=== PATIENT | female | born 1960 | race Caucasian/White ===

== ENCOUNTER 2019-10-29 12:15 | Inpatient (IN) | payer OTHER, SELFPAY ==
[2019-10-29] VITALS (11 sets, daily range): BP systolic 112–160; BP diastolic 62–98; PULSE 84–113; RESP 15–20; TEMP 36.6–36.9; O2SAT 94–98; BMI 30.4
--- NOTE | 2019-10-29 12:37 | ED.DCSUM_ITS ---
- ER Visit Summary Date of Service: 10/29/19 Chief Complaint: Elevated blood sugar History of Present Illness: The patient is a 59 F presenting with elevated blood sugar. Patient states this has been ongoing for several weeks. She states that she was unable to afford her diabetes medication, Janumet. She states she was out of the medication for approximately 1 month. She was able to get this filled 2 days ago and is now taking it again. She states her blood sugar this morning was 590. She has had mild abdominal cramping and nausea. She has had urinary frequency and increased thirst. She complains of blurry vision. She states she has had blurry vision in the past when her blood sugars have been running high. She has had a mild nonproductive cough. She denies shortness of breath. She denies fever or other complaints. Physical Examination: Vitals are stable. Heart rate 113. Patient is afebrile. Alert no acute distress. HEENT exam is unremarkable. Neck is supple. Lungs are clear and equal bilaterally. Heart is regular and tachycardic Abdomen is soft mild diffuse tenderness with no rebound or guarding Extremities are unremarkable. Skin is warm and dry. No focal neurologic deficit. Remainder of exam is unremarkable. Emergency Department Course and Treatment: Patient was given IV fluids. With ambulation her pulse ox remains 98% on room air. Chest x-ray shows no acute process. CBC shows white count 14. Chemistries show sodium 127, glucose 713, BUN 28, creatinine 1.4. Patient started on an insulin drip. Discussed with hospitalist for admission. Disposition: Admission Impression: Hyperglycemia, HHS This note was generated with [employer] dictation software. It may contain incorrect words, spelling, and punctuation that were not noted in review of the chart prior to signing ED Disposition - Plan for ED Patient: Referrals: NOT,DEFINED [NON-STAFF] -
[2019-10-29] MEDS: 0.9% Normal Saline 1,000 ML 1000 ML IV (13:18)
--- NOTE | 2019-10-29 13:20 | RAD_ITS ---
STUDY: X-RAY CHEST REASON FOR EXAM: Female, 59 years old. HYPERGLYCEMIA TECHNIQUE: Single AP portable view of the chest. COMPARISON: None. FINDINGS: The lungs are clear and expanded. There is no demonstrated pleural abnormality. Normal size heart. Normal mediastinum and hank. Normal visualized pulmonary arteries. Normal visualized aortic arch and descending thoracic aorta. There are degenerative changes of the visualized thoracic spine. Normal visualized ribs, clavicles, and shoulders. There is no demonstrated abnormality of the visualized soft tissue structures of the upper abdomen. RAD/Chest 1 View (Portable) IMPRESSION: Normal x-ray examination of the chest. Electronically Signed: Kwesi Garcia, at 13:31 EDT , Service support ,
[2019-10-29 13:29] LABS: Mucous, Urine 0 SEEN /hpf (<or=2+); Red Blood Cells-Urine 0 SEEN /hpf (0-5); Squamous Epithelial Cells - UA 0 SEEN /hpf (5-10)
[2019-10-29 13:40] LABS: Absolute Lymphocyte Count 3.27 X10^3/uL (0.83-4.51); Absolute Neutrophil Count 9.5 X10^3/uL (2.0-7.7); Basophil# 0.16 X10^3/uL; Basophil% 1.1 % (0-1); Eosinophil# 0.17 X10^3/uL; Eosinophils% 1.2 % (0-5); Hematocrit 42.6 % (37-47); Hemoglobin 14.5 g/dL (12.0-15.0); Lymphocyte # 3.27 X10^3/ul (4.0); Lymphocyte % 23.4 % (19-41); Mean Corpuscular Hgb 29.7 pg (27.0-32.0); Mean Corpuscular Volume 87.3 fL (81-99); Mean Platelet Vol. 11.6 fl (6.2-12.0); Monocyte# 0.82 X10^3/uL; Monocyte% 5.9 % (0-10); NRBC Flagged by Analyzer 0 % (0-5); Neutrophil # 9.51 X10^3/uL (2.7-7.7); Platelet Count 266 K/mm3 (150-450); RBC Distribution Width CV 12.7 % (11.6-14.6); RBC Distribution Width SD 40.2 fl (35.1-43.9); Red Blood Count 4.88 M/mm3 (4.2-5.4)
[2019-10-29 13:50] LABS: Anion Gap 10 (5-15); BUN 28 mg/dL (7-18); Calcium,Total 9.6 mg/dL (8.5-10.1); Chloride 93 mmol/L (98-107); EST Glomerular Filtration Rate 41 mL/min (>60); Est Glom Filt Rate - Afr Amer 50 mL/min (>60); Estimated Creatinine Clearance 43.65 ml/min; Glucose 713 mg/dL (74-106); Potassium 4.7 mmol/L (3.5-5.1); Sodium Level 127 mmol/L (136-145)
--- NOTE | 2019-10-29 14:20 | NURSING ---
ICU [facility] HHS
[2019-10-29 14:22] LABS: Color, Urine Yellow (Yellow); Glucose, Dipstick 1000 mg/dl (Normal); Ketone-Dipstick Negative (Negative); Leukocyte Esterase-Dipstick 100 /ul (Negative); Nitrite-Dipstick Positive (Negative); Occult Blood-Urine 10 /ul (Negative); Protein-Dipstick Negative (Negative); Urine Bilirubin Dipstick Negative (Negative); Urine Clarity Clear (Clear); Urine Urobilinogen Normal (Normal)
[2019-10-29 14:28] LABS: Bacteria 2+ /hpf (None Seen); White Blood Cells 0-5 SEEN /hpf (0-5)
--- NOTE | 2019-10-29 14:42 | HP.PCM_ITS ---
Problem List (1) Hyponatremia Status: Acute (2) Acute kidney injury Status: Acute (3) Hyperglycemia Status: Deleted (4) Peripheral neuropathy Status: Chronic (5) Type II diabetes mellitus Status: Chronic (6) Depression Status: Chronic (7) Fibromyalgia Status: Chronic History of Present Illness Date of Admission: 10/29/19 Chief Complaint: Thirst, blurry vision. The patient is a 59 year old F with past medical history as mentioned above presented to the emergency room because of thirst, body aches and blurry vision. According to the patient, her symptoms started around 2 weeks ago with thirst, has been feeling very dry, associated with generalized body aches and pains and over the last few days, she started having blurry vision. She described this vision change as not clear vision, blurry, intermittent, associated with headache and without aggravating or relieving factors. She mentioned that she ran out of her Janumet around 1 month ago because it was very expensive. She has been trying to get her prescriptions but because she moved from [place] to [place], she has no PCP at this time. Finally, she was able to get her prescriptions yesterday and she started taking Janumet yesterday. She knew that her blood sugar is elevated because of this blurry vision. In the past, she was in metformin which gave her chronic diarrhea and was discontinued and started on Janumet. She mentioned that her blood sugar usually under control but not during the last month. She denied any cough or sputum production. Denied fever chills. She did complain of dysuria. She mentioned that she had UTI around 2 weeks ago for which she was given antibiotics when she went to urgent care. In the emergency department, patient was afebrile, slightly tachycardic, blood pressure was slight elevated, pulse ox was normal on room air. Routine blood work was remarkable for leukocytosis, sodium of 127, BUN of 28, creatinine of 1.4, blood glucose of 713 mg/dL. Serum bicarb and anion gap was normal. There was no evidence of DKA. Acetone level was negative. Urinalysis revealed clear urine, positive for nitrite, there was 100 leukocyte esterase, 0-5 WBCs and 2+ bacteria. Chest x-ray showed no acute findings. She is being admitted for hyperglycemic hyperosmolar state, uncontrolled type 2 diabetes mellitus, acute kidney injury, hyponatremia and probable acute cystitis. Past Medical History Past Medical History (Chronic Problems): Chronic Problems (This Medical Record has been edited. Action required.) Restless leg syndrome (Chronic) Peripheral neuropathy (Chronic) Type II diabetes mellitus (Chronic) Depression (Chronic) Fibromyalgia (Chronic) Allergies No Known Allergies Allergy (Verified 10/29/19 12:17) Home Medications: Ambulatory Orders Medication Instructions Recorded Acetaminophen/Diphenhydramine 1 tab PO QHS 10/29/19 [Tylenol Pm Ex-Strength Caplet] Duloxetine HCl 60 mg PO BID 10/29/19 Gabapentin 600 mg PO TID 10/29/19 Ropinirole HCl [Requip] 0.5 mg PO QHS 10/29/19 Tizanidine HCl [Zanaflex] 4 mg PO TID 10/29/19 Surgical History: appendectomy, cholecystectomy Psychiatric History: Depression 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 Denies: Chills, Fever Eyes: Reports: Blurred vision. Denies: Double vision, Drainage, Redness HEENT: Denies: Difficulty Hearing, Ear Pain, Eye Pain, Nasal Congestion, Sore Throat Cardiovascular: Denies: Chest Pain, Claudication, Edema, Light Headedness, Palpitations, Paroxysmal Noc. Dyspnea, Syncope Respiratory: Reports: Cough. Denies: Pleuritic Pain, Shortness of Breath, Shortness of breath at rest, Sputum production, Wheezing Gastrointestinal: Reports: Abdominal Pain, Nausea. Denies: Constipation, Diarrhea, Vomiting Genitourinary: Reports: Dysuria, Frequency. Denies: Hematuria Musculoskeletal: Reports: Leg Pain. Denies: Arm Pain, Back Pain, Foot Pain Skin: Denies: Dryness, Rash Neurological: Reports: Blurred vision, Headaches. Denies: Balance problems, Double vision, Change in Speech, Slurred speech, Confusion, Incoordination, Numbness, Tingling Psychiatric: Reports: Depression. Denies: Anxiety Endocrine: Reports: Polydipsia, Polyuria. Denies: Change in Body Habitus VTE Information - Inpt Only VTE Present on Admission: No VTE Mechan Device Prophylaxis: None VTE Pharm Prophylaxis ordered?: Yes Patient Problems: Active and Suspected Problems (This Medical Record has been edited. Action required.) hyperglycemic hyperosmolar state (Acute) Hyponatremia (Acute) Acute kidney injury (Acute) - Physical Exam Vitals/I&O's: Vital Signs Temp Pulse Resp BP Pulse Ox 98 F 111 H 16 160/81 H 98 10/29/19 12:15 10/29/19 12:29 10/29/19 12:29 10/29/19 12:29 10/29/19 12:29 Oxygen Delivery Method Room Air Weight: 200 lb Body Mass Index (BMI) 30.4 General: Alert, Oriented x3, Cooperative, No apparent distress HEENT: Atraumatic, PERRLA, EOMI, Normocephalic Oral: No Gingival or Mucosal Lesions/ Ulcerations, Dry Mucosa Neck: Supple, No JVD, Negative Carotid Bruits, Trachea Midline, Thyroid Normal Size and Texture Lungs: Clear to auscultation, No rhonchi, No wheeze, No rales, Diminished Cardiovascular: Regular rate, Regular Rhythm, Normal S1, Normal S2, PMI Normal, Tachycardic Abdomen: Bowel Sounds Present, Soft, Non Tender, Non-Distended, No Hepato- splenomegaly Extremities: No clubbing, No cyanosis, No edema Skin: No rashes, No breakdown Lymphatic: No Cervical, Supraclavicular, or Inguinal Adenopathy Neurological: Cranial nerves II-XII grossly intact, Motor Exam 5/5 strength throughout Psych/Mental Status: Normal Affect, Appropriate, Alert and oriented to time, place, person, mood and affect Laboratory Results 10/29/19 13:10: Urine Color Yellow, Urine Clarity Clear, Urine pH 6.0, Ur Specific [place] 1.030, Urine Protein Negative, Urine Glucose (UA) 1000 H, Urine Ketones Negative, Urine Occult Blood 10 H, Urine Nitrite Positive H, Urine Karthik irubin Negative, Urine Urobilinogen Normal, Ur Leukocyte Esterase 100 H, Urine RBC 0 SEEN, Urine WBC 0-5 SEEN, Ur Squamous Epith Cells 0 SEEN, Urine Bacteria 2+, Urine Mucus 0 SEEN 10/29/19 13:19: WBC 14.0 H, RBC 4.88, Hgb 14.5, Hct 42.6, MCV 87.3, MCH 29.7, MCHC 34.0, RDW Std Deviation 40.2, RDW Coeff of Max 12.7, Plt Count 266, MPV 11.6, Immature Gran % (Auto) 0.400, Neut % (Auto) 68.0, Lymph % (Auto) 23.4, [place] % (Auto) 5.9, Eos % (Auto) 1.2, Baso % (Auto) 1.1 H, Absolute Neuts (auto) 9.5 H, Absolute Lymphs (auto) 3.27, Nucleated RBC % 0 10/29/19 13:19: Sodium 127 L, Potassium 4.7, Chloride 93 L, Carbon Dioxide 24.0, Anion Gap 10, BUN 28 H, Creatinine 1.40 H, Estim Creat Clear Calc 43.65, Est GFR (MDRD) Af Amer 50 L, Est GFR (MDRD) Non-Af 41 L, BUN/Creatinine Ratio 20.0, Glucose 713 H*, Calcium 9.6 10/29/19 13:19: Acetone Level NEGATIVE Clinical Impression(s) from Imaging Studies Chest X-Ray 10/29/19 13:20 IMPRESSION: Normal x-ray examination of the chest. Electronically Signed: Kwesi Garcia, at 13:31 EDT , Service support , Current Medications Dextrose (D50w Syringe) 0 gm IV X1 PRN; Protocol PRN Reason: Hypoglycemia Protocol Sodium Chloride () 1,000 mls @ 999 mls/hr IV .Q1H1M ONE Stop: 10/29/19 14:52 Insulin Human Lispro 100 unit/ (Sodium Chloride) 100 mls @ 9.072 mls/hr IV .Q11H2M MARGARET; Protocol Assessment/Plan All Active Problems (This Medical Record has been edited. Action required.) hyperglycemic hyperosmolar state (Acute) Hyponatremia (Acute) Acute kidney injury (Acute) This is a 59 years old female patient presented to the emergency room because of thirst, blurry vision, headache, frequency and dysuria and she was found to have highly elevated blood sugar without evidence of DKA consistent with hyperglycemic hyperosmolar state, also found to have acute kidney injury, hyponatremia and probable acute cystitis. #1 hyperglycemic hyperosmolar state: Blood glucose is 713 mg/dl, serum bicarb is 24 and anion gap is 10, acetone is negative. No evidence of DKA. This is due to noncompliance, patient has not been taking her medication for last month because Janumet is been expensive to help. Plan: Admit to PCU stepdown, keep on n.p.o., start IV insulin drip protocol, Accu-Cheks every 2 hours, BMP every 4 hours, IV fluids, IV antiemetics, Tylenol PRN, check hemoglobin A1c, LFT, repeat CBC and BMP tomorrow morning. Patient mentioned that she had significant chronic diarrhea with metformin and that is why she has been on Janumet. Once stable, patient can be started on glimepiride or glipizide and I informed patient that if her hemoglobin A1c is above 9%, she will need to be on insulin. #2 acute kidney injury/hyponatremia: Attributed to dehydration and hypergl ycemia. Patient denies history of kidney problems, baseline kidney functions are normal but it is probably acute. Admission creatinine is 1.4 0. Plan: IV fluids, input output chart, repeat BMP tomorrow morning. #3 probable acute cystitis: With recent history of acute cystitis 2 weeks ago, completed 3 days of antibiotics. She is still symptomatic, urinalysis reviewed, does have leukocytosis but could be reactive. Plan: Urine culture, start IV Rocephin. #4 type 2 diabetes mellitus: Check hemoglobin A1c, IV insulin drip as above, Accu-Cheks. Patient will need to be started on triple antidiabetic medication such as glimepiride or glipizide. She may need to be on insulin if hemoglobin A1c is highly elevated. #5 peripheral neuropathy/fibromyalgia: Continue gabapentin and Zanaflex. #6 depression: Continue Cymbalta. #7 restless leg syndrome: Continue Requip. #8 DVT prophylaxis: Subcu heparin. This note was generated with [employer] dictation software. It may contain incorrect words, spelling, and punctuation that were not noted in checking the note before signing. Inpatient E&M: 28832 Init Hosp L3
[2019-10-29] MEDS: 0.9% Normal Saline 1,000 ML 999 ML IV (15:07)
--- NOTE | 2019-10-29 15:31 | NURSING ---
1523 insulin drip verifed by yuni new as ordered. iv restarted to rt wrist per pt request for pain at site lt ac.
[2019-10-29 16:10] LABS: Bedside Glucose 416 mg/dL (70-110)
[2019-10-29 16:33] LABS: Hemoglobin A1c 9.9 % (4.2-6.3)
[2019-10-29 16:39] LABS: AST(SGOT) 16 U/L (15-37); Alanine Aminotransfer ALT/SGPT 27 U/L (13-56); Albumin, Serum 3.3 g/dL (3.2-5.0); Alkaline Phosphatase 130 U/L (45-117); Anion Gap 6 (5-15); BUN 25 mg/dL (7-18); BUN/Creat Ratio 21.7 RATIO (10-20); Bilirubin, Direct 0.08 mg/dL (0.00-0.30); Calcium,Total 8.7 mg/dL (8.5-10.1); Chloride 109 mmol/L (98-107); Creatinine, Serum 1.15 mg/dL (0.55-1.02); EST Glomerular Filtration Rate 51 mL/min (>60); Est Glom Filt Rate - Afr Amer 62 mL/min (>60); Estimated Creatinine Clearance 53.13 ml/min; Globulin 3.7 g/dL (2.2-4.2); Glucose 384 mg/dL (74-106); Potassium 3.9 mmol/L (3.5-5.1); Sodium Level 136 mmol/L (136-145)
[2019-10-29] MEDS: 0.9% Normal Saline 1,000 ML 125 ML IV (17:04)
[2019-10-29] MEDS: Ceftriaxone 1 GM/50 ML BAG IV (17:04)
[2019-10-29] MEDS: 0.9% Saline Lock 10 ML Syringe IV ×3 (17:06→21:23)
[2019-10-29 17:15] LABS: Bedside Glucose 284 mg/dL (70-110)
[2019-10-29 17:56] LABS: Bedside Glucose 268 mg/dL (70-110)
[2019-10-29 19:01] LABS: Bedside Glucose 210 mg/dL (70-110)
[2019-10-29 19:21] LABS: Bedside Glucose > 500 mg/dL (70-110)
[2019-10-29 20:40] LABS: Anion Gap 6 (5-15); BUN 21 mg/dL (7-18); BUN/Creat Ratio 26.7 RATIO (10-20); Calcium,Total 8.7 mg/dL (8.5-10.1); Chloride 107 mmol/L (98-107); Creatinine, Serum 0.79 mg/dL (0.55-1.02); EST Glomerular Filtration Rate 80 mL/min (>60); Est Glom Filt Rate - Afr Amer 96 mL/min (>60); Estimated Creatinine Clearance 77.35 ml/min; Glucose 260 mg/dL (74-106); Potassium 3.9 mmol/L (3.5-5.1); Sodium Level 136 mmol/L (136-145)
[2019-10-29] MEDS: Insulin Lispro 100 UNIT/ML INSULN.PEN SC (21:13)
[2019-10-29] MEDS: Heparin Injection (Vial) 5,000 UNIT/ML VIAL 5000 UNIT SC (21:14)
[2019-10-29] MEDS: Gabapentin 600 MG Tablet PO (21:15)
[2019-10-29] MEDS: tiZANidine HCl 2 MG Tablet 4 MG PO (21:15)
[2019-10-29] MEDS: DULoxetine Hcl 60 MG Capsule PO (21:16)
[2019-10-29] MEDS: Pramipexole Di-HCl 0.25 MG Tablet PO (21:16)
[2019-10-29] MEDS: Zolpidem Tartrate 5 MG Tablet PO (21:25)
[2019-10-29 22:20] LABS: Bedside Glucose 290 mg/dL (70-110)
[2019-10-30] VITALS (7 sets, daily range): BP systolic 156–161; BP diastolic 77–84; PULSE 86–95; RESP 12–18; TEMP 36.6–36.7; O2SAT 92–100
[2019-10-30 00:17] LABS: Anion Gap 5 (5-15); BUN 21 mg/dL (7-18); Calcium,Total 8.8 mg/dL (8.5-10.1); Chloride 108 mmol/L (98-107); Creatinine, Serum 0.81 mg/dL (0.55-1.02); EST Glomerular Filtration Rate 77 mL/min (>60); Est Glom Filt Rate - Afr Amer 94 mL/min (>60); Estimated Creatinine Clearance 75.44 ml/min; Glucose 321 mg/dL (74-106); Potassium 4.1 mmol/L (3.5-5.1); Sodium Level 136 mmol/L (136-145)
[2019-10-30] MEDS: Insulin Lispro 100 UNIT/ML INSULN.PEN SC ×4 (01:57→12:17)
[2019-10-30] MEDS: 0.9% Normal Saline 1,000 ML 100 ML IV (01:58)
[2019-10-30 02:06] LABS: Bedside Glucose 341 mg/dL (70-110)
[2019-10-30] MEDS: tiZANidine HCl 2 MG Tablet 4 MG PO (05:44)
[2019-10-30] MEDS: Gabapentin 600 MG Tablet PO (05:44)
[2019-10-30 06:26] LABS: Absolute Lymphocyte Count 4.11 X10^3/uL (0.83-4.51); Absolute Neutrophil Count 5.5 X10^3/uL (2.0-7.7); Basophil# 0.11 X10^3/uL; Eosinophil# 0.31 X10^3/uL; Eosinophils% 2.9 % (0-5); Hematocrit 37.4 % (37-47); Hemoglobin 12.7 g/dL (12.0-15.0); Lymphocyte # 4.11 X10^3/ul (4.0); Lymphocyte % 37.9 % (19-41); Mean Corpuscular Hgb 29.5 pg (27.0-32.0); Mean Platelet Vol. 11.6 fl (6.2-12.0); Monocyte# 0.74 X10^3/uL; Monocyte% 6.8 % (0-10); NRBC Flagged by Analyzer 0 % (0-5); Neutrophil # 5.53 X10^3/uL (2.7-7.7); Platelet Count 236 K/mm3 (150-450); RBC Distribution Width CV 12.8 % (11.6-14.6); RBC Distribution Width SD 40.5 fl (35.1-43.9); White Blood Count 10.8 K/mm3 (4.4-11.0)
--- NOTE | 2019-10-30 06:42 | NURSING ---
Nausea with small emesis this am.
[2019-10-30 06:45] LABS: Bedside Glucose 311 mg/dL (70-110)
[2019-10-30 06:47] LABS: Anion Gap 6 (5-15); BUN 18 mg/dL (7-18); BUN/Creat Ratio 25.3 RATIO (10-20); Calcium,Total 8.8 mg/dL (8.5-10.1); Chloride 108 mmol/L (98-107); Creatinine, Serum 0.71 mg/dL (0.55-1.02); EST Glomerular Filtration Rate 89 mL/min (>60); Est Glom Filt Rate - Afr Amer 108 mL/min (>60); Estimated Creatinine Clearance 86.06 ml/min; Glucose 312 mg/dL (74-106); Potassium 4.2 mmol/L (3.5-5.1); Sodium Level 135 mmol/L (136-145)
[2019-10-30] MEDS: glipiZIDE 5 MG Tablet PO (06:50)
[2019-10-30] MEDS: Pantoprazole Sodium 40 MG Tablet PO (10:28)
[2019-10-30] MEDS: DULoxetine Hcl 60 MG Capsule PO (10:31)
[2019-10-30 10:46] LABS: Bedside Glucose 252 mg/dL (70-110)
--- NOTE | 2019-10-30 11:00 | CASEMGMT ---
Addendum entered by Dorinda Barton 10/30/19 14:17: Meds sent to [facility] pharmacy for discharge and per Jul in the pharmacy, pt's total for meds is $395.51 at this time. Per Jul, $388 of that are the insulins(2 quikpens). The reason pt came in was because she did not want to/was able to pay that much out of pocket for her insulin meds. Peterson ESTRADA aware and pt provided new script for insulin vial/syringes/needles that she can obtain for $24.88 for the vial at [facility]. Pt and Taniya RN updated on all at this time, voice understanding. SStaten GERMAN CM Original Note: RN CM assessment: Face to Face with patient for initial transition planning/care coordination assessment. RN KULDEEP introduced self and role at [facility], pt voices understanding and consents to assessment at this time. Pt is sitting up in bed in no distress at this time. Pt is A/Ox4 at this time and answers all questions appropriately at this time. Care providers, pharmacy, and demographics verified at this time. Presentation: Pt with blood sugar of 590 this am, blurred vision-recent move from [facility], no PCP and unable to afford her DM meds. Admitting dx: Hyperglycemia, Uncontrolled DM PCP: No local PCP, but states is waiting on a call back from [facility] for physician/appt set up. Specialists: Pt states no current specialists, but pt provided info for local harpsichord maker, Dr. Donaldo Burroughs, for possible future consult. Preferred Pharmacy: [facility] Insurance: [employer]-pt states just got started on 's insurance. Prescription Benefit: C[employer] Living Will/HPOA: Pt states does not have LW/HPOA but would like AD info at this time. Pt provided with AD info at this time. LNOK: Gurdeep Manjeet, Living Arrangements: Pt states lives with in mobile home with 2 steps and states no concerns at home at this time. Pt states is independent with ADL's. Transportation: Pt states d/t recent vision changes, her or sisters do most of the driving and pt states no transportation concerns at this time. DME/HHC: Pt states no current DME or need for any at this time. Pt states no hx of HHC or SNF in the past. Pt states no concerns with going home at time of discharge. 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 Pt states smokes about a pack/day of cigarettes and does not drink ETOH. Pt states no further concerns/needs at this time. CM to follow for any further discharge planning/needs. Advised pt to ask for CM if any further questions/concerns/needs arise, voices understanding. Pt Goal: Home Plan: Home Ileana PORTER CM
--- NOTE | 2019-10-30 11:27 | PCM.DC ---
- Discharge Diagnoses Current Active Problems: Current Active and Chronic Problems (This Medical Record has been edited. Action required.) hyperglycemic hyperosmolar state (Acute) Restless leg syndrome (Chronic) Hyponatremia (Acute) Acute kidney injury (Acute) Peripheral neuropathy (Chronic) Type II diabetes mellitus (Chronic) Depression (Chronic) Fibromyalgia (Chronic) You will use the following diet at home:: Calorie/Carbohydrate Controlled (specify 1200, 1400, etc) - 1800 usman / day Your food should be the consistency of: Regular Your liquids should be the consistency of: Regular/Thin Discharge Activity: Return to Normal Activity Additional Instructions: Please check your blood sugar upon waking before eating. Check your blood sugar before each meal as well. Record the results of each time you check your blood sugar along with what time of the day it was. Present these findings to your PCP at follow-up. You will need a BMP lab test within a week, ask your new PCP to order this for you. Allergies/Adverse Reactions: Allergies No Known Allergies Allergy (Verified 10/29/19 12:17) Medications to take at Discharge Acetaminophen/Diphenhydramine [Tylenol Pm Ex-Strength Caplet] 1 tab PO QHS 10/29/19 Gabapentin 600 mg PO TID 10/29/19 Tizanidine HCl [Zanaflex] 4 mg PO TID 10/29/19 Duloxetine HCl 60 mg PO BID #60 10/30/19 Insulin Glargine [Lantus SoloStar Pen] 20 units SUBCUT DAILY #1 pen 10/30/19 Insulin Lispro [Humalog KwikPen] 5 unit SUBCUT TIDAC #1 insuln.pen 10/30/19 Ropinirole HCl [Requip] 0.5 mg PO QHS #30 tab 10/30/19 glipiZIDE [Glucotrol] 5 mg PO BIDAC #60 tab 10/30/19 The following prescriptions were given: Duloxetine HCl 60 mg PO BID #60 glipiZIDE [Glucotrol] 5 mg PO BIDAC #60 tab Transmission Status: Pending to [facility] Insulin Lispro [Humalog KwikPen] 5 unit SUBCUT TIDAC #1 insuln.pen Transmission Status: Pending to [facility] Insulin Glargine [Lantus SoloStar Pen] 20 units SUBCUT DAILY #1 pen Transmission Status: Pending to [facility] Ropinirole HCl [Requip] 0.5 mg PO QHS #30 tab Transmission Status: Pending to [facility] Orders to be completed after discharge: Glucometer Location: None Selected Primary Care Physician: NOT,DEFINED [NON-STAFF] - Please follow up with your Primary Care Physician in: 1 week Test Results: Test results from this visit will be discussed in further detail at your follow-up appointment, if applicable. Please Follow Up With: Donaldo Burroughs MD - Endocrinology When: 1-2 weeks Proposed Discharge Date: 10/30/19
--- NOTE | 2019-10-30 13:23 | DS.PCM_ITS ---
<Foster Sullivan - Last Filed: 10/30/19 13:23> Discharge Date and Diagnosis Date of Admission: 10/29/19 Date of Discharge: 10/30/19 - Primary Discharge Diagnosis Active and Suspected Problems (This Medical Record has been edited. Action required.) #1. hyperglycemic hyperosmolar state (Acute) 2/2 DMt2 with medication noncompliance. Hyponatremia (Acute) 2/2 pseudohyponatremia 2/2 above Acute kidney injury 2/2 #1 (Acute) resolved UTI ruled out Depression Fibromyalgia Peripheral neuropathy Obesity - Secondary Discharge Diagnosis Chronic Problems (This Medical Record has been edited. Action required.) Restless leg syndrome (Chronic) Peripheral neuropathy (Chronic) Type II diabetes mellitus (Chronic) Depression (Chronic) Fibromyalgia (Chronic) Hospital Course and Treatment Imaging Results: RAD/Chest 1 View (Portable) IMPRESSION: Normal x-ray examination of the chest. Operations: None Procedures: None Summary of Care Provided: Hospital Course: The patient is a 59 year old F with pmhx notable for Dmt2, who presented to the ER with increased thirst, blurry vision, and body aches. She was found to have severely elevated glucose >700. The patient had just moved here from [place], did not have any of her janumet, and was unable to afford a refill, and had no PCP. She felt increased thirst at home so she tried to quench her thirst with a large quantity of non diet Mountain Dew and Milk. She had no improvement in her symptoms. Acetone was negative and gap was normal. She was admitted and placed on an insulin drip. The following day her symptoms had improved, she tolerated a diet, and she desired to be discharged home. A1C was 9.9. We transitioned her to glipizide with lantus and novolog however she was unable to afford lantus and novolog. Insulin was changed to Novolin N 8 units BID. She was educated concerning a diabetic friendly diet. I also gave her an Rx for a glucometer and accessories, and for syringes/needles. She was discharged home in stable condition. She requested a refill of her home meds until she gets a PCP - I gave her 1 month of her non controlled meds. She will need a BMP this week, follow up with a PCP this week, and I referred her to endocrinology [facility] 2 weeks, Dr. Burroughs. This patient was seen by Foster Sullivan PA-C under the supervision of Dr. Bocanegra. [] - Physical Exam Vitals/I&O's: Vital Signs Temp Pulse Resp BP Pulse Ox 97.9 F 95 18 157/80 H 100 10/30/19 13:21 10/30/19 13:21 10/30/19 13:21 10/30/19 13:21 10/30/19 13:21 Oxygen Delivery Method Room Air Weight: 197 lb 15.602 oz Body Mass Index (BMI) 30.4 Finger Stick Blood Glucose 268 Intake and Output for Last 24 Hours 10/28/19 10/29/19 10/30/19 23:59 23:59 23:59 Intake Total 2778.89 / 2778.89 2118.33 / 2118.33 Output Total 800 / 800 Balance 2778.89 / 2778.89 1318.33 / 1318.33 General: Alert, Oriented x3, Cooperative HEENT: Atraumatic, PERRLA, EOMI, Normocephalic Neck: Supple, No JVD, Negative Carotid Bruits Lungs: Clear to auscultation, Normal air movement Cardiovascular: Regular rate, No murmurs Abdomen: Bowel Sounds Present, Soft, Non Tender, Obese Extremities: No edema, Capillary Refill Less than 3 Seconds Skin: No rashes, No breakdown Musculoskeletal: No Tenderness to Palpation of Joints or Extremities Neurological: Cranial nerves II-XII grossly intact Psych/Mental Status: Normal Affect, Appropriate, Alert and oriented to time, place, person, mood and affect Microbiology Past 72 Hours 10/29/19 13:10 Urine, Clean Catch Urine Culture - Preliminary Gram negative keira Laboratory Results 10/29/19 13:10: Urine Color Yellow, Urine Clarity Clear, Urine pH 6.0, Ur Specific [place] 1.030, Urine Protein Negative, Urine Glucose (UA) 1000 H, Urine Ketones Negative, Urine Occult Blood 10 H, Urine Nitrite Positive H, Urine Bilirubin Negative, Urine Urobilinogen Normal, Ur Leukocyte Esterase 100 H, Urine RBC 0 SEEN, Urine WBC 0-5 SEEN, Ur Squamous Epith Cells 0 SEEN, Urine Bacteria 2+, Urine Mucus 0 SEEN 10/29/19 13:19: WBC 14.0 H, RBC 4.88, Hgb 14.5, Hct 42.6, MCV 87.3, MCH 29.7, MCHC 34.0, RDW Std Deviation 40.2, RDW Coeff of Max 12.7, Plt Count 266, MPV 11.6, Immature Gran % (Auto) 0.400, Neut % (Auto) 68.0, Lymph % (Auto) 23.4, [place] % (Auto) 5.9, Eos % (Auto) 1.2, Baso % (Auto) 1.1 H, Absolute Neuts (auto) 9.5 H, Absolute Lymphs (auto) 3.27, Nucleated RBC % 0 10/29/19 13:19: Sodium 127 L, Potassium 4.7, Chloride 93 L, Carbon Dioxide 24.0, Anion Gap 10, BUN 28 H, Creatinine 1.40 H, Estim Creat Clear Calc 43.65, Est GFR (MDRD) Af Amer 50 L, Est GFR (MDRD) Non-Af 41 L, BUN/Creatinine Ratio 20.0, Glucose 713 H*, Calcium 9.6 10/29/19 13:19: Acetone Level NEGATIVE 10/29/19 13:19: Hemoglobin A1c 9.9 H 10/29/19 14:50: POC Glucose > 500 H* 10/29/19 16:02: POC Glucose 416 H 10/29/19 16:07: Sodium 136, Potassium 3.9, Chloride 109 H, Carbon Dioxide 21.0, Anion Gap 6, BUN 25 H, Creatinine 1.15 H, Estim Creat Clear Calc 53.13, Est GFR (MDRD) Af Amer 62, Est GFR (MDRD) Non-Af 51 L, BUN/Creatinine Ratio 21.7 H, Glucose 384 H, Calcium 8.7, Total Bilirubin 0.30, Direct Bilirubin 0.08, AST 16, ALT 27, Alkaline Phosphatase 130 H, Total Protein 7.0, Albumin 3.3, Globulin 3.7 10/29/19 17:02: POC Glucose 284 H 10/29/19 17:51: POC Glucose 268 H 10/29/19 18:54: POC Glucose 210 H 10/29/19 20:08: Sodium 136, Potassium 3.9, Chloride 107, Carbon Dioxide 23.0, Anion Gap 6, BUN 21 H, Creatinine 0.79, Estim Creat Clear Calc 77.35, Est GFR (MDRD) Af Amer 96, Est GFR (MDRD) Non-Af 80, BUN/Creatinine Ratio 26.7 H, Glucose 260 H, Calcium 8.7 10/29/19 21:12: POC Glucose 290 H 10/29/19 23:51: Sodium 136, Potassium 4.1, Chloride 108 H, Carbon Dioxide 23.0, Anion Gap 5, BUN 21 H, Creatinine 0.81, Estim Creat Clear Calc 75.44, Est GFR (MDRD) Af Amer 94, Est GFR (MDRD) Non-Af 77, BUN/Creatinine Ratio 26.0 H, Glucose 321 H, Calcium 8.8 10/30/19 01:55: POC Glucose 341 H 10/30/19 05:56: WBC 10.8, RBC 4.30, Hgb 12.7, Hct 37.4, MCV 87.0, MCH 29.5, MCHC 34.0, RDW Std Deviation 40.5, RDW Coeff of Max 12.8, Plt Count 236, MPV 11.6, Immature Gran % (Auto) 0.400, Neut % (Auto) 51.0, Lymph % (Auto) 37.9, [place] % (Auto) 6.8, Eos % (Auto) 2.9, Baso % (Auto) 1.0, Absolute Neuts (auto) 5.5, Absolute Lymphs (auto) 4.11, Nucleated RBC % 0 10/30/19 05:56: Sodium 135 L, Potassium 4.2, Chloride 108 H, Carbon Dioxide 21.0, Anion Gap 6, BUN 18, Creatinine 0.71, Estim Creat Clear Calc 86.06, Est GFR (MDRD) Af Amer 108, Est GFR (MDRD) Non-Af 89, BUN/Creatinine Ratio 25.3 H, Glucose 312 H, Calcium 8.8 10/30/19 06:34: POC Glucose 311 H 10/30/19 10:16: POC Glucose 252 H Current Medications Acetaminophen (Tylenol) 650 mg PO Q6H PRN PRN PRN Reason: Pain Score 1-10/Temp > 100.7 F Dextrose (D50w Syringe) 0 gm IV X1 PRN; Protocol PRN Reason: Hypoglycemia Duloxetine HCl (Cymbalta) 60 mg PO BID MARGARET Last Admin: 10/30/19 10:31 Dose: 60 mg Documented by: Gabapentin (Neurontin) 600 mg PO TID [facility] Last Admin: 10/30/19 05:44 Dose: 600 mg Documented by: Glipizide (Glucotrol) 5 mg PO BIDAC [facility] Last Admin: 10/30/19 06:50 Dose: 5 mg Documented by: Glucagon () 1 mg IM .X1 PRN PRN Reason: Hypoglycemia Heparin Sodium (Porcine) (Heparin Na) 5,000 unit SC Q12 [facility] Last Admin: 10/30/19 10:31 Dose: Not Given Documented by: Ceftriaxone Sodium (Rocephin) 1 gm in 50 mls @ 100 mls/hr IV Q24 [facility] Last Admin: 10/30/19 10:31 Dose: Not Given Documented by: Sodium Chloride () 250 mls @ 15 mls/hr IV .[id number] PRN PRN Reason: Saline Flush Sodium Chloride () 250 mls @ 15 mls/hr IV .[id number] PRN PRN Reason: Additional IVPB Infusion Insulin Glargine (Lantus (Bkc)) 20 units SC DAILY [facility] Last Admin: 10/30/19 10:28 Dose: 20 units Documented by: Insulin Human Lispro (Humalog Kwikpen (Bkc)) 0 unit SC Q4 [facility]; Protocol Last Admin: 10/30/19 10:30 Dose: 3 unit Documented by: Insulin Human Lispro (Humalog Kwikpen (Bkc)) 5 unit SC TIDAC [facility] Last Admin: 10/30/19 12:17 Dose: 5 units Documented by: Ondansetron HCl (Zofran) 4 mg IV Q8H PRN PRN PRN Reason: NAUSEA/VOMITING Pantoprazole Sodium (Protonix) 40 mg PO DAILY [facility] Last Admin: 10/30/19 10:28 Dose: 40 mg Documented by: Pramipexole Dihydrochloride (Mirapex) 0.25 mg PO QHS [facility] Last Admin: 10/29/19 21:16 Dose: 0.25 mg Documented by: Senna/Docusate Sodium (Senokot-S, [place]-Colace) 2 tablet PO BID PRN PRN Reason: Constipation Sodium Chloride () 10 - 40 ml IV UD PRN PRN Reason: SALINE FLUSH Last Admin: 10/29/19 21:23 Dose: 10 ml Documented by: Tizanidine HCl (Zanaflex) 4 mg PO TID MARGARET Last Admin: 10/30/19 05:44 Dose: 4 mg Documented by: Zolpidem Tartrate (Ambien (Generic)) 5 mg PO QHS PRN PRN PRN Reason: INSOMNIA Last Admin: 10/29/19 21:25 Dose: 5 mg Documented by: Discharge Diet: 1800 Calorie Control Diet Discharge Activity: Return to Normal Activity Home Medications: Medications to take at Discharge Acetaminophen/Diphenhydramine [Tylenol Pm Ex-Strength Caplet] 1 tab PO QHS 10/29/19 Gabapentin 600 mg PO TID 10/29/19 Tizanidine HCl [Zanaflex] 4 mg PO TID 10/29/19 Duloxetine Hcl [Cymbalta] 60 mg PO BID #60 cap 10/30/19 Insulin NPH Human Isophane [Humulin N] 8 unit SQ BID #1 vial 10/30/19 Ropinirole HCl [Requip] 0.5 mg PO QHS #30 tab 10/30/19 Syringe with Needle, 1 ml [Syringe with Needle Disp] 1 ea MC BID #60 disp.syrin 10/30/19 glipiZIDE [Glucotrol] 5 mg PO BIDAC #60 tab 10/30/19 Following Prescrptions Were Given to Patient: Duloxetine Hcl [Cymbalta] 60 mg PO BID #60 cap Transmission Status: Received by [facility]pharmacy [id number] glipiZIDE [Glucotrol] 5 mg PO BIDAC #60 tab Transmission Status: Received by [facility] Insulin NPH Human Isophane [Humulin N] 8 unit SQ BID #1 vial Transmission Status: Received by [facility] Ropinirole HCl [Requip] 0.5 mg PO QHS #30 tab Transmission Status: Received by [facility] Syringe with Needle, 1 ml [Syringe with Needle Disp] 1 ea MC BID #60 disp.syrin Prescription Printed Other Amb Orders: Glucometer Location: None Selected Primary Care Physician: NOT,DEFINED [NON-STAFF] - Please follow up with your Primary Care Physician in: 1 week Please Follow Up With: Donaldo Burroughs MD - Endocrinology When: 1-2 weeks Disposition: Home Minutes spent on discharge:: 40 Patient Condition:: Stable Medical Necessity - Tobacco Use Smoking Status: Current every day smoker Tobacco Use: Cigarettes Meaningful Use Info Meaningful Use Diagnoses (Choose all that apply): None applicable <Rosendo Bocanegra - Last Filed: 10/30/19 14:10> Discharge Date and Diagnosis - Secondary Discharge Diagnosis Chronic Problems (This Medical Record has been edited. Action required.) Restless leg syndrome (Chronic) Peripheral neuropathy (Chronic) Type II diabetes mellitus (Chronic) Depression (Chronic) Fibromyalgia (Chronic) Hospital Course and Treatment Operations: None Procedures: None Summary of Care Provided: Patient seen and examined independently. Data reviewed. I agree with the above note by the physician seismic survey assistant. The patient is a 59 year old F presents with blurred vision, polyuria, polydipsia and myalgias. Patient was found to be hyper ischemic hyperosmolar state due to uncontrolled diabetes. Patient had been on Janumet but had stopped taking it due to cost but despite that and knowing that she is a diabetic and would not eat or drink, patient was still drinking regular sodas such as Mountain Dew and Pepsi and drinking large quantities of them. A1c was 9.9. Patient was transitioned over to insulin and I was doing well. Due to cost, the plan would be to discharge patient with NovoLog twice daily. The hope is that with patient following a more stringent diet and essentially not drinking her calories at that would help with her glycemic control and that the hope that she will be able to be transitioned off of insulin and perhaps put back on oral medications, such as metformin. [] - Physical Exam Vitals/I&O's: Vital Signs Temp Pulse Resp BP Pulse Ox 36.6 C 95 18 157/80 H 100 10/30/19 13:21 10/30/19 13:21 10/30/19 13:21 10/30/19 13:21 10/30/19 13:21 Oxygen Delivery Method Room Air Weight: 89.8 kg Body Mass Index (BMI) 30.4 Finger Stick Blood Glucose 268 Intake and Output for Last 24 Hours 10/28/19 10/29/19 10/30/19 23:59 23:59 23:59 Intake Total 2778.89 / 2778.89 2118.33 / 2118.33 Output Total 800 / 800 Balance 2778.89 / 2778.89 1318.33 / 1318.33 General: Alert, Cooperative HEENT: Atraumatic Neck: No Nodes, Trachea Midline Lungs: Clear to auscultation, Normal air movement, No rhonchi, No wheeze Cardiovascular: Regular rate, No murmurs Abdomen: Bowel Sounds Present, Soft, Non Tender, Obese Extremities: No edema, No Calf Tenderness Skin: No rashes, No breakdown Psych/Mental Status: Normal Affect, Appropriate Microbiology Past 72 Hours 10/29/19 13:10 Urine, Clean Catch Urine Culture - Preliminary Gram negative keira Laboratory Results 10/29/19 13:10: Urine Color Yellow, Urine Clarity Clear, Urine pH 6.0, Ur Sp ecific [place] 1.030, Urine Protein Negative, Urine Glucose (UA) 1000 H, Urine Ketones Negative, Urine Occult Blood 10 H, Urine Nitrite Positive H, Urine Bilirubin Negative, Urine Urobilinogen Normal, Ur Leukocyte Esterase 100 H, Urine RBC 0 SEEN, Urine WBC 0-5 SEEN, Ur Squamous Epith Cells 0 SEEN, Urine Bacteria 2+, Urine Mucus 0 SEEN 10/29/19 13:19: Acetone Level NEGATIVE 10/29/19 13:19: Hemoglobin A1c 9.9 H 10/29/19 14:50: POC Glucose > 500 H* 10/29/19 16:02: POC Glucose 416 H 10/29/19 16:07: Sodium 136, Potassium 3.9, Chloride 109 H, Carbon Dioxide 21.0, Anion Gap 6, BUN 25 H, Creatinine 1.15 H, Estim Creat Clear Calc 53.13, Est GFR (MDRD) Af Amer 62, Est GFR (MDRD) Non-Af 51 L, BUN/Creatinine Ratio 21.7 H, Glucose 384 H, Calcium 8.7, Total Bilirubin 0.30, Direct Bilirubin 0.08, AST 16, ALT 27, Alkaline Phosphatase 130 H, Total Protein 7.0, Albumin 3.3, Globulin 3.7 10/29/19 17:02: POC Glucose 284 H 10/29/19 17:51: POC Glucose 268 H 10/29/19 18:54: POC Glucose 210 H 10/29/19 20:08: Sodium 136, Potassium 3.9, Chloride 107, Carbon Dioxide 23.0, Anion Gap 6, BUN 21 H, Creatinine 0.79, Estim Creat Clear Calc 77.35, Est GFR (MDRD) Af Amer 96, Est GFR (MDRD) Non-Af 80, BUN/Creatinine Ratio 26.7 H, Glucose 260 H, Calcium 8.7 10/29/19 21:12: POC Glucose 290 H 10/29/19 23:51: Sodium 136, Potassium 4.1, Chloride 108 H, Carbon Dioxide 23.0, Anion Gap 5, BUN 21 H, Creatinine 0.81, Estim Creat Clear Calc 75.44, Est GFR (MDRD) Af Amer 94, Est GFR (MDRD) Non-Af 77, BUN/Creatinine Ratio 26.0 H, Glucose 321 H, Calcium 8.8 10/30/19 01:55: POC Glucose 341 H 10/30/19 05:56: WBC 10.8, RBC 4.30, Hgb 12.7, Hct 37.4, MCV 87.0, MCH 29.5, MCHC 34.0, RDW Std Deviation 40.5, RDW Coeff of Max 12.8, Plt Count 236, MPV 11.6, Immature Gran % (Auto) 0.400, Neut % (Auto) 51.0, Lymph % (Auto) 37.9, [place] % (Auto) 6.8, Eos % (Auto) 2.9, Baso % (Auto) 1.0, Absolute Neuts (auto) 5.5, Absolute Lymphs (auto) 4.11, Nucleated RBC % 0 10/30/19 05:56: Sodium 135 L, Potassium 4.2, Chloride 108 H, Carbon Dioxide 21.0, Anion Gap 6, BUN 18, Creatinine 0.71, Estim Creat Clear Calc 86.06, Est GFR (MDRD) Af Amer 108, Est GFR (MDRD) Non-Af 89, BUN/Creatinine Ratio 25.3 H, Glucose 312 H, Calcium 8.8 10/30/19 06:34: POC Glucose 311 H 10/30/19 10:16: POC Glucose 252 H Discharge Diet: 1800 Calorie Control Diet Discharge Activity: Return to Normal Activity Disposition: Home Patient Condition:: Stable Medical Necessity - Tobacco Use Tobacco Use: Cigarettes Meaningful Use Info Meaningful Use Diagnoses (Choose all that apply): None applicable Inpatient E&M: 91330 Disch Hosp
--- NOTE | 2019-10-30 13:44 | CASEMGMT ---
SW gave patient information on [email or web address] and [facility] for future use with expensive medications. Nuria MAYA MSW
== END 2019-10-30 13:37 | disposition home or self-care (01) | DRG 638 ==
LOC: ED 14:48 → PCU 15:12
PROVIDERS: Admitting Provider Hospitalist; Emergency Provider Emergency Medicine
DX: E11.00 Type 2 diabetes mellitus with hyperosmolarity without nonketotic hyperglycemic-hyperosmolar coma (NKHHC) (principal); E87.1 Hypo-osmolality and hyponatremia; N17.9 Acute kidney failure, unspecified; M79.7 Fibromyalgia; F32.9 Major depressive disorder, single episode, unspecified; E66.9 Obesity, unspecified; Z91.14 Patient's other noncompliance with medication regimen; Z68.30 Body mass index [BMI] 30.0-30.9, adult; E11.42 Type 2 diabetes mellitus with diabetic polyneuropathy; G25.81 Restless legs syndrome; F17.210 Nicotine dependence, cigarettes, uncomplicated
CPT/HCPCS: 36415; 71045; 80048; 80076; 81001; 82009; 82962; 83036; 85025; 87077; 87086; 87088; 87186; 94762; 96360; 97802; 99251; 99285; 99406; J7030; A4216; G0463

== ENCOUNTER → 2020-01-27 17:31 | Outpatient (CLI) | payer OTHER, SELFPAY ==
[2019-12-25 10:48] VITALS: BMI 30.4
== END ==
PROVIDERS: Referring Provider Family Medicine; Visit Provider Family Medicine
DX: N39.0 Urinary tract infection, site not specified (principal)
CPT/HCPCS: 87086; 87088; 87186

== ENCOUNTER → 2020-01-30 14:43 | Outpatient (CLI) | payer OTHER, SELFPAY ==
[2019-12-25 10:48] VITALS: BMI 30.4
--- NOTE | 2020-01-30 14:45 | US_ITS ---
STUDY: RENAL ULTRASOUND - COMPLETE REASON FOR EXAM: Female, 59 years old. BILATERAL FLANK PAIN TECHNIQUE: Ultrasound evaluation of the kidneys was performed with real-time and static swift-scale imaging. COMPARISON: None. FINDINGS: RIGHT KIDNEY: Normal location of the right kidney, which is normal in size. The right kidney measures 11.7 x 4.8 x 3.8 cm. There is a normal cortex of the right kidney. The renal cortex measures 1.9 cm. There is no right renal mass or cyst. There are no right renal calculi. There is no right hydronephrosis. DISTAL RIGHT URETER: There is non-visualization of the distal right ureter. There is no demonstrated right ureterovesical junction calculus. There is a visualized right ureteral jet. LEFT KIDNEY: Normal location of the left kidney, which is normal in size. The left kidney measures 12.0 x 5.1 x 4.7 cm. There is a normal cortex of the left kidney. The renal cortex measures 1.4 cm. There is no left renal mass or cyst. There are no left renal calculi. There is no left hydronephrosis. DISTAL LEFT URETER: There is non-visualization of the distal left ureter. There is no demonstrated left ureterovesical junction calculus. There is a visualized left ureteral jet. AORTA: There is no elongation or tortuosity of the abdominal aorta. I.V.C.: The IVC is patent. BLADDER: The bladder is incompletely distended US/Kidney and Bladder IMPRESSION: No suspicious sonographic findings Electronically Signed: Smith Gilbert MD at 8:20 EDT , Service support ,
== END ==
PROVIDERS: PCP Family Medicine; Referring Provider Family Medicine; Visit Provider Family Medicine
DX: R10.9 Unspecified abdominal pain (principal)
CPT/HCPCS: 76770

== ENCOUNTER → 2020-03-30 12:30 | Outpatient (CLI) | payer OTHER, SELFPAY ==
[2019-12-25 10:48] VITALS: BMI 30.4
[2020-03-30 17:00] LABS: AST(SGOT) 15 U/L (15-37); Alanine Aminotransfer ALT/SGPT 24 U/L (13-56); Albumin, Serum 3.9 g/dL (3.2-5.0); Alkaline Phosphatase 98 U/L (45-117); Anion Gap 5 (5-15); BUN 15 mg/dL (7-18); BUN/Creat Ratio 15.8 RATIO (10-20); CRP 3.69 mg/L (0.0-3.0); Calcium,Total 9.5 mg/dL (8.5-10.1); Chloride 108 mmol/L (98-107); Creatinine, Serum 0.95 mg/dL (0.55-1.02); EST Glomerular Filtration Rate 64 mL/min (>60); Est Glom Filt Rate - Afr Amer 77 mL/min (>60); Glucose 59 mg/dL (74-106); Potassium 4.1 mmol/L (3.5-5.1); Protein, Total 7.9 g/dL (6.4-8.2); Sodium Level 141 mmol/L (136-145)
[2020-03-30 17:01] LABS: Rheumatoid Factor < 10.0 IU/mL (<15)
[2020-03-30 17:13] LABS: Absolute Neutrophil Count 3.9 X10^3/uL (2.0-7.7); Basophil# 0.12 X10^3/uL; Basophil% 1.3 % (0-1); Eosinophil# 0.27 X10^3/uL; Eosinophils% 2.9 % (0-5); Hematocrit 41.4 % (37-47); Hemoglobin 13.1 g/dL (12.0-15.0); Lymphocyte % 43.7 % (19-41); Mean Corp Hgb Conc 31.6 g/dL (32-36); Mean Corpuscular Hgb 29.9 pg (27.0-32.0); Mean Corpuscular Volume 94.5 fL (81-99); Mean Platelet Vol. 12.3 fl (6.2-12.0); Monocyte# 0.87 X10^3/uL; Monocyte% 9.5 % (0-10); NRBC Flagged by Analyzer 0 % (0-5); Neutrophil # 3.87 X10^3/uL (2.7-7.7); Neutrophil % 42.3 % (47-70); Platelet Count 276 K/mm3 (150-450); RBC Distribution Width CV 13.8 % (11.6-14.6); RBC Distribution Width SD 47.8 fl (35.1-43.9); Red Blood Count 4.38 M/mm3 (4.2-5.4); White Blood Count 9.2 K/mm3 (4.4-11.0)
[2020-03-30 17:27] LABS: Erythrocyte Sedimentation Rate 9 mm/hr (0-30)
[2020-04-01 15:20] LABS: ANTINUCLEAR ANTIBODIES DIRECT Negative (Negative)
== END ==
PROVIDERS: PCP Family Medicine; Referring Provider Family Medicine; Visit Provider Family Medicine
DX: M25.50 Pain in unspecified joint (principal)
CPT/HCPCS: 36415; 80053; 85025; 85652; 86038; 86140; 86431

== ENCOUNTER → 2020-07-30 11:41 | Outpatient (CLI) | payer OTHER, SELFPAY ==
[2019-12-25 10:48] VITALS: BMI 30.4
[2020-07-30 13:06] LABS: Amphetamine Urine VISTA NEGATIVE (<1000 ng/mL); Barbiturate Urine VISTA NEGATIVE (< 200 ng/mL); Benzodiazepine Urine VISTA POSITIVE (< 200 ng/mL); Cocaine Urine VISTA NEGATIVE (< 300 ng/mL); Ecstacy Urine VISTA NEGATIVE (< 500 ng/mL); Methadone Urine VISTA NEGATIVE (< 300 ng/mL); PCP Urine VISTA NEGATIVE (< 25 ng/mL); THC Urine VISTA POSITIVE (< 50 ng/mL); Vista UDS pH Range 6
== END ==
PROVIDERS: PCP Family Medicine; Referring Provider Anesthesiology Pain Medicine; Visit Provider Anesthesiology Pain Medicine
DX: F11.20 Opioid dependence, uncomplicated (principal)
CPT/HCPCS: 80307

== ENCOUNTER → 2020-12-10 12:59 | Outpatient (CLI) | payer OTHER, SELFPAY ==
[2019-12-25 10:48] VITALS: BMI 30.4
--- NOTE | 2020-12-10 13:00 | VDLE_ITS ---
Reason For Study: pain Procedure LEFT This is a venous duplex using B-mode, color GSV is normal. flow and spectral Doppler. CFV is compressible, spontaneous, phasic, Exam performed in department. competent, and demonstrates normal The exam was abbreviated due to the COVID 19 augmentation. protocol. FV is compressible, spontaneous, phasic, The exam was diagnostic. competent and demonstrates normal A preliminary report was called and/or faxed augmentation. to Dr. Correa. POP V is compressible, spontaneous, phasic, competent and demonstrates normal augmentation. T/P Trunk is compressible. PTV is compressible. LT PerV is compressible. VL/Venous Duplex US, Unilateral Interpretation Summary Deep veins of the left lower extremity are patent and compressible segmentally. There is no evidence of left lower extremity deep vein thrombosis. Valvular competence appears intac t within the proximal deep venous system on the left . The left great saphenous vein appears patent a nd compressible segmentally. Ordering Physician: Santos Correa Performed By: Toni Hernández RVT
== END ==
LOC: CVS 12:59
PROVIDERS: PCP Family Medicine; Referring Provider Orthopaedic Surgery; Visit Provider Orthopaedic Surgery
DX: M79.605 Pain in left leg (principal)
CPT/HCPCS: 93971

== ENCOUNTER → 2021-01-23 07:48 | Outpatient (CLI) | payer OTHER, SELFPAY ==
[2019-12-25 10:48] VITALS: BMI 30.4
--- NOTE | 2021-01-23 07:52 | MRI_ITS ---
HISTORY: Low back pain, bilateral leg pain. TECHNIQUE: Multiplanar and multisequence MR images of the lumbar spine. IV Contrast dosage and agent: None. # of images incl. paperwork: 135. COMPARISON: None. FINDINGS: VERTEBRAE: Vertebral body heights maintained. Degenerative bone marrow endplate changes of T12-L1 and L4-5. ALIGNMENT: No significant anterior or posterior subluxation. CONUS: Normal morphology and position at L1. SOFT TISSUES: Mild posterior subcutaneous edema. Hepatomegaly. Subcentimeter right renal cysts. 9 mm indeterminate left renal lesion. INTERVERTEBRAL DISCS: T12-L1: Mild disc bulge with facet arthropathy. No significant central canal stenosis or foraminal narrowing. L1-2:No significant posterior disc herniation, central canal stenosis, or foraminal narrowing. L2-3, L3-4: Minimal disc bulges and facet arthropathy with very mild bilateral foraminal narrowing. No significant central canal stenosis. L4-5: Mild posterior disc bulge osteophyte complex and facet arthropathy with minimal narrowing of the thecal sac. Mild left and mild-moderate right foraminal narrowing. L5-S1: Left disc protrusion and facet arthropathy resulting in no significant central canal stenosis, moderate left foraminal narrowing, and abutment of the left L5 nerve root. MRI/Spine Lumbar (Routine) IMPRESSION: Mild multilevel degenerative disc disease as described above. Small indeterminate left renal lesion. Recommend correlation with ultrasound or multiphasic CT/MRI to assess for complex cyst versus small solid mass. at 0858 Reported and signed by: Katie Vance MD Electronically Signed: Katie Vance MD at 8:57 EDT Tel , Service support ,
[2021-01-23 10:12] LABS: Amphetamine Urine VISTA NEGATIVE (<1000 ng/mL); Barbiturate Urine VISTA NEGATIVE (< 200 ng/mL); Benzodiazepine Urine VISTA NEGATIVE (< 200 ng/mL); Cocaine Urine VISTA NEGATIVE (< 300 ng/mL); Ecstacy Urine VISTA NEGATIVE (< 500 ng/mL); Methadone Urine VISTA NEGATIVE (< 300 ng/mL); PCP Urine VISTA NEGATIVE (< 25 ng/mL); THC Urine VISTA POSITIVE (< 50 ng/mL); Vista UDS pH Range 5
== END ==
PROVIDERS: PCP Family Medicine; Referring Provider Anesthesiology Pain Medicine; Visit Provider Anesthesiology Pain Medicine
DX: M54.16 Radiculopathy, lumbar region (principal); M54.17 Radiculopathy, lumbosacral region; M51.36 Other intervertebral disc degeneration, lumbar region; M51.37 Other intervertebral disc degeneration, lumbosacral region
CPT/HCPCS: 72148; 80307

== ENCOUNTER 2021-09-17 10:42 | Outpatient (CLI) | payer OTHER, SELFPAY ==
[2021-09-17 12:35] LABS: Vitamin D,25 Hydroxy 21.6 ng/mL
[2021-09-17 12:44] LABS: AST(SGOT) 24 U/L (15-37); Alanine Aminotransfer ALT/SGPT 38 U/L (13-56); Albumin, Serum 3.9 g/dL (3.2-5.0); Alkaline Phosphatase 121 U/L (45-117); Anion Gap 5 (5-15); BUN 13 mg/dL (7-18); BUN/Creat Ratio 13.1 RATIO (10-20); Bilirubin, Direct < 0.05 mg/dL (0.00-0.30); Calcium,Total 9.6 mg/dL (8.5-10.1); Chloride 104 mmol/L (98-107); Cholesterol 234 mg/dL (200); Creatinine, Serum 0.99 mg/dL (0.55-1.02); EST Glomerular Filtration Rate 60 mL/min (>60); Est Glom Filt Rate - Afr Amer 73 mL/min (>60); Globulin 4.5 g/dL (2.2-4.2); Glucose 322 mg/dL (74-106); High Density Lipoprotein 57 mg/dL; Potassium 4.4 mmol/L (3.5-5.1); Protein, Total 8.4 g/dL (6.4-8.2); Sodium Level 132 mmol/L (136-145); Triglycerides 196 mg/dL; Very Low Density Lipoprotein 39 mg/dL (5-40)
== END 2021-09-17 23:59 | disposition home or self-care (01) ==
LOC: MFPLAB 10:44
PROVIDERS: PCP Family Medicine; Referring Provider Family Medicine; Visit Provider Family Medicine
DX: E55.9 Vitamin D deficiency, unspecified (principal); E11.65 Type 2 diabetes mellitus with hyperglycemia
CPT/HCPCS: 36415; 80048; 80061; 80076; 82306

== ENCOUNTER → 2022-04-12 | Outpatient (CLI) | payer BC, SELFPAY ==
--- NOTE | 2022-04-12 06:30 | MRI_ITS ---
STUDY: MRI LUMBAR SPINE WITHOUT CONTRAST REASON FOR EXAM: Female, 61 years old. L3-L4 herniated disc. TECHNIQUE: Standardized fat and water weighted pulse sequences were obtained in the sagittal and axial planes. COMPARISON: MRI lumbar spine without contrast 01/23/2021. FINDINGS: T11-T12: (Sagittal only). Normal endplates. Normal disc height, hydration and morphology. No ventral extradural defect. Normal central canal and bilateral intervertebral neural foramina. T12-L1: Tiny Schmorl''s nodes in the adjacent anterior endplates with reactive edema of the underlying vertebral marrow are new findings. Moderate disc space height narrowing is unchanged. Mild ventral extra dural defect due to posterior bulging annulus is unchanged. Normal facet joints. Normal central canal and bilateral lateral recesses. Normal bilateral intervertebral neural foramina. Small right renal cyst is visible at this level but unchanged. Normal lumbar lordosis. There is no substantial scoliosis. Normal conus medullaris that terminates at the T12-L1 disc space level. L1-2: Normal endplates. Normal disc height, hydration and morphology. Normal bilateral facet joints. Normal central canal and bilateral lateral recesses. Normal bilateral intervertebral neural foramina. Small right anterior renal cyst is unchanged. L2-3: Normal endplates. Normal disc height, hydration and morphology. Normal bilateral facet joints. Normal central canal and bilateral lateral recesses. Normal bilateral intervertebral neural foramina. L3-4: Normal endplates. Normal disc height, hydration and morphology. Mild bilateral degenerative facet arthropathy are unchanged. Normal central canal and bilateral lateral recesses. Normal bilateral intervertebral neural foramina. Small round right renal cyst is unchanged. L4-5: Normal endplates. Moderate disc space height narrowing. Mild ventral extradural defect is posterior bulging annulus and unchanged. Mild left degenerative facet arthropathy is unchanged. Normal right facet joint. Normal central canal and bilateral lateral recesses. Mild stenosis of the right intervertebral neural foramen is unchanged. Normal left intervertebral neural foramen. L5-S1: Normal endplates. Mild disc space height narrowing. Small posterior bulging annulus is unchanged. No ventral extradural defect due to presence of ventral epidural fat. Normal facet joints. Normal central canal and bilateral lateral recesses. Moderate stenosis of the left intervertebral neural foramen is unchanged. Normal right intervertebral neural foramen. Normal visualized sacral ala. Normal visualized paraspinous soft tissue structures. MRI/Spine Lumbar (Routine) IMPRESSION: 1. Moderate stenosis of the left L5-S1 intervertebral neural foramen and small L5 posterior bulging annulus are unchanged. 2. L4-L5 posterior bulging annulus and mild stenosis of the right intervertebral neural foramen are unchanged. 3. No MRI evidence of lumbar extruded disc fragment. 4. At least 3 small right renal cysts but unchanged since 01/23/2021. Electronically Signed: Isaias Frazier MD at 14:31 EDT ,
== END | disposition home or self-care (01) ==
LOC: MRI 06:30
PROVIDERS: PCP Family Medicine; Referring Provider Orthopaedic Surgery; Visit Provider Orthopaedic Surgery
DX: M51.26 Other intervertebral disc displacement, lumbar region (principal)
CPT/HCPCS: 72148

== ENCOUNTER → 2022-07-28 | Outpatient (CLI) | payer BC, SELFPAY ==
--- NOTE | 2022-07-28 12:14 | CT_ITS ---
STUDY: CT ABDOMEN AND PELVIS WITHOUT CONTRAST REASON FOR EXAM: Female, 61 years old. Suspect kidney stone. Right flank pain. RADIATION DOSAGE (If Supplied By Facility): CTDIvol = ( 13.25 ) mGy, DLP = ( 638.64 ) mGycm TECHNIQUE: Transaxial images were obtained from the dome of the diaphragm to the symphysis pubis without oral contrast, and without intravenous contrast. Sagittal and coronal images were reconstructed. Individualized dose optimization techniques were used for this CT. COMPARISON: None. FINDINGS: The visualized lung bases are unremarkable. Minimal anterior pericardial thickening. Normal liver. There are surgical clips in the gallbladder fossa consistent with a prior cholecystectomy. Normal spleen. Normal pancreas. There is a small, circumscribed, smooth, low attenuation left adrenal mass, consistent with an adrenal adenoma. This measures 1 cm. Normal right adrenal gland. Normal right kidney. Normal left kidney. Normal visualized stomach. Normal small intestine. There are scattered colonic diverticula consistent with diverticulosis. The appendix is visualized and appears normal. There is scattered atherosclerotic calcification of the abdominal aorta, without a demonstrated aneurysm. Normal inferior vena cava. Normal retroperitoneum. Normal urinary bladder. Bilateral tubal ligation clips are seen. Normal abdominal wall. There are degenerative changes of the visualized lumbar spine. CT/Abdomen/Pelvis without Cont IMPRESSION: Status post cholecystectomy. Scattered sigmoid diverticula. Small left adrenal adenoma. No evidence of ureteral obstruction. Electronically Signed: Kwesi Garcia MD at 12:59 EST ,
== END | disposition home or self-care (01) ==
LOC: CT 12:13
PROVIDERS: PCP Family Medicine; Visit Provider Nurse Practitioner Family
DX: R31.9 Hematuria, unspecified (principal)
CPT/HCPCS: 74176

== ENCOUNTER → 2022-07-28 | Outpatient (CLI) | payer BC, SELFPAY ==
[2022-07-28 12:23] LABS: Bacteria 0 SEEN /hpf (None Seen); Mucous, Urine 0 SEEN /hpf (<or=2+); Red Blood Cells-Urine 0 SEEN /hpf (0-5); Squamous Epithelial Cells - UA 0 SEEN /hpf (5-10); White Blood Cells 0 SEEN /hpf (0-5)
[2022-07-28 12:33] LABS: Color, Urine Yellow (Yellow); Glucose, Dipstick Normal (Normal); Ketone-Dipstick Negative (Negative); Leukocyte Esterase-Dipstick 100 /ul (Negative); Nitrite-Dipstick Negative (Negative); Occult Blood-Urine Negative /ul (Negative); Protein-Dipstick Negative (Negative); Specific Gravity, Urine 1.025 (1.002-1.030); Urine Bilirubin Dipstick Negative (Negative); Urine Clarity Clear (Clear); Urine Urobilinogen Normal (Normal)
[2022-07-28 17:49] LABS: Absolute Lymphocyte Count 4.13 X10^3/uL (0.83-4.51); Absolute Neutrophil Count 5.2 X10^3/uL (2.0-7.7); Basophil# 0.13 X10^3/uL; Basophil% 1.3 % (0-1); Eosinophil# 0.16 X10^3/uL; Eosinophils% 1.5 % (0-5); Hematocrit 43.2 % (37-47); Hemoglobin 13.8 g/dL (12.0-15.0); Lymphocyte # 4.13 X10^3/ul (0.83-4.51); Lymphocyte % 39.9 % (19-41); Mean Corp Hgb Conc 31.9 g/dL (32-36); Mean Corpuscular Hgb 29.6 pg (27.0-32.0); Mean Corpuscular Volume 92.7 fL (81-99); Mean Platelet Vol. 11.3 fl (6.2-12.0); Monocyte# 0.68 X10^3/uL; Monocyte% 6.6 % (0-10); NRBC Flagged by Analyzer 0 % (0-5); Neutrophil # 5.21 X10^3/uL (2.7-7.7); Neutrophil % 50.3 % (47-70); Platelet Count 311 K/mm3 (150-450); RBC Distribution Width CV 13.4 % (11.6-14.6); RBC Distribution Width SD 45.8 fl (35.1-43.9); Red Blood Count 4.66 M/mm3 (4.2-5.4); White Blood Count 10.4 K/mm3 (4.4-11.0)
[2022-07-28 18:36] LABS: Anion Gap 9 (5-15); BUN 17 mg/dL (7-18); BUN/Creat Ratio 17.2 RATIO (10-20); Calcium,Total 9.8 mg/dL (8.5-10.1); Chloride 105 mmol/L (98-107); Creatinine, Serum 0.99 mg/dL (0.55-1.02); EST Glomerular Filtration Rate 61 mL/min (>60); Est Glom Filt Rate - Afr Amer 73 mL/min (>60); Glucose 161 mg/dL (74-106); Potassium 4.3 mmol/L (3.5-5.1); Sodium Level 140 mmol/L (136-145)
== END | disposition home or self-care (01) ==
LOC: LABSPEC 12:11
PROVIDERS: PCP Family Medicine; Visit Provider Nurse Practitioner Family
DX: R10.9 Unspecified abdominal pain (principal)
CPT/HCPCS: 36415; 80048; 81001; 85025; 87077; 87086; 87088; 87186

== ENCOUNTER → 2023-07-19 | Outpatient (CLI) | payer BC, SELFPAY ==
--- OUTSIDE RECORDS SUMMARY | 2023-07-19 16:57 | XMS RPT_ITS | CCD ---
Author Name Unknown Address [address] [place] [address] Organization [facility] Care Team Providers Care Sales Management Trainee Name Role Phone MICHELINE RODRÍGUEZ DO Primary Care Physician [phone] MICHELINE RODRÍGUEZ DO Primary Care Unavailable ARIEL ZUNIGA, ANA Ponce Attending UnavailWALTER Pearl Attending Unavailable ANNE RAIN, MICHELINE Primary Care Unavailable GENA CARD DO Attending Unavailable ANNE RAIN, MICHELINE Primary Care Unavailable Medications Current Medications Medication Drug Class(es) Dates Sig (Normalized) Sig (Original) acetaminophen 325 mg / oxyCODONE hydrochloride 5 mg oral tablet (3 sources) Opioid Agonist Start: 03-16-2022 End: 03-19-2022 take 1 tablet by mouth every six hours as needed for pain Percocet 5 mg-325 mg oral tablet Dose = 1 tab(s), Oral, q6h, PRN for pain, X 3 day(s), # 12 tab(s), 0 Refill(s), Sciatica, 88.6 Start Date: 03/16/22 Stop Date: 03/19/22 Status: Ordered Completed/Discontinued Medications Medication Drug Class(es) Dates Sig (Normalized) Sig (Original) acetaminophen 325 mg / HYDROcodone bitartrate 5 mg oral tablet (2 sources) Opioid Agonist Start: 07-03-2020 End: 07-06-2020 take 1 tablet by mouth every six hours as needed for pain Fulton 325- 5 mg oral tablet Dose = 1 tab(s), Oral, q6h, PRN as needed for pain, # 12 tab(s), 0 Refill(s), Flank pain Start Date: 07/03/20 Stop Date: 07/06/20 Status: Ordered diazePAM 5 mg oral tablet (2 sources) Benzodiazepine Start: 07-05-2020 End: 07-10-2020 Valium 5 mg oral tablet Dose : 5 mg = 1 tab(s), Oral, TID, PRN Muscle spasm, # 15 tab(s), 0 Refill(s), Back pain Start Date: 07/05/20 Stop Date: 07/10/20 Status: Ordered etodolac 400 mg oral tablet (2 sources) Nonsteroidal Anti-inflammatory Drug Start: 03-09-2022 End: 03-16-2022 etodolac 400 mg oral tablet Dose : 400 mg = 1 tab(s), Oral, BID, # 14 tab(s), 0 Refill(s), Sciatica Start Date: 03/09/22 Stop Date: 03/16/22 Status: Ordered predniSONE 20 mg oral tablet (2 sources) Start: 07-03-2020 End: 07-08-2020 predniSONE 20 mg oral tablet Dose : 20 mg = 1 tab(s), Oral, Daily, # 5 tab(s), 0 Refill(s), Flank pain Start Date: 07/03/20 Stop Date: 07/08/20 Status: Ordered Problems Problem Classification Problem Date Documented Da te Episodic/Chronic Spondylosis; intervertebral disc disorders; other back problems (4 sources) Sciatica; Translations: [Sciatica, unspecified side] Onset: 03-09-2022 Episodic Results Test Name Value Interpretation Reference Range Facil ity Vital Signs Date Time Vital Sign Value Performing Clinician Faci lity 03-16-2022 06:55-0400 Body height 172.[address] ANA GEORGE MD [facility] 03-16-2022 06:55-0400 Body temperature 98.24 [degF] DR ANA GEORGE MD [facility] 03-16-2022 06:55-0400 Body weight 88.[address] ANA GEORGE MD [facility] 03-16-2022 06:55-0400 Diastolic blood pressure 92 mm[Hg] DR ANA GEORGE MD [facility] 03-16-2022 06:55-0400 Heart rate 93 /min DR ANA GEORGE MD [facility] 03-16-2022 06:55-0400 Respiratory rate 18 /min DR ANA GEORGE MD [facility] 03-16-2022 06:55-0400 Systolic blood pressure 168 mm[Hg] DR ANA GEORGE MD [facility] 03-09-2022 04:50-0400 Body height 172.7 cm GENA CARD DO [facility] 03-09-2022 04:50-0400 Body temperature 98.24 [degF] GENA CARD DO [facility] 03-09-2022 04:50-0400 Body weight 86.4 kg GENA CARD DO [facility] 03-09-2022 04:50-0400 Diastolic blood pressure 84 mm[Hg] GENA CARD DO [facility] 03-09-2022 04:50-0400 Heart rate 98 /min GENA CARD DO [facility] 03-09-2022 04:50-0400 Respiratory rate 20 /min GENA CARD DO [facility] 03-09-2022 04:50-0400 Systolic blood pressure 175 mm[Hg] GENA CARD DO [facility] Encounters Encounter Date Encounter Type Care Provider Facility Start: 03-16-2022 End: 03-16-2022 Emergency department patient visit MICHELINE ANNE DO Facility:B Start: 03-16-2022 End: 03-16-2022 Emergency department patient visit DR ANA GEORGE MD [facility] Start: 03-11-2022 End: 03-11-2022 Emergency department patient visit WALTER NAJERA Facility:B Start: 03-09-2022 End: 03-09-2022 Emergency department patient visit GENA CARD Facility:B Start: 03-09-2022 End: 03-09-2022 Emergency department patient visit GENA CARD DO [facility] Procedures Date Procedure Procedure Detail Performing Clinician Appendectomy GENA CARD DO Cholecystectomy GENA MARLA ROBERTSON DO Immunizations Immunization Date Immunization Notes Care Provider Fa [facility] 02-23-2020 tetanus toxoid, redu alan diphtheria toxoid, and acellular pertussis vaccine, adsorbed GENA CARD DO [facility] Payers Date Payer Category Payer Unknown [id number] 1960 Unknown [id number] 1960 Unknown [id number] 1960 Unknown [id number] Social History Date Type Detail Facility Tobacco smoking status [facility] Start: 03-16-2022 Tobacco smoking status Heavy t obacco smoker (finding) [facility] Functional Status Date Assessment Result Facility 03-16-2022 Functional Status Standard Safet y ID band on, Call device within reach, Bed in low position, Wheels locked, Upper/Half-Length side-rails up, personal items within reach [facility] 03-09-2022 Functional [facility] Mental Status Date Assessment Result Facility 09-07-2022 Mental Status Orientation Oriented x 4 [facility] 03-09-2022 Mental Status Oriented x 4 [facility] Discharge instructions 03-16-2022 Note Date & Type Note Facility 03-16-2022 Hospital Discharg e instructions Patient Education 03/16/2022 08:44:19 Possible Causes of Low Back or Leg Pain Possible Causes of Low Back or Leg Pain BIG: The symptoms in your back or leg may be due to pressure on a nerve. This pressure may be caused by a damaged disk or by abnormal bone growth. Either way, you may feel pain, burning, tingling, or numbness. If you have pressure on a nerve that connects to the sciatic nerve, pain may shoot down your leg. Pressure from the disk Constant wear and tear can weaken a disk over time and cause back pain. The disk can then be damaged by a sudden movement or injury. If its soft center starts to bulge, the disk may press on a nerve. Or the outside of the disk may tear, and the soft center may squeeze through and pinch a nerve. Pressure from bone As a disk wears out, the vertebrae right above and below the disk start to touch. This can put pressure on a nerve. Often, abnormal bone (called bone spurs) grows where the vertebrae rub against each other. This can cause the foramen or the spinal canal to narrow (called stenosis) and press against a nerve. [id number] [employer]. [address] [place] [address]. All rights reserved. This information is not intended as a substitute for professional medical care. Always follow your healthcare professional's instructions. 03/16/2022 08:44:16 Sciatica Sciatica Sciatica is a condition that causes pain in the lower back that spreads down into the buttock, hip, and leg. Sometimes the leg pain can happen without any back pain. Sciatica happens when a spinal nerve is irritated or has pressure put on it as comes out of the spinal canal in the lower back. This most often happens when a bulge or rupture of a nearby spinal disk presses on the nerve. Sciatica can also be caused by a narrowing of the spinal canal (spinal stenosis) or spasm of the muscle in the buttocks that the sciatic nerve passes through (pyriform muscle). Sciatica is also called lumbar radiculopathy. Sciatica may begin after a sudden twisting or bending force, such as in a car accident. Or it can happen after a simple awkward movement. In either case, muscle spasm often also happens. Muscle spasm makes the pain worse. A healthcare provider makes a diagnosis of sciatica from your symptoms and a physical exam. Unless you had an injury from a car accident or fall, you usually won t have X-rays taken at this time. This is because the nerves and disks in your back can t be seen on an X-ray. If the provider sees signs of a compressed nerve, you will need to schedule an MRI scan as an outpatient. Signs of a compressed nerve include loss of strength in a leg. Most sciatica gets better with medicine, exercise, and physical therapy. If your symptoms continue after at least 3 months of medical treatment, you may need surgery or injections to your lower back. Home care Follow these tips when caring for yourself at home: You may need to stay in bed the first few days. But as soon as possible, begin sitting up or walking. This will help you avoid problems that come from staying in bed for long periods. When in bed, try to find a position that is comfortable. A firm mattress is best. Try lying flat on your back with pillows under your knees. You can also try lying on your side with your knees bent up toward your chest and a pillow between your knees. Avoid sitting for long periods. This puts more stress on your lower back than standing or walking. Use heat from a hot shower, hot bath, or heating pad to help ease pain. Massage can also help. You can also try using an ice pack. You can make your own ice pack by putting ice cubes in a plastic bag. Wrap the bag in a thin towel. Try both heat and cold to see which works best. Use the method that feels best for 20 minutes several times a day. You may use acetaminophen or ibuprofen to ease pain, unless another pain medicine was prescribed. Note: If you have chronic liver or kidney disease, talk with your healthcare provider before taking these medicines. Also talk with your provider if you ve had a stomach ulcer or gastrointestinal bleeding. Use safe lifting methods. Don t lift anything heavier than 15 pounds until all of the pain is gone. Follow-up care Follow up with your healthcare provider, or as advised. You may need physical therapy or additional tests. If X-rays were taken, a radiologist will look at them. You will be told of any new findings that may affect your care. When to seek medical advice Call your healthcare provider right away if any of these occur: Pain gets worse even after taking prescribed medicine Weakness or numbness in 1 or both legs or hips Numbness in your groin or genital area You can t control your bowel or bladder Fever Redness or swelling over your back or spine [id number] [employer]. [address] [place], [place] [address]. All rights reserved. This information is not intended as a substitute for professional medical care. Always follow your healthcare professional's instructions. Follow Up Care 03/16/2022 06:53:38 With:MICHELINE RODRÍGUEZ DO Address: [address] [place] [address] [place] [phone] When:Within 2 Day(s) Comments:Return to ED if symptoms worsen [facility] Clinical Note 03-16-2022 Note Date & Type Note Facility 03-16-2022 Note Discharge Instructions Thank you for allowing [facility] to assist you with your healthcare needs. The following is important discharge information regarding your hospital visit. Diagnosis from Today's Visit Sciatica Leg pain-swelling What to Do Next Instructions from Your Care Team No qualifying data available. Post Acute Orders No qualifying data available. You Need to Schedule the Following Appointments Follow Up with MICHELINE RODRÍGUEZ DO When In 2 days Why: Return to ED if symptoms worsen Where: [address] [place] [address] [address] [place] [address]- [phone] Allergies [facility]A Medications Please ask your primary doctor or pharmacist before taking any other medication not listed, including over the counter drugs, herbal medications, vitamins and or supplements as they may interact with your home medications. What How Much When Why Instructions Last Dose Changed acetaminophen-oxyCODONE (Percocet 5 mg-325 mg oral tablet) 1 tab(s) by mouth Every 4 hours as needed for for pain Back pain Duration: 3 Days Changed acetaminophen-oxyCODONE (Percocet 5 mg-325 mg oral tablet) 1 tab(s) by mouth Every 6 hours as needed for for pain Sciatica Duration: 3 Days Printed Prescription Unchanged acetaminophen-hydrocodone (Fulton 325- 5 mg oral tablet) 1 tab(s) by mouth Every 6 hours as needed for as needed for pain Flank pain Duration: 3 Days Unchanged diazePAM (Valium 5 mg oral tablet) 1 tab(s) by mouth Three (3) times a day as needed for Muscle spasm Back pain Duration: 5 Days Unchanged DULoxetine (DULoxetine 60 mg oral delayed release capsule) Unchanged etodolac (etodolac 400 mg oral tablet) 1 tab(s) by mouth Two (2) times a day Sciatica Duration: 7 Days Unchanged fluconazole (fluconazole 150 mg oral tablet) Unchanged gabapentin (gabapentin 600 mg oral tablet) Unchanged glyBURIDE (glyBURIDE 5 mg oral tablet) Unchanged meloxicam (meloxicam 7.5 mg oral tablet) Unchanged predniSONE (predniSONE 20 mg oral tablet) 1 tab(s) by mouth Every day Flank pain Duration: 5 Days Unchanged rOPINIRole (rOPINIRole 0.5 mg oral tablet) Please take this list to your next doctor s visit. Bring all medications you take, including over the counter medications, herbals and other supplements with you to your doctor s visit. Patients and families are reminded to discard old lists and to update any records with all medication providers or retail pharmacies. Medication Leaflets acetaminophen and oxycodone (a SEET a MIN oh fen and OX i KOE done) Endocet 10/325, Endocet 2.5/325, Endocet 5/325, Endocet 7.5/325, Nalocet, Percocet, Primlev What is the most important information I should know about acetaminophen and oxycodone? MISUSE OF OPIOID MEDICINE CAN CAUSE ADDICTION, OVERDOSE, OR . Keep the medication in a place where others cannot get to it. Taking opioid medicine during may cause life-threatening withdrawal symptoms in the . Fatal side effects can occur if you use opioid medicine with alcohol, or with other drugs that cause drowsiness or slow your breathing. Stop taking this medicine and call your doctor right away if you have skin redness or a rash that spreads and causes blistering and peeling. What is acetaminophen and oxycodone? Acetaminophen and oxycodone is a combination medicine used to relieve moderate to severe pain. Acetaminophen and oxycodone contains an opioide medicine and may be habit-forming. Acetaminophen and oxycodone may also be used for purposes not listed in this medication guide. What should I discuss with my healthcare provider before taking acetaminophen and oxycodone? You should not use this medicine if you are allergic to acetaminophen or oxycodone, or if you have: severe asthma or breathing problems; or a blockage in your stomach or intestines. Tell your doctor if you have ever had: breathing problems, sleep apnea; liver disease; a drug or alcohol addiction; kidney disease; a head injury or seizures; urination problems; or problems with your thyroid, pancreas, or gallbladder. If you use opioid medicine while you are , your baby could become dependent on the drug. This can cause life-threatening withdrawal symptoms in the baby after it is born. Babies born dependent on opioids may need medical treatment for several weeks. Ask a doctor before using opioid medicine if you are . Tell your doctor if you notice severe drowsiness or slow breathing in the nursing baby. How should I take acetaminophen and oxycodone? Follow all directions on your prescription label. Never take this medicine in larger amounts, or for longer than prescribed. An overdose can damage your liver or cause . Tell your doctor if you feel an increased urge to use more of this medicine. Never share opioid medicine with another person, especially someone with a history of drug abuse or addiction. MISUSE CAN CAUSE ADDICTION, OVERDOSE, OR . Keep the medicine in a place where others cannot get to it. Selling or giving away opioid medicine is against the law. Measure liquid medicine carefully. Use the dosing syringe provided, or use a medicine dose-measuring device (not a kitchen spoon). If you need surgery or medical tests, tell the doctor ahead of time that you are using this medicine. You should not stop using this medicine suddenly. Follow your doctor's instructions about tapering your dose. Store at room temperature away from moisture and heat. Keep track of your medicine. You should be aware if anyone is using it improperly or without a prescription. Do not keep leftover opioid medication. Just one dose can cause in someone using this medicine accidentally or improperly. Ask your pharmacist where to locate a drug take-back disposal program. If there is no take-back program, flush the unused medicine down the toilet. What happens if I miss a dose? Since this medicine is used for pain, you are not likely to miss a dose. Skip any missed dose if it is almost time for your next dose. Do not use two doses at one time. What happens if I overdose? Seek emergency medical attention or call the Poison Help line at . An overdose of this medicine can be fatal, especially in a child or other person using the medicine without a prescription. Overdose symptoms may include nausea, vomiting, sweating, severe drowsiness, pinpoint pupils, slow breathing, or no breathing. Your doctor may recommend you get naloxone (a medicine to reverse an opioid overdose) and keep it with you at all times. A person caring for you can give the naloxone if you stop breathing or don't wake up. Your caregiver must still get emergency medical help and may need to perform CPR (cardiopulmonary resuscitation) on you while waiting for help to arrive. Anyone can buy naloxone from a pharmacy or local health department. Make sure any person caring for you knows where you keep naloxone and how to use it. What should I avoid while taking acetaminophen and oxycodone? Avoid driving or operating machinery until you know how this medicine will affect you. Dizziness or drowsiness can cause falls, accidents, or severe injuries. Do not drink alcohol. Dangerous side effects or could occur. Ask a doctor or pharmacist before using any other medicine that may contain acetaminophen (sometimes abbreviated as APAP). Taking certain medications together can lead to a fatal overdose. What are the possible side effects of acetaminophen and oxycodone? Get emergency medical help if you have signs of an allergic reaction: hives; difficulty breathing; swelling of your face, lips, tongue, or throat. Opioid medicine can slow or stop your breathing, and may occur. A person caring for you should give naloxone and/or seek emergency medical attention if you have slow breathing with long pauses, blue colored lips, or if you are hard to wake up. In rare cases, acetaminophen may cause a severe skin reaction that can be fatal. This could occur even if you have taken acetaminophen in the past and had no reaction. Stop taking this medicine and call your doctor right away if you have skin redness or a rash that spreads and causes blistering and peeling. Call your doctor at once if you have: noisy breathing, sighing, shallow breathing, breathing that stops; a light-headed feeling, like you might pass out; weakness, tiredness, fever, unusual bruising or bleeding; confusion, unusual thoughts or behavior; problems with urination; liver problems--nausea, upper stomach pain, tiredness, loss of appetite, dark urine, rex-colored stools, jaundice (yellowing of the skin or eyes); low cortisol levels-- nausea, vomiting, loss of appetite, dizziness, worsening tiredness or weakness; or high levels of serotonin in the body--agitation, hallucinations, fever, sweating, shivering, fast heart rate, muscle stiffness, twitching, loss of coordination, nausea, vomiting, diarrhea. Serious breathing problems may be more likely in older adults and in those who are debilitated or have wasting syndrome or chronic breathing disorders. Common side effects include: dizziness, drowsiness, feeling tired; feelings of extreme happiness or sadness; nausea, vomiting, stomach pain; constipation; or headache. This is not a complete list of side effects and others may occur. Call your doctor for medical advice about side effects. You may report side effects to FDA at 4-489-DPD-5508. What other drugs will affect acetaminophen and oxycodone? You may have breathing problems or withdrawal symptoms if you start or stop taking certain other medicines. Tell your doctor if you also use an antibiotic, antifungal medication, heart or blood pressure medication, seizure medication, or medicine to treat HIV or hepatitis C. Opioid medication can interact with many other drugs and cause dangerous side effects or . Be sure your doctor knows if you also use: cold or allergy medicines, bronchodilator asthma/COPD medication, or a diuretic ('water pill'); medicines for motion sickness, irritable bowel syndrome, or overactive bladder; other opioids--opioid pain medicine or prescription cough medicine; a sedative like Valium--diazepam, alprazolam, lorazepam, Xanax, Klonopin, Versed, and others; drugs that make you sleepy or slow your breathing--a sleeping pill, muscle relaxer, medicine to treat mood disorders or mental illness; drugs that affect serotonin levels in your body--a stimulant, or medicine for depression, Parkinson's disease, migraine headaches, serious infections, or nausea and vomiting. This list is not complete. Other drugs may affect acetaminophen and oxycodone, including prescription and meuy-czh-gvwgbqj medicines, vitamins, and herbal products. Not all possible interactions are listed here. Where can I get more information? Your doctor or pharmacist can provide more information about acetaminophen and oxycodone. Remember, keep this and all other medicines out of the reach of children, never share your medicines with others, and use this medication only for the indication prescribed. Every effort has been made to ensure that the information provided by [employer] ('[employer]') is accurate, up-to-date, and complete, but no guarantee is made to that effect. Drug information contained herein may be time sensitive. [employer] information has been compiled for use by healthcare practitioners and consumers in the [place] and therefore [employer] does not warrant that uses outside of the [place] are appropriate, unless specifically indicated otherwise. [employer]'s drug information does not endorse drugs, diagnose patients or recommend therapy. [employer] drug information is an informational resource designed to assist licensed healthcare practitioners in caring for their patients and/or to serve consumers viewing this service as a supplement to, and not a substitute for, the expertise, skill, knowledge and judgment of healthcare practitioners. The absence of a warning for a given drug or drug combination in no way should be construed to indicate that the drug or drug combination is safe, effective or appropriate for any given patient. [employer] does not assume any responsibility for any aspect of healthcare administered with the aid of information [employer] provides. The information contained herein is not intended to cover all possible uses, directions, precautions, warnings, drug interactions, allergic reactions, or adverse effects. If you have questions about the drugs you are taking, check with your doctor, nurse or pharmacist. Copyright 2684-6407 [employer]. Version: 20.03. Revision Date: 08/14/2020. Education Materials Possible Causes of Low Back or Leg Pain BIG: The symptoms in your back or leg may be due to pressure on a nerve. This pressure may be caused by a damaged disk or by abnormal bone growth. Either way, you may feel pain, burning, tingling, or numbness. If you have pressure on a nerve that connects to the sciatic nerve, pain may shoot down your leg. Pressure from the disk Constant wear and tear can weaken a disk over time and cause back pain. The disk can then be damaged by a sudden movement or injury. If its soft center starts to bulge, the disk may press on a nerve. Or the outside of the disk may tear, and the soft center may squeeze through and pinch a nerve. Pressure from bone As a disk wears out, the vertebrae right above and below the disk start to touch. This can put pressure on a nerve. Often, abnormal bone (called bone spurs) grows where the vertebrae rub against each other. This can cause the foramen or the spinal canal to narrow (called stenosis) and press against a nerve. [id number] [employer]. [address] [place] [address]. All rights reserved. This information is not intended as a substitute for professional medical care. Always follow your healthcare professional's instructions. Sciatica Sciatica is a condition that causes pain in the lower back that spreads down into the buttock, hip, and leg. Sometimes the leg pain can happen without any back pain. Sciatica happens when a spinal nerve is irritated or has pressure put on it as comes out of the spinal canal in the lower back. This most often happens when a bulge or rupture of a nearby spinal disk presses on the nerve. Sciatica can also be caused by a narrowing of the spinal canal (spinal stenosis) or spasm of the muscle in the buttocks that the sciatic nerve passes through (pyriform muscle). Sciatica is also called lumbar radiculopathy. Sciatica may begin after a sudden twisting or bending force, such as in a car accident. Or it can happen after a simple awkward movement. In either case, muscle spasm often also happens. Muscle spasm makes the pain worse. A healthcare provider makes a diagnosis of sciatica from your symptoms and a physical exam. Unless you had an injury from a car accident or fall, you usually won t have X-rays taken at this time. This is because the nerves and disks in your back can t be seen on an X-ray. If the provider sees signs of a compressed nerve, you will need to schedule an MRI scan as an outpatient. Signs of a compressed nerve include loss of strength in a leg. Most sciatica gets better with medicine, exercise, and physical therapy. If your symptoms continue after at least 3 months of medical treatment, you may need surgery or injections to your lower back. Home care Follow these tips when caring for yourself at home: You may need to stay in bed the first few days. But as soon as possible, begin sitting up or walking. This will help you avoid problems that come from staying in bed for long periods. When in bed, try to find a position that is comfortable. A firm mattress is best. Try lying flat on your back with pillows under your knees. You can also try lying on your side with your knees bent up toward your chest and a pillow between your knees. Avoid sitting for long periods. This puts more stress on your lower back than standing or walking. Use heat from a hot shower, hot bath, or heating pad to help ease pain. Massage can also help. You can also try using an ice pack. You can make your own ice pack by putting ice cubes in a plastic bag. Wrap the bag in a thin towel. Try both heat and cold to see which works best. Use the method that feels best for 20 minutes several times a day. You may use acetaminophen or ibuprofen to ease pain, unless another pain medicine was prescribed. Note: If you have chronic liver or kidney disease, talk with your healthcare provider before taking these medicines. Also talk with your provider if you ve had a stomach ulcer or gastrointestinal bleeding. Use safe lifting methods. Don t lift anything heavier than 15 pounds until all of the pain is gone. Follow-up care Follow up with your healthcare provider, or as advised. You may need physical therapy or additional tests. If X-rays were taken, a radiologist will look at them. You will be told of any new findings that may affect your care. When to seek medical advice Call your healthcare provider right away if any of these occur: Pain gets worse even after taking prescribed medicine Weakness or numbness in 1 or both legs or hips Numbness in your groin or genital area You can t control your bowel or bladder Fever Redness or swelling over your back or spine [id number] [employer]. [address] [place] [address]. All rights reserved. This information is not intended as a substitute for professional medical care. Always follow your healthcare professional's instructions. Additional Information VACCINATE! IT SAVES LIVES! Members of the community who have not yet received the COVID-19 vaccine and would like to receive it can visit one of [facility] vaccine clinics. There are many vaccine clinic locations within the [facility]. For locations and available times, please visit [email or web address]. It is important to note that some COVID mobile vaccine clinics are held outdoors and may be canceled in rainy or stormy conditions. To learn more about pediatric vaccinations (ages 5-11), we invite you to visit the [facility] webpage. [email or web address]-[email or web address]-Frequently-[email or web address] -Questions.html To learn more about the COVID-19 vaccine, we invite you to visit the [facility] website for a list of frequently asked questions. [email or web address] [email or web address] [facility] [employer] Patient Portal Access Instructions: Stay connected with your healthcare team and access your personal medical information anytime with the [facility] [employer] Patient Portal. If you would like a full copy of your medical records please contact the [facility] Medical Records Department Monday through Monday between 8a.m. and 4:30p.m. Please follow the directions below to access the portal: 1.Access the email account you provided upon registration to the [facility].2.Look for an invitation email from [facility].3.Open the email and access the invitation link: Accept Invitation to [facility].Fill in the required martinez to create your account. Sign into [email or web address] with your username and password that you created in the above steps to stay up to date. You can then view a summary of results, a summary of your visits, and the ability to download your summaries to your computer or send the information securely to a physician. Remember that your healthcare information is confidential, so carefully consider who you will allow to register on the [facility] [employer] Patient Portal for access to your information. You can also access the [facility] Patient Portal on the [employer]. Simply click on Health Records under Health Data and then click on the [facility] logo. HOW TO SAFELY DISPOSE OF PRESCRIPTION MEDICATIONS Please use one of the following methods to safely dispose of your unused medications. 1.Use a drug disposal kit: the drug disposal pouch allows you to safely discard your old and unused drugs. Ask your nurse to give you one when you are discharged.2.Visit a local take-back location: Many local pharmacies and police departments have programs that collect old and unwanted prescription drugs. Call your local pharmacy or go to http://[employer]/8C3Xw0t to find one close to you.3.Make use of household items: Use cat litter or old coffee grounds to dispose medications if other options are not available. Mix your drugs with these household products, seal them in an airtight container and throw it into the garbage. Call [facility]: [phone] to be sure your drugs can be disposed of in this way. Some medicines may require a different approach.4.Never flush your medications down the toilet. IF YOU HAVE BEEN PRESCRIBED AN OPIOIDS FOR PAIN If you have been prescribed an opioid (such as hydrocodone, oxycodone or morphine), it is critical to understand the possible side effects and risks of opioid pain medications. Even when taken as directed, opioids can have several side effects including: Tolerance, meaning you might need to take more of a medication for the same pain relief. Nausea, vomiting and/or constipation. Sleepiness, dizziness, dry mouth, confusion, depression or itching. Physical dependence, meaning you have withdrawal symptoms when a medication is stopped ? this can develop within a few days. KNOW YOUR RESPONSIBILITIES It is important to know exactly how much and how often to take the opioid pain medications you are prescribed. Never take opioids in higher amounts or more often than prescribed. Do not combine opioids with alcohol or other drugs that cause drowsiness, such as benzodiazepines, also known as benzos, including diazepam and alprazolam, muscle relaxants or sleep aids. Never sell or share prescription opioids. This is illegal. Store opioids in a secure place and out of reach of others (including children, family, friends and visitors). The last page(s) of this document has been signed and retained as a CHART COPY Signatures Patient Education Materials Possible Causes of Low Back or Leg Pain Sciatica Medication Leaflets acetaminophen and oxycodone My discharge plan and instructions have been reviewed and explained to me and I,INDIA FERRARI understand my current condition and have read and understand these discharge instructions. I have received a written copy of the plan/instructions. If I have questions, I am aware that I should contact my doctor. Patient/Mortgage Loan Processing Clerk Signature: _ Date/Time: Relationship to Patient: Witness Name/Signature: Date/Time: [facility] Clinical Note 03-16-2022 Note Date & Type Note Facility 03-16-2022 Note ORIGINAL EXAMINATION: 2 XRAY VIEWS OF THE LEFT LOWER EXTREMITY03/16/2022 7:53 AM COMPARISON: None HISTORY: ORDERING SYSTEM PROVIDED HISTORY: Reason for Exam: Pain. No known injury. FINDINGS: There is osseous demineralization. There is no acute fracture dislocation. There are mild degenerative changes of the hip joint. There are pelvic surgical clips. IMPRESSION: No acute osseous abnormality identified. Preliminary Report was Dictated by a Resident RECOMMENDATIONS: Unavailable Interpreted by: Mark Peters MD Preliminary Report By: Domo Salazar Electronically signed By Mark Peters MD Dictated Date: 03/16/2022 7:58:49 AM Prelim Date: 03/16/2022 8:03:34 AM Sign Date: 03/16/2022 8:19:06 AM Ordering Provider: ANA GEORGE [facility] Clinical Note 03-16-2022 Note Date & Type Note Facility 03-16-2022 Note ORIGINAL EXAMINATION: CT OF THE LUMBAR SPINE WITHOUT CONTRAST 03/16/2022 TECHNIQUE: CT of the lumbar spine was performed without the administration of intravenous contrast. Multiplanar reformatted images are provided for review. Adjustment of mA and/or kV according to patient size was utilized. Automated exposure control, iterative reconstruction, and/or weight based adjustment of the mA/kV was utilized to reduce the radiation dose to as low as reasonably achievable. COMPARISON: None HISTORY: ORDERING SYSTEM PROVIDED HISTORY: Reason for Exam: Left lower extremity pain FINDINGS: BONES/ALIGNMENT: Alignment is anatomic. Vertebral body heights are maintained. No acute fracture. DEGENERATIVE CHANGES: Multilevel degenerative changes present with osteophyte formation and intervertebral disc height loss. Mild diffuse disc bulge noted at T12-L1. Diffuse disc bulge and bilateral facet hypertrophy at L3-L4 results in mild bilateral neural foraminal narrowing. Diffuse disc bulge and right facet hypertrophy at L4-L5 results in at least moderate right neural foraminal narrowing. No significant central canal stenosis. SOFT TISSUES/RETROPERITONEUM: Unremarkable. IMPRESSION: No acute osseous abnormality. Multilevel degenerative changes as above. Preliminary Report was Dictated by a Resident RECOMMENDATIONS: Unavailable Interpreted by: Mark Peters MD Preliminary Report By: Domo Salazar Electronically signed By Mark Peters MD Dictated Date: 03/16/2022 7:48:40 AM Prelim Date: 03/16/2022 7:58:36 AM Sign Date: 03/16/2022 8:14:04 AM Ordering Provider: [facility] Clinical Note 03-16-2022 Note Date & Type Note Facility 03-16-2022 Note ORIGINAL EXAMINATION: 2 XRAY VIEWS OF THE LEFT LOWER EXTREMITY03/16/2022 7:53 AM COMPARISON: None HISTORY: ORDERING SYSTEM PROVIDED HISTORY: Reason for Exam: Pain. No known injury. FINDINGS: There is osseous demineralization. There is no acute fracture dislocation. There are mild degenerative changes of the hip joint. There are pelvic surgical clips. IMPRESSION: No acute osseous abnormality identified. Preliminary Report was Dictated by a Resident RECOMMENDATIONS: Unavailable Interpreted by: Mark Peters MD Preliminary Report By: Domo Salazar Electronically signed By Mark Peters MD Dictated Date: 03/16/2022 7:58:49 AM Prelim Date: 03/16/2022 8:03:34 AM Sign Date: 03/16/2022 8:19:06 AM Ordering Provider: [facility] Clinical Note 03-16-2022 Note Date & Type Note Facility 03-16-2022 Note ORIGINAL EXAMINATION: CT OF THE LUMBAR SPINE WITHOUT CONTRAST 03/16/2022 TECHNIQUE: CT of the lumbar spine was performed without the administration of intravenous contrast. Multiplanar reformatted images are provided for review. Adjustment of mA and/or kV according to patient size was utilized. Automated exposure control, iterative reconstruction, and/or weight based adjustment of the mA/kV was utilized to reduce the radiation dose to as low as reasonably achievable. COMPARISON: None HISTORY: ORDERING SYSTEM PROVIDED HISTORY: Reason for Exam: Left lower extremity pain FINDINGS: BONES/ALIGNMENT: Alignment is anatomic. Vertebral body heights are maintained. No acute fracture. DEGENERATIVE CHANGES: Multilevel degenerative changes present with osteophyte formation and intervertebral disc height loss. Mild diffuse disc bulge noted at T12-L1. Diffuse disc bulge and bilateral facet hypertrophy at L3-L4 results in mild bilateral neural foraminal narrowing. Diffuse disc bulge and right facet hypertrophy at L4-L5 results in at least moderate right neural foraminal narrowing. No significant central canal stenosis. SOFT TISSUES/RETROPERITONEUM: Unremarkable. IMPRESSION: No acute osseous abnormality. Multilevel degenerative changes as above. Preliminary Report was Dictated by a Resident RECOMMENDATIONS: Unavailable Interpreted by: Mark Peters MD Preliminary Report By: Domo Salazar Electronically signed By Mark Peters MD Dictated Date: 03/16/2022 7:48:40 AM Prelim Date: 03/16/2022 7:58:36 AM Sign Date: 03/16/2022 8:14:04 AM Ordering Provider: ANA GEORGE [facility] Discharge instructions 03-09-2022 Note Date & Type Note Facility 03-09-2022 Hospital Discharg e instructions Patient Education 03/09/2022 05:01:27 Smoking Cessation How to Quit Smoking Smoking is a hard habit to break. About half of all people who have ever smoked have been able to quit. Most people who still smoke want to quit. Here are some of the best ways to stop smoking. Keep in mind the health benefits of quitting The health benefits of quitting start right away. They keep improving the longer you go without smoking. Knowing this can help inspire you to stay on track. These benefits occur at any age. If you are 17 or 70, quitting is a good choice. Some of the health benefits after your last cigarette include: 20 minutes: Your blood pressure and pulse return to normal. 8 hours: Your oxygen levels return to normal. 2 days: Your ability to smell and taste start to improve as damaged nerves regrow. 2 to 3 weeks: Your circulation and lung function improve. 1 to 9 months: Your coughing, congestion, and shortness of breath decrease. Your tiredness decreases. 1 year: Your risk of heart attack decreases by half. 5 years: Your risk of lung cancer decreases by half. Your risk of stroke becomes the same as a nonsmoker s. Go cold turkey Most former smokers quit cold turkey. This means stopping all at once. Trying to cut back slowly often doesn't work as well. This may be because it continues the habit of smoking. Also, you may inhale more smoke while smoking fewer cigarettes. This leads to the same amount of nicotine in your body. Get support Support programs can be a big help, especially for heavy smokers. These groups offer lectures, ways to change behavior, and peer support. Here are some ways to find a support program: Free national quitline 016-ETBR-TWZ (286-332-6685) [facility] quit-smoking programs [employer] 654-891-4567 [employer] 446-406-5341 Support at home is important too. Family and friends can offer praise and reassurance. If the smoker in your life finds it hard to quit, encourage them to keep trying. Try uvux-vei-wwapsul medicine Nicotine replacement therapy may make it easier to quit. Some aids are available without a prescription. These include a nicotine patch, gum, and lozenges. But it is best to use these under the care of your healthcare provider. The skin patch gives a steady supply of nicotine. Nicotine gum and lozenges give short-time doses of low levels of nicotine. Both methods reduce the craving for cigarettes. If you have nausea, vomiting, dizziness, weakness, or a fast heartbeat, stop using these products. See your healthcare provider. Ask about prescription medicine After reviewing your smoking patterns and past attempts to quit, your doctor may offer a prescription medicine such as bupropion, varenicline, a nicotine inhaler, or nasal spray. Each has advantages and side effects. Your doctor can review these with you. Keep trying Most smokers make many attempts at quitting before they are successful. It s important not to give up. For more information For more on how to quit smoking, try these online resources: Go to Smokefree.gov. Read Clearing the Air from the National [employer] [place] at smokefree.gov/sites/default/file s/pdf/cfmvmwdw-vbq-qle-accessibl e.pdf. 5147-2248 [employer]. [address] [place] [address], [place] [address]. All rights reserved. This information is not intended as a substitute for professional medical care. Always follow your healthcare professional's instructions. 03/09/2022 05:01:18 Sciatica Sciatica Sciatica is a condition that causes pain in the lower back that spreads down into the buttock, hip, and leg. Sometimes the leg pain can happen without any back pain. Sciatica happens when a spinal nerve is irritated or has pressure put on it as comes out of the spinal canal in the lower back. This most often happens when a bulge or rupture of a nearby spinal disk presses on the nerve. Sciatica can also be caused by a narrowing of the spinal canal (spinal stenosis) or spasm of the muscle in the buttocks that the sciatic nerve passes through (pyriform muscle). Sciatica is also called lumbar radiculopathy. Sciatica may begin after a sudden twisting or bending force, such as in a car accident. Or it can happen after a simple awkward movement. In either case, muscle spasm often also happens. Muscle spasm makes the pain worse. A healthcare provider makes a diagnosis of sciatica from your symptoms and a physical exam. Unless you had an injury from a car accident or fall, you usually won t have X-rays taken at this time. This is because the nerves and disks in your back can t be seen on an X-ray. If the provider sees signs of a compressed nerve, you will need to schedule an MRI scan as an outpatient. Signs of a compressed nerve include loss of strength in a leg. Most sciatica gets better with medicine, exercise, and physical therapy. If your symptoms continue after at least 3 months of medical treatment, you may need surgery or injections to your lower back. Home care Follow these tips when caring for yourself at home: You may need to stay in bed the first few days. But as soon as possible, begin sitting up or walking. This will help you avoid problems that come from staying in bed for long periods. When in bed, try to find a position that is comfortable. A firm mattress is best. Try lying flat on your back with pillows under your knees. You can also try lying on your side with your knees bent up toward your chest and a pillow between your knees. Avoid sitting for long periods. This puts more stress on your lower back than standing or walking. Use heat from a hot shower, hot bath, or heating pad to help ease pain. Massage can also help. You can also try using an ice pack. You can make your own ice pack by putting ice cubes in a plastic bag. Wrap the bag in a thin towel. Try both heat and cold to see which works best. Use the method that feels best for 20 minutes several times a day. You may use acetaminophen or ibuprofen to ease pain, unless another pain medicine was prescribed. Note: If you have chronic liver or kidney disease, talk with your healthcare provider before taking these medicines. Also talk with your provider if you ve had a stomach ulcer or gastrointestinal bleeding. Use safe lifting methods. Don t lift anything heavier than 15 pounds until all of the pain is gone. Follow-up care Follow up with your healthcare provider, or as advised. You may need physical therapy or additional tests. If X-rays were taken, a radiologist will look at them. You will be told of any new findings that may affect your care. When to seek medical advice Call your healthcare provider right away if any of these occur: Pain gets worse even after taking prescribed medicine Weakness or numbness in 1 or both legs or hips Numbness in your groin or genital area You can t control your bowel or bladder Fever Redness or swelling over your back or spine [id number] [employer]. [address] [place] [address]. All rights reserved. This information is not intended as a substitute for professional medical care. Always follow your healthcare professional's instructions. Follow Up Care 03/09/2022 04:34:36 With:Call Physician Referral Address:Unknown When:2-4 days [facility] Clinical Note 03-09-2022 Note Date & Type Note Facility 03-09-2022 Note Discharge Instructions Thank you for allowing [facility] to assist you with your healthcare needs. The following is important discharge information regarding your hospital visit. Diagnosis from Today's Visit Sciatica Hip pain-swelling What to Do Next Instructions from Your Care Team Discharge Return to Work, School, or Sports (Return to Work, School, or Sports) - Ordered -- 03/09/22, 03/10/22, 03/10/22, May return to: work, 03/09/22 5:01:00 EDT Post Acute Orders No qualifying data available. You Need to Schedule the Following Appointments Follow Up with Call Physician Referral When Within 2-4 days Allergies NKA Medications Please ask your primary doctor or pharmacist before taking any other medication not listed, including over the counter drugs, herbal medications, vitamins and or supplements as they may interact with your home medications. What How Much When Why Instructions Last Dose New cyclobenzaprine (cyclobenzaprine 10 mg oral tablet) 1 tab(s) by mouth Three (3) times a day Sciatica Duration: 7 Days Printed Prescription New etodolac (etodolac 400 mg oral tablet) 1 tab(s) by mouth Two (2) times a day Sciatica Duration: 7 Days Printed Prescription Unchanged acetaminophen-hydrocodone ([place] 325- 5 mg oral tablet) 1 tab(s) by mouth Every 6 hours as needed for as needed for pain Flank pain Duration: 3 Days Unchanged acetaminophen-oxyCODONE (Percocet 5 mg-325 mg oral tablet) 1 tab(s) by mouth Every 4 hours as needed for for pain Back pain Duration: 3 Days Unchanged diazePAM (Valium 5 mg oral tablet) 1 tab(s) by mouth Three (3) times a day as needed for Muscle spasm Back pain Duration: 5 Days Unchanged DULoxetine (DULoxetine 60 mg oral delayed release capsule) Unchanged fluconazole (fluconazole 150 mg oral tablet) Unchanged gabapentin (gabapentin 600 mg oral tablet) Unchanged glyBURIDE (glyBURIDE 5 mg oral tablet) Unchanged meloxicam (meloxicam 7.5 mg oral tablet) Unchanged predniSONE (predniSONE 20 mg oral tablet) 1 tab(s) by mouth Every day Flank pain Duration: 5 Days Unchanged rOPINIRole (rOPINIRole 0.5 mg oral tablet) Please take this list to your next doctor s visit. Bring all medications you take, including over the counter medications, herbals and other supplements with you to your doctor s visit. Patients and families are reminded to discard old lists and to update any records with all medication providers or retail pharmacies. Education Materials How to Quit Smoking Smoking is a hard habit to break. About half of all people who have ever smoked have been able to quit. Most people who still smoke want to quit. Here are some of the best ways to stop smoking. Keep in mind the health benefits of quitting The health benefits of quitting start right away. They keep improving the longer you go without smoking. Knowing this can help inspire you to stay on track. These benefits occur at any age. If you are 17 or 70, quitting is a good choice. Some of the health benefits after your last cigarette include: 20 minutes: Your blood pressure and pulse return to normal. 8 hours: Your oxygen levels return to normal. 2 days: Your ability to smell and taste start to improve as damaged nerves regrow. 2 to 3 weeks: Your circulation and lung function improve. 1 to 9 months: Your coughing, congestion, and shortness of breath decrease. Your tiredness decreases. 1 year: Your risk of heart attack decreases by half. 5 years: Your risk of lung cancer decreases by half. Your risk of stroke becomes the same as a nonsmoker s. Go cold turkey Most former smokers quit cold turkey. This means stopping all at once. Trying to cut back slowly often doesn't work as well. This may be because it continues the habit of smoking. Also, you may inhale more smoke while smoking fewer cigarettes. This leads to the same amount of nicotine in your body. Get support Support programs can be a big help, especially for heavy smokers. These groups offer lectures, ways to change behavior, and peer support. Here are some ways to find a support program: Free national quitline 221-QSLU-FNQ (854-413-3566) [facility] quit-smoking programs [employer] 721-135-5551 [employer] 503-476-6528 Support at home is important too. Family and friends can offer praise and reassurance. If the smoker in your life finds it hard to quit, encourage them to keep trying. Try fivq-lku-kaqbltz medicine Nicotine replacement therapy may make it easier to quit. Some aids are available without a prescription. These include a nicotine patch, gum, and lozenges. But it is best to use these under the care of your healthcare provider. The skin patch gives a steady supply of nicotine. Nicotine gum and lozenges give short-time doses of low levels of nicotine. Both methods reduce the craving for cigarettes. If you have nausea, vomiting, dizziness, weakness, or a fast heartbeat, stop using these products. See your healthcare provider. Ask about prescription medicine After reviewing your smoking patterns and past attempts to quit, your doctor may offer a prescription medicine such as bupropion, varenicline, a nicotine inhaler, or nasal spray. Each has advantages and side effects. Your doctor can review these with you. Keep trying Most smokers make many attempts at quitting before they are successful. It s important not to give up. For more information For more on how to quit smoking, try these online resources: Go to Smokefree.gov. Read Clearing the Air from the National [employer] [place] at smokefree.gov/sites/default/files/pdf/ rqbqrcnb-uex-mzs-accessible.pdf. 1075-7841 [employer]. [address] [place] [address]. All rights reserved. This information is not intended as a substitute for professional medical care. Always follow your healthcare professional's instructions. Sciatica Sciatica is a condition that causes pain in the lower back that spreads down into the buttock, hip, and leg. Sometimes the leg pain can happen without any back pain. Sciatica happens when a spinal nerve is irritated or has pressure put on it as comes out of the spinal canal in the lower back. This most often happens when a bulge or rupture of a nearby spinal disk presses on the nerve. Sciatica can also be caused by a narrowing of the spinal canal (spinal stenosis) or spasm of the muscle in the buttocks that the sciatic nerve passes through (pyriform muscle). Sciatica is also called lumbar radiculopathy. Sciatica may begin after a sudden twisting or bending force, such as in a car accident. Or it can happen after a simple awkward movement. In either case, muscle spasm often also happens. Muscle spasm makes the pain worse. A healthcare provider makes a diagnosis of sciatica from your symptoms and a physical exam. Unless you had an injury from a car accident or fall, you usually won t have X-rays taken at this time. This is because the nerves and disks in your back can t be seen on an X-ray. If the provider sees signs of a compressed nerve, you will need to schedule an MRI scan as an outpatient. Signs of a compressed nerve include loss of strength in a leg. Most sciatica gets better with medicine, exercise, and physical therapy. If your symptoms continue after at least 3 months of medical treatment, you may need surgery or injections to your lower back. Home care Follow these tips when caring for yourself at home: You may need to stay in bed the first few days. But as soon as possible, begin sitting up or walking. This will help you avoid problems that come from staying in bed for long periods. When in bed, try to find a position that is comfortable. A firm mattress is best. Try lying flat on your back with pillows under your knees. You can also try lying on your side with your knees bent up toward your chest and a pillow between your knees. Avoid sitting for long periods. This puts more stress on your lower back than standing or walking. Use heat from a hot shower, hot bath, or heating pad to help ease pain. Massage can also help. You can also try using an ice pack. You can make your own ice pack by putting ice cubes in a plastic bag. Wrap the bag in a thin towel. Try both heat and cold to see which works best. Use the method that feels best for 20 minutes several times a day. You may use acetaminophen or ibuprofen to ease pain, unless another pain medicine was prescribed. Note: If you have chronic liver or kidney disease, talk with your healthcare provider before taking these medicines. Also talk with your provider if you ve had a stomach ulcer or gastrointestinal bleeding. Use safe lifting methods. Don t lift anything heavier than 15 pounds until all of the pain is gone. Follow-up care Follow up with your healthcare provider, or as advised. You may need physical therapy or additional tests. If X-rays were taken, a radiologist will look at them. You will be told of any new findings that may affect your care. When to seek medical advice Call your healthcare provider right away if any of these occur: Pain gets worse even after taking prescribed medicine Weakness or numbness in 1 or both legs or hips Numbness in your groin or genital area You can t control your bowel or bladder Fever Redness or swelling over your back or spine [phone] [employer]. [address] [place] [address], [place] [address]. All rights reserved. This information is not intended as a substitute for professional medical care. Always follow your healthcare professional's instructions. Additional Information VACCINATE! IT SAVES LIVES! Members of the community who have not yet received the COVID-19 vaccine and would like to receive it can visit one of [facility] vaccine clinics. There are many vaccine clinic locations within the [facility]. For locations and available times, please visit [email or web address]. It is important to note that some COVID mobile vaccine clinics are held outdoors and may be canceled in rainy or stormy conditions. To learn more about pediatric vaccinations (ages 5-11), we invite you to visit the [facility] webpage. https://www.[facility].org/pages/2 400-Skwrg-Qivmyxsxgep-Frequently-Asked -Questions.html To learn more about the COVID-19 vaccine, we invite you to visit the [facility] website for a list of frequently asked questions. [email or web address] [email or web address]-[email or web address]-Xkjbrrgzmj_Cg ked-Questions.pdf [facility] [employer] Patient Portal Access Instructions: Stay connected with your healthcare team and access your personal medical information anytime with the [facility] Patient Portal. If you would like a full copy of your medical records please contact the [facility] Medical Records Department Monday through Monday between 8a.m. and 4:30p.m. Please follow the directions below to access the portal: 1.Access the email account you provided upon registration to the hospital.2.Look for an invitation email from [facility].3.Open the email and access the invitation link: Accept Invitation to [facility]4.Fill in the required martinez to create your account. Sign into [email or web address] with your username and password that you created in the above steps to stay up to date. You can then view a summary of results, a summary of your visits, and the ability to download your summaries to your computer or send the information securely to a physician. Remember that your healthcare information is confidential, so carefully consider who you will allow to register on the [facility] Patient Portal for access to your information. You can also access the [facility] Patient Portal on the [employer] myla. Simply click on Health Records under Health Data and then click on the [facility] logo. HOW TO SAFELY DISPOSE OF PRESCRIPTION MEDICATIONS Please use one of the following methods to safely dispose of your unused medications. 1.Use a drug disposal kit: the drug disposal pouch allows you to safely discard your old and unused drugs. Ask your nurse to give you one when you are discharged.2.Visit a local take-back location: Many local pharmacies and police departments have programs that collect old and unwanted prescription drugs. Call your local pharmacy or go to http://[employer]/9U6Ur8n to find one close to you.3.Make use of household items: Use cat litter or old coffee grounds to dispose medications if other options are not available. Mix your drugs with these household products, seal them in an airtight container and throw it into the garbage. Call [facility]: [phone] to be sure your drugs can be disposed of in this way. Some medicines may require a different approach.4.Never flush your medications down the toilet. IF YOU HAVE BEEN PRESCRIBED AN OPIOIDS FOR PAIN If you have been prescribed an opioid (such as hydrocodone, oxycodone or morphine), it is critical to understand the possible side effects and risks of opioid pain medications. Even when taken as directed, opioids can have several side effects including: Tolerance, meaning you might need to take more of a medication for the same pain relief. Nausea, vomiting and/or constipation. Sleepiness, dizziness, dry mouth, confusion, depression or itching. Physical dependence, meaning you have withdrawal symptoms when a medication is stopped ? this can develop within a few days. KNOW YOUR RESPONSIBILITIES It is important to know exactly how much and how often to take the opioid pain medications you are prescribed. Never take opioids in higher amounts or more often than prescribed. Do not combine opioids with alcohol or other drugs that cause drowsiness, such as benzodiazepines, also known as benzos, including diazepam and alprazolam, muscle relaxants or sleep aids. Never sell or share prescription opioids. This is illegal. Store opioids in a secure place and out of reach of others (including children, family, friends and visitors). The last page(s) of this document has been signed and retained as a CHART COPY Signatures Patient Education Materials Smoking Cessation Sciatica Medication Leaflets My discharge plan and instructions have been reviewed and explained to me and I,INDIA FERRARI understand my current condition and have read and understand these discharge instructions. I have received a written copy of the plan/instructions. If I have questions, I am aware that I should contact my doctor. Patient/Mortgage Loan Processing Clerk Signature: _ Date/Time: Relationship to Patient: Witness Name/Signature: Date/Time: [facility] Evaluation + Plan note Note Date & Type Note Facility Evaluation + Plan note No data available for this section [facility] Summary Purpose Family History No Family History Records FoundNo Family History Records Found Advance Directives No Advanced Directives Records FoundNo Advanced Directives Records Found Additional Source Comments INFORMATION SOURCE (unrecogn ized section and content) DATE CREATED AUTHOR AUTHOR'S ORGANIZ ATION 04/09/2022 [facility] ([place]) Care Team (unrecognized sect ion and content) Care Team Personnel Name: MICHELINE RODRÍGUEZ DO Member Role: Primary Care Physician Address: Address: [address] [place] [address] Care Team Personnel Name: MICHELINE RODRÍGUEZ DO Member Role: Primary Care Physician Address: Address: [address] [place] [address] FOR RECORDS PERTAINING TO PATIENTS WHO ARE OR HAVE BEEN ENROLLED IN A CHEMICAL DEPENDENCY/SUBSTANCEABUSE PROGRAM, SOME INFORMATION MAY BE OMITTED. This clinical summary was aggregated from multiple sources. Caution should be exercised in using it in the provision of clinical care. This summary normalizes information from multiple sources, and as a consequence, information in this document may materially change the coding, format and clinical context of patient data. In addition, data may be omitted in some cases. CLINICAL DECISIONS SHOULD BE BASED ON THE PRIMARY CLINICAL RECORDS. [facility] [employer] provides no warranty or guarantee of the accuracy or completeness of information in this document.
[2023-07-19 17:46] LABS: Absolute Lymphocyte Count 3.05 X10^3/uL (0.83-4.51); Absolute Neutrophil Count 4.8 X10^3/uL (2.0-7.7); Basophil% 1.1 % (0-1); Eosinophils% 1.1 % (0-5); Hematocrit 45.1 % (37-47); Lymphocyte # 3.05 X10^3/ul (0.83-4.51); Lymphocyte % 34.9 % (19-41); Mean Corp Hgb Conc 33.3 g/dL (32-36); Mean Corpuscular Hgb 29.8 pg (27.0-32.0); Mean Corpuscular Volume 89.7 fL (81-99); Mean Platelet Vol. 10.8 fl (6.2-12.0); Monocyte# 0.62 X10^3/uL; Monocyte% 7.1 % (0-10); NRBC Flagged by Analyzer 0 % (0-5); Neutrophil # 4.84 X10^3/uL (2.7-7.7); Neutrophil % 55.5 % (47-70); Platelet Count 277 K/mm3 (150-450); RBC Distribution Width CV 12.7 % (11.6-14.6); RBC Distribution Width SD 41.8 fl (35.1-43.9); Red Blood Count 5.03 M/mm3 (4.2-5.4); White Blood Count 8.7 K/mm3 (4.4-11.0)
[2023-07-19 18:06] LABS: Vitamin B12 398 pg/mL (211-911)
[2023-07-19 18:18] LABS: Erythrocyte Sedimentation Rate 36 mm/hr (0-30)
[2023-07-19 18:24] LABS: AST(SGOT) 21 U/L (15-37); Alanine Aminotransfer ALT/SGPT 29 U/L (13-56); Albumin, Serum 4.1 g/dL (3.2-5.0); Alkaline Phosphatase 113 U/L (45-117); Anion Gap 7 (5-15); BUN 13 mg/dL (7-18); BUN/Creat Ratio 14.4 RATIO (10-20); CRP 5.88 mg/L (0.0-3.0); Calcium,Total 9.2 mg/dL (8.5-10.1); Chloride 107 mmol/L (98-107); Cholesterol 259 mg/dL (200); EST Glomerular Filtration Rate 67 mL/min (>60); Est Glom Filt Rate - Afr Amer 81 mL/min (>60); Ferritin 97 ng/mL (8-252); Globulin 4.2 g/dL (2.2-4.2); Glucose 239 mg/dL (74-106); High Density Lipoprotein 56 mg/dL; Magnesium 2.1 mg/dL (1.6-2.6); Protein, Total 8.3 g/dL (6.4-8.2); Sodium Level 135 mmol/L (136-145); Thyroid Stim Hormone (TSH) 2.26 uIU/mL (0.358-3.74); Triglycerides 251 mg/dL; Very Low Density Lipoprotein 50 mg/dL (5-40)
[2023-07-21 11:09] LABS: ANTINUCLEAR ANTIBODIES DIRECT Negative (Negative)
== END | disposition home or self-care (01) ==
LOC: MFPLAB 16:54
PROVIDERS: PCP Family Medicine; Visit Provider Family Medicine
DX: M79.10 Myalgia, unspecified site (principal); E11.65 Type 2 diabetes mellitus with hyperglycemia; E55.9 Vitamin D deficiency, unspecified; E78.5 Hyperlipidemia, unspecified
CPT/HCPCS: 36415; 80053; 80061; 82306; 82607; 82728; 83735; 84443; 85025; 85652; 86038; 86140

== ENCOUNTER 2024-12-08 14:48 | Inpatient (IN) | payer BC, SELFPAY ==
[2024-12-08] VITALS (7 sets, daily range): BP systolic 110–152; BP diastolic 64–78; PULSE 89–115; RESP 16–33; TEMP 37.4–38; O2SAT 93–100; BMI 24.8; BMI 24.7
--- NOTE | 2024-12-08 15:28 | RAD_ITS ---
PROCEDURE: CHEST PA AND LATERAL 12/08/2024 REASON FOR EXAM: COUGH AND FEVER TECHNIQUE: Frontal and lateral views of the chest. COMPARISON: Chest radiograph on 10/29/2019 FINDINGS: Heart: The heart size is normal. Mediastinum: The mediastinal contour is unremarkable. Lungs: There is an ovoid opacity in the peripheral aspect of the left upper lobe measuring 13.9 cm longitudinally. Bones: Degenerative changes are identified within the thoracic spine. Surgical clips in the right upper quadrant of the abdomen. RAD/Chest PA and Lateral IMPRESSION: Focal ovoid opacity in the peripheral left upper lobe, likely representing infe ction in the correct clinical setting. Recommend repeat radiographs in 6-8 weeks following completion of appropriate therapy. Reading Location: [facility]
--- NOTE | 2024-12-08 15:29 | EX.ED.DYSGE1 ---
HPI History of Present Illness Chief Complaint: General Illness Informant: patient and family Onset/Context/Timing Onset: Days Context: Gradual Onset Timing: Continuous Current Severity: Mild Maximum Severity: Moderate Narrative Narrative: 64-year-old female history of diabetes and prior appendectomy. States that she was feeling well until Monday she started nausea vomiting body aches. Diarrhea. Denies any dysuria. She is also has a cough of clear sputum. Denies any abdominal or chest pain. Son is with her. States she is too weak to even walk. Prior similar symptoms: No Recent Illness/Hospitalization: No [facility] Medical History Anxiety and depression Diabetes mellitus Home Medications ?Medication ?Instructions ?Recorded ?Last Taken ?Type glipizide 5 mg tablet 5 mg PO BIDAC #60 tabs 10/30/19 Unknown Rx aripiprazole 10 mg tablet 10 mg PO DAILY 12/08/24 Unknown History duloxetine 60 mg capsule,delayed 120 mg PO DAILY 12/08/24 Unknown History release glyburide 5 mg tablet 10 mg PO DAILY 12/08/24 Unknown History insulin glargine 100 unit/mL (3 10 unit subcut DAILY 12/08/24 Unknown History mL) subcutaneous pen (Lantus Solostar U-100 Insulin) meloxicam 15 mg tablet 15 mg PO DAILY 12/08/24 Unknown History pen needle, diabetic 31 gauge x 12/08/24 Unknown History pioglitazone 30 mg tablet 30 mg PO DAILY 12/08/24 Unknown History Allergy/AdvReac Type Severity Reaction Status Date / Time No Known Allergies Allergy Verified 12/08/24 14:48 Family History Mother Heart disease Sister Lupus Sister Autoimmune disorder Surgical History History of appendectomy History of knee surgery (~2020) Social History Smoking Status: Current every day smoker tobacco type: cigarettes alcohol intake: never substance use type: does not use ROS ROS ED ROS Narrative Fever. Chills. Cough. Clear sputum. Constitutional Constitutional ED: Reports chills and fever(s) Eyes Eyes: Denies blurry vision ENT ENT ED: Denies ear pain Cardiovascular Cardiovascular: Denies chest pain Respiratory/Chest Respiratory/Chest: Reports cough and sputum; Denies dyspnea or dyspnea on exertion Gastrointestinal Gastrointestinal: Reports diarrhea; Denies abdominal pain, nausea or vomiting Genitourinary Genitourinary ED: Denies dysuria or hematuria Musculoskeletal Musculoskeletal: Denies arthralgias or back pain Integumentary Denies abscess Neurologic Neurologic: Denies headache(s) Psychiatric Psychiatric: Denies anxiety Endocrine Endocrinology: Denies cold intolerance Hematologic/Lymphatic Hematologic/Lymphatic: Reports none Allergic/Immunologic Allergic/Immunologic ED: Denies mouth swelling, tongue swelling or urticaria EXAM Physical Exam Narrative Exam Narrative: 64-year-old female sitting upright in bed. Vital signs show temperature 100.4 orally. Pulse 115 Pulse ox 100% on room air no hypoxia. No distress. Family at bedside. H EENT exam pupils round reactive light. Mild dry mucous membranes. Posterior pharynx unremarkable. No trouble swallowing or breathing. TMs unremarkable bilaterally. Neck no meningismus. No lymphadenopathy. Lungs clear to auscultation bilaterally. Heart tachycardic 115 no murmur. Chest wall ribs nontender. Abdomen soft nontender. No peritoneal signs. Moving all 4 extremities. Nontender no edema. Normal strength. Back nontender. Skin no rashes. Neurologically she is awake alert. Answering questions following commands. Const Vital Signs: 12/08/24 14:48 12/08/24 16:04 12/08/24 16:05 Temperature 100.4 F H 100.2 F H Temperature Source Oral Temporal Pulse Rate 115 H 108 H Respiratory Rate 16 33 H Respiratory Effort Normal Respiratory Pattern Normal Blood Pressure 140/78 H 152/77 H Blood Pressure Mean 98 102 Pulse Ox 100 96 Oxygen Delivery Method Room Air Room Air 12/08/24 16:48 12/08/24 16:48 12/08/24 16:57 Temperature 100.3 F H 100.3 F H 100.3 F H Temperature Source Oral Oral Pulse Rate 105 H 102 H 98 Respiratory Rate 29 H 28 H 25 H Respiratory Effort Respiratory Pattern Blood Pressure 134/70 H 134/70 H 134/70 H Blood Pressure Mean 91 91 91 Pulse Ox 94 94 94 Oxygen Delivery Method Room Air Room Air 12/08/24 18:00 12/08/24 18:00 Temperature 99.3 F H Temperature Source Oral Pulse Rate 89 91 Respiratory Rate 25 H 26 H Respiratory Effort Respiratory Pattern Blood Pressure 125/64 H 125/64 H Blood Pressure Mean 84 84 Pulse Ox 95 95 Oxygen Delivery Method Room Air Room Air Positive well nourished and well developed; Negative for cachectic, contractures or unkempt General Appearance ED: well developed and NAD; Negative for unkempt, cachectic, contractures, cyanotic, diaphoretic or pallor Nutritional Appearance: Negative for cachectic HEENT Reports TM's clear and dry mucous membranes Negative for trauma or tenderness Tympanic Membrane ED: Yes TM's clear Mouth ED: Yes dry mucous membranes Mouth: dry mucous membranes Eyes PERRL and EOMs intact bilaterally General Eye ED: Negative for pale conjunctiva or scleral icterus Neck no lymphadenopathy, supple and no JVD General: Negative for tenderness Chest Wall inspection of chest normal and palpation of chest normal Resp normal respiratory effort and clear to auscultation bilaterally Cardio regular rhythm, S1 normal heart sound, S2 normal heart sound and no murmurs; Negative for regular rate Rate: tachycardic GI normal to inspection, nondistended, normoactive bowel sounds, non-tender, non-distended and no masses Inspection: Negative for abdominal distention Auscultation: normoactive bowel sounds Palpation: soft; Negative for tender, guarding or rebound tenderness present Back/Spine no CVA tenderness General Back: Negative for CVA tenderness Cervical Spine: Negative for cervical spine tenderness Thoracic Spine / Upper Back: Negative for thoracic spinal tenderness or paraspinal muscle tenderness Lumbar Spine / Lower Back: Negative for lumbar spinal tenderness Extremity normal to inspection General Extremety ED: Negative for edema or tenderness General Extremity: Negative for edema Neuro oriented x3 and CN's II-XII intact bilaterally Sensorium / Orientation: alert; Negative for orientation impaired, lethargic or stuporous Motor Exam: general weakness Psych mental status grossly normal Appearance: Negative for unkempt Attitude: No agitated Mood & Affect: Negative for tearful Skin no rashes or lesions noted, no wounds and skin turgor normal General Skin Exam: elasticity normal; Negative for jaundice or pallor Lesions: No lesion noted Rashes: No rashes noted Trauma: Negative for abrasion Wounds: Negative for wounds noted MDM MDM MDM Narrative Medical decision making narrative: 64-year-old female fever 100.4 suspect bacterial infection versus virus. Clinically looks dehydrated be given IV fluids. Screening labs with a chest x-ray and COVID and flu. Also a UA. Repeat exam patient is doing well at 4:55 PM. Given pneumonia on chest x-ray she will be started on IV Rocephin and Zithromax. Due to the size of it I am going to get a CT of her chest with contrast. Blood cultures also being obtained prior to the antibiotics. Patient doing well at 6 PM. Hospitalist on page for admission. History & Record Review Discussion w/independent historian: Patient and Family Additional record(s) reviewed:: Prior inpatient record, Prior outpatient record, Prior ED visit and Prior labs Lab Data Attestation: I reviewed the patient's lab results. Lab results narrative: CBC shows a white count of 15.2. H&H 13.8 and 40. Platelets 168. Lactic acid was 1.3. Electrolytes showed a sodium of 127. Gap of 16. Normal BUN and creatinine. Glucose of 183. Urinalysis shows 250 occult blood. No nitrites. No white or red cells. No bacteria. Chest x-ray shows are large lateral left upper and suspected left lower lobe pneumonia. CT of the chest shows moderate to large shaped wedge-shaped pneumonia I do not see an empyema. Awaiting formal radiologist interpretation. Labs: Laboratory Results - last 24 hr 12/08/24 15:40 WBC 15.2 H RBC 4.70 Hgb 13.8 Hct 40.1 MCV 85.3 MCH 29.4 MCHC 34.4 RDW Std Deviation 39.4 RDW Coeff of Max 12.7 Plt Count 168 MPV 11.7 Immature Gran % (Auto) 1.500 H Neut % (Auto) 88.9 H Lymph % (Auto) 4.0 L [place] % (Auto) 4.6 Eos % (Auto) 0.3 Baso % (Auto) 0.7 Absolute Neuts (auto) 13.5 H Absolute Lymphs (auto) 0.61 L Nucleated RBC % 0 Sodium 127 L Potassium 3.8 Chloride 92 L Carbon Dioxide 19.5 L Anion Gap 16 H BUN 16 Creatinine 0.87 Estim Creat Clear Calc 65.90 Est GFR (MDRD) Non-Af 74 BUN/Creatinine Ratio 18.2 Glucose 183 H Lactic Acid 1.3 Calcium 9.9 Urine Color Yellow Urine Clarity Cloudy Urine pH 6.0 Ur Specific [place] 1.025 Urine Protein 500 H Urine Glucose (UA) 250 H Urine Ketones 5 H Urine Occult Blood 250 H Urine Nitrite Negative Urine Bilirubin Negative Urine Urobilinogen Normal Ur Leukocyte Esterase 25 H Urine RBC 0-5 SEEN Urine WBC 0-5 SEEN Ur Squamous Epith Cells 0-5 SEEN Urine Bacteria 0 SEEN Hyaline Casts 0-5 SEEN Urine Mucus 0 SEEN Radiography Chest X-Ray - ED: 2 View, Read by ED Physician, Heart, Mediastinum, Bony Structures, No Acute Disease, Chronic Changes and Left Infiltrate Diagnostic Testing: Clinical Impression(s) from Imaging Studies Chest X-Ray 12/08/24 15:28 IMPRESSION: Focal ovoid opacity in the peripheral left upper lobe, likely representing infection in the correct clinical setting. Recommend repeat radiographs in 6-8 weeks following completion of appropriate therapy. Reading Location: [id number] Chest x-ray, 2 views, AP and lateral, interpreted by myself shows a large left upper lobe lateral pneumonia. May involve the upper aspect of the left lower lobe also. Normal cardiac silhouette mediastinum. Discharge Plan Dx/Rx/DC Orders Clinical Impression: Pneumonia, Fever, Leukocytosis, History of diabetes mellitus Disposition Disposition: Acute Care Hospital [facility]
[2024-12-08] MEDS: Acetaminophen 500 MG Tablet 1000 MG PO (15:51)
[2024-12-08] MEDS: 0.9% Normal Saline (1000mL) 1,000 ML 1000 ML IV (15:51)
[2024-12-08 16:13] LABS: Bacteria 0 SEEN /hpf (None Seen); Mucous, Urine 0 SEEN /hpf (<or=2+)
[2024-12-08 16:30] LABS: Absolute Lymphocyte Count 0.61 X10^3/uL (0.83-4.51); Absolute Neutrophil Count 13.5 X10^3/uL (2.0-7.7); Basophil# 0.11 X10^3/uL; Basophil% 0.7 % (0-1); Eosinophil# 0.05 X10^3/uL; Eosinophils% 0.3 % (0-5); Hematocrit 40.1 % (37-47); Hemoglobin 13.8 g/dL (12.0-15.0); Lymphocyte # 0.61 X10^3/ul (0.83-4.51); Mean Corp Hgb Conc 34.4 g/dL (32-36); Mean Corpuscular Hgb 29.4 pg (27.0-32.0); Mean Corpuscular Volume 85.3 fL (81-99); Mean Platelet Vol. 11.7 fl (6.2-12.0); Monocyte% 4.6 % (0-10); NRBC Flagged by Analyzer 0 % (0-5); Neutrophil # 13.47 X10^3/uL (2.7-7.7); Neutrophil % 88.9 % (47-70); Platelet Count 168 K/mm3 (150-450); RBC Distribution Width CV 12.7 % (11.6-14.6); RBC Distribution Width SD 39.4 fl (35.1-43.9); White Blood Count 15.2 K/mm3 (4.4-11.0)
[2024-12-08 16:39] LABS: Color, Urine Yellow (Yellow); Glucose, Dipstick 250 mg/dl (Normal); Ketone-Dipstick 5 mg/dl (Negative); Leukocyte Esterase-Dipstick 25 /ul (Negative); Nitrite-Dipstick Negative (Negative); Occult Blood-Urine 250 /ul (Negative); Protein-Dipstick 500 mg/dl (Negative); Specific Gravity, Urine 1.025 (1.002-1.030); Urine Bilirubin Dipstick Negative (Negative); Urine Clarity Cloudy (Clear); Urine Urobilinogen Normal (Normal)
[2024-12-08 16:46] LABS: Lactic Acid 1.3 mmol/L (0.0-2.0)
[2024-12-08 16:48] LABS: Hyaline Cast 0-5 SEEN /lpf (0-5); Red Blood Cells-Urine 0-5 SEEN /hpf (0-5); Squamous Epithelial Cells - UA 0-5 SEEN /hpf (5-10); White Blood Cells 0-5 SEEN /hpf (0-5)
--- NOTE | 2024-12-08 16:53 | CT_ITS ---
PROCEDURE: CHEST WITH CONTRAST 12/08/2024 REASON FOR EXAM: LARGE LEFT LATERAL PNEUMONIA POSSIBLE EMPYEMA TECHNIQUE: Prone and supine chest CT with intravenous contrast, high resolution CT (HRCT) protocol. Coronal and Sagittal reconstruction series were provided. CONTRAST: 81 mL Isovue 370 One or more dose reduction techniques were used (e.g., Automated exposure control, adjustment of the mA and/or kV according to patient size, use of iterative reconstruction technique). RADIATION DOSE SUMMARY: CTDlvol: 10.0 mGy DLP: 366 mGycm COMPARISON: Same day chest radiograph FINDINGS: Lymph nodes: Prominent subcentimeter mediastinal and left hilar nodes. Heart and Vasculature: Normal heart size. Mild coronary calcification. Lungs and Airways: Trace nonobstructing debris in the trachea. There is triangular shaped consolidation with air bronchograms present throughout the lateral aspect of the left upper lobe. Pleura: No pleural effusion. Upper Abdomen: Status post cholecystectomy. Thickening of the adrenal glands without discrete nodularity. Bones: Degenerative changes of the thoracic spine. CT/Chest WITH Contrast IMPRESSION: 1. Consolidation with air bronchograms at the lateral aspect of the left upper lobe, most consistent with pneumonia. Again recommend radiographs in 6-8 weeks to ensure resolution. 2. No pleural effusion. 3. Prominent subcentimeter thoracic lymph nodes, likely reactive. Reading Location: [id number]
[2024-12-08 17:17] LABS: Anion Gap 16 (5-15); BUN 16 mg/dL (4-19); BUN/Creat Ratio 18.2 RATIO (10-20); Calcium,Total 9.9 mg/dL (7.6-11.0); Carbon Dioxide 19.5 mmol/L (21.0-32.0); Chloride 92 mmol/L (98-108); Creatinine, Serum 0.87 mg/dL (0.70-1.20); EST Glomerular Filtration Rate 74 (>60); Glucose 183 mg/dL (70-99); Potassium 3.8 mmol/L (3.3-5.1); Sodium Level 127 mmol/L (133-145)
[2024-12-08] MEDS: Ceftriaxone 1 GM/50 ML BAG IV (17:27)
[2024-12-08] MEDS: Azithromycin 500 MG in 0.9% Normal Saline (250mL Bag) 250 ML 255 MG IV (17:34)
--- NOTE | 2024-12-08 18:07 | PCM.HP.STD ---
HPI - General General Date of Admission: 12/08/24 Date of Service: 12/08/24 Chief Complaint: Cough with body aches and fatigue HPI Narrative [place] FERRARI, is a 64 F who presented to [facility] ED on 12/08/2024 with cough with body aches and fatigue. Patient lives at home with her . Was feeling well until Monday when she started to develop a cough with body aches. She progressively became weaker and also had some episodes of nausea with vomiting, so she came in for further evaluation. Chest x-ray showed a left lung consolidation concerning for pneumonia. CT chest confirmed a peripheral left upper lobe consolidation consistent with pneumonia. Notably no fluid collection or concern for empyema noted. Had low-grade fever and mild tachycardia on admission but was breathing comfortably and satting well on room air. Leukocytosis also noted. Was given IV fluids and antibiotics in the ED and hospitalist was contacted for admission. I saw the patient at bedside in the ED. She was mildly fatigued and somewhat flushed appearing but otherwise sitting back comfortably in bed, conversing normally and in no acute distress. She noted that she did feel moderately improved currently compared to earlier today with the treatments thus far. She does continue to have a mild pleuritic chest pain in the anterior to lateral left chest area. She does continue to feel weaker than her baseline. She otherwise denies any acute concerns at this time. [facility] Medical History Anxiety and depression Diabetes mellitus Home Medications ?Medication ?Instructions ?Recorded ?Last Taken ?Type glipizide 5 mg tablet 5 mg PO BIDAC #60 tabs 10/30/19 Unknown Rx aripiprazole 10 mg tablet 10 mg PO DAILY 12/08/24 Unknown History duloxetine 60 mg capsule,delayed 120 mg PO DAILY 12/08/24 Unknown History release glyburide 5 mg tablet 10 mg PO DAILY 12/08/24 Unknown History insulin glargine 100 unit/mL (3 10 unit subcut DAILY 12/08/24 Unknown History mL) subcutaneous pen (Lantus Solostar U-100 Insulin) meloxicam 15 mg tablet 15 mg PO DAILY 12/08/24 Unknown History pen needle, diabetic 31 gauge x 12/08/24 Unknown History pioglitazone 30 mg tablet 30 mg PO DAILY 12/08/24 Unknown History Allergy/AdvReac Type Severity Reaction Status Date / Time No Known Allergies Allergy Verified 12/08/24 14:48 Family History Mother Heart disease Sister Lupus Sister Autoimmune disorder Surgical History History of appendectomy History of knee surgery (~2020) Social History Smoking Status: Current every day smoker tobacco type: cigarettes alcohol intake: never substance use type: does not use ROS Constitutional Constitutional: Reports chills, fatigue, fever(s) and weakness Eyes Eyes: Denies change in vision Cardiovascular Cardiovascular: Denies chest pain Respiratory/Chest Respiratory/Chest: Reports cough; Denies productive cough, shortness of breath at rest, shortness of breath with exertion or wheezing Gastrointestinal Gastrointestinal: Reports nausea and vomiting; Denies abdominal pain, constipation or diarrhea Genitourinary Genitourinary: Denies dysuria Musculoskeletal Musculoskeletal: Reports myalgias; Denies arthralgias Neurologic Neurologic: Denies dizziness, focal weakness or headache(s) Vital Signs Vital Signs Vital Signs: 12/08/24 14:48 12/08/24 16:04 12/08/24 16:05 Temperature 100.4 F H 100.2 F H Temperature Source Oral Temporal Pulse Rate 115 H 108 H Respiratory Rate 16 33 H Respiratory Effort Normal Respiratory Pattern Normal Blood Pressure 140/78 H 152/77 H Blood Pressure Mean 98 102 Pulse Ox 100 96 Oxygen Delivery Method Room Air Room Air 12/08/24 16:48 12/08/24 16:48 12/08/24 16:57 Temperature 100.3 F H 100.3 F H 100.3 F H Temperature Source Oral Oral Pulse Rate 105 H 102 H 98 Respiratory Rate 29 H 28 H 25 H Respiratory Effort Respiratory Pattern Blood Pressure 134/70 H 134/70 H 134/70 H Blood Pressure Mean 91 91 91 Pulse Ox 94 94 94 Oxygen Delivery Method Room Air Room Air 12/08/24 18:00 12/08/24 18:00 Temperature 99.3 F H Temperature Source Oral Pulse Rate 89 91 Respiratory Rate 25 H 26 H Respiratory Effort Respiratory Pattern Blood Pressure 125/64 H 125/64 H Blood Pressure Mean 84 84 Pulse Ox 95 95 Oxygen Delivery Method Room Air Room Air Weight Weight: 74.1 kg Body Mass Index (BMI) 24.8 Physical Exam Const alert, oriented x3, no apparent distress and average body habitus Constitutional Narrative: Pleasant upper middle-aged female, fatigued and somewhat flushed appearing but otherwise sitting back comfortably in bed, conversing normally, in no acute distress. General Appearance: cooperative and comfortable HEENT normocephalic, head/scalp atraumatic, hearing grossly normal bilaterally, nasal mucous membranes and turbinates normal and moist oral mucous membranes Eyes PERRL, EOMs intact bilaterally and conjunctivae normal Neck full ROM Chest inspection of chest normal Resp normal respiratory effort and no use of accessory muscles Resp Narrative: Breathing comfortably on room air at rest. Mild crackles noted in mid left lung zone, otherwise good air movement throughout with no wheezing noted. Cardio regular rate, regular rhythm, no murmurs and peripheral pulses 2+ throughout GI normal to inspection, nondistended, normoactive bowel sounds, soft to palpation, non-tender and non-distended Back/Spine normal ROM Extremity normal to inspection, full ROM and no pedal edema Skin no rashes or lesions noted Psych mental status grossly normal Results Lab / Micro Data 12/08/24 15:40 12/08/24 15:40 Labs: Laboratory Results - last 24 hr 12/08/24 15:40: WBC 15.2 H, RBC 4.70, Hgb 13.8, Hct 40.1, MCV 85.3, MCH 29.4, MCHC 34.4, RDW Std Deviation 39.4, RDW Coeff of Max 12.7, Plt Count 168, MPV 11.7, Immature Gran % (Auto) 1.500 H, Neut % (Auto) 88.9 H, Lymph % (Auto) 4.0 L, [place] % (Auto) 4.6, Eos % (Auto) 0.3, Baso % (Auto) 0.7, Absolute Neuts (auto) 13.5 H, Absolute Lymphs (auto) 0.61 L, Nucleated RBC % 0, Sodium 127 L, Potassium 3.8, Chloride 92 L, Carbon Dioxide 19.5 L, Anion Gap 16 H, BUN 16, Creatinine 0.87, Estim Creat Clear Calc 65.90, Est GFR (MDRD) Non-Af 74, BUN/Creatinine Ratio 18.2, Glucose 183 H, Lactic Acid 1.3, Calcium 9.9, Urine Color Yellow, Urine Clarity Cloudy, Urine pH 6.0, Ur Specific [place] 1.025, Urine Protein 500 H, Urine Glucose (UA) 250 H, Urine Ketones 5 H, Urine Occult Blood 250 H, Urine Nitrite Negative, Urine Bilirubin Negative, Urine Urobilinogen Normal, Ur Leukocyte Esterase 25 H, Urine RBC 0-5 SEEN, Urine WBC 0-5 SEEN, Ur Squamous Epith Cells 0-5 SEEN, Urine Bacteria 0 SEEN, Hyaline Casts 0-5 SEEN, Urine Mucus 0 SEEN Micro: Microbiology 12/08/24 15:40 Mucosa - Nose SARS-CoV-2, Influenza & RSV (PCR) - Final Imaging Radiology Impression Chest X-Ray 12/08/24 15:28 IMPRESSION: Focal ovoid opacity in the peripheral left upper lobe, likely representing infection in the correct clinical setting. Recommend repeat radiographs in 6-8 weeks following completion of appropriate therapy. Reading Location: [id number] Assessment & Plan Assessment/Plan (1) Pneumonia: (2) Weakness: PLAN: Plan Patient is a 64-year-old female who presented to [facility] ED on 12/08/2024 with cough with body aches and fatigue. 1. Community-acquired pneumonia ? Admit under inpatient status to PCU. Chest x-ray showed a left lung consolidation concerning for pneumonia, and CT chest confirmed a peripheral left upper lobe consolidation consistent with pneumonia. No fluid collection or concern for empyema. Tachycardic, low-grade fever and leukocytosis on admission but otherwise did not meet sepsis criteria. Will treat with IV ceftriaxone and azithromycin for now. Sputum culture and urine antigens ordered. Per radiology, will need follow-up imaging in 6 to 8 weeks to confirm consolidation has resolved. 2. Acute debility ? PT/OT/case management consulted. Lives at home with with apparent good functional status at baseline. Reports feeling very weak on admission presumed secondary to pneumonia. Appreciate therapy recommendations. 3. Type 2 diabetes mellitus ? Blood glucose 180 on admission. Will treat with home Lantus 10 units daily and sliding scale insulin with meals while inpatient, adjust as needed. Holding home oral agents. 4. Anxiety/depression ? Stable. Continue home aripiprazole and duloxetine. DVT prophylaxis: Lovenox CODE STATUS: Full code, verified Expected disposition: Home, 2 to 3 days Total clinical time spent by myself addressing the patient's medical issues, reviewing all the data, and collaborating with patient's care team: 55 minutes. Charges/Coding Visit Charges Inpatient E&M: 35093 Init Hosp L2
[2024-12-08 18:20] LABS: Lactic Acid < 1.0 mmol/L (0.0-2.0)
[2024-12-08 20:28] LABS: Hemoglobin A1c 9.9 % (<=5.6)
[2024-12-08] MEDS: Insulin Glargine-YFGN 100 UNIT/ML Pen 10 UNIT SC (21:59)
[2024-12-08 23:19] LABS: Bedside Glucose 139 mg/dL (74-106)
[2024-12-09 03:02] VITALS: BP 139/69; PULSE 103; RESP 16; TEMP 38.3; O2SAT 93
[2024-12-09] MEDS: Acetaminophen 325 MG Tablet 650 MG PO ×3 (03:09→16:31)
[2024-12-09 04:58] LABS: Hematocrit 35.9 % (37-47); Hemoglobin 12.3 g/dL (12.0-15.0); Mean Corp Hgb Conc 34.3 g/dL (32-36); Mean Corpuscular Hgb 29.4 pg (27.0-32.0); Mean Corpuscular Volume 85.7 fL (81-99); Mean Platelet Vol. 11.2 fl (6.2-12.0); Platelet Count 147 K/mm3 (150-450); RBC Distribution Width CV 12.9 % (11.6-14.6); RBC Distribution Width SD 39.9 fl (35.1-43.9); Red Blood Count 4.19 M/mm3 (4.2-5.4); White Blood Count 12.3 K/mm3 (4.4-11.0)
[2024-12-09 05:24] LABS: Anion Gap 13 (5-15); BUN 13 mg/dL (4-19); BUN/Creat Ratio 17.3 RATIO (10-20); Calcium,Total 9.7 mg/dL (7.6-11.0); Carbon Dioxide 19.8 mmol/L (21.0-32.0); Chloride 96 mmol/L (98-108); Creatinine, Serum 0.75 mg/dL (0.70-1.20); EST Glomerular Filtration Rate 89 (>60); Estimated Creatinine Clearance 76.44 ml/min (50-250); Glucose 93 mg/dL (70-99); Potassium 3.2 mmol/L (3.3-5.1); Sodium Level 129 mmol/L (133-145)
[2024-12-09 05:37] VITALS: PULSE 84; TEMP 37.4
[2024-12-09 05:52] LABS: Bedside Glucose 80 mg/dL (74-106)
--- NOTE | 2024-12-09 08:27 | EKG12_ITS ---
Test Reason : CP Blood Pressure : */* mmHG Vent. Rate : 101 BPM Atrial Rate : 101 BPM P-R Int : 146 ms QRS Dur : 78 ms QT Int : 318 ms P-R-T Axes : 68 62 63 degrees QTcB Int : 412 ms Sinus tachycardia Otherwise normal ECG No previous ECGs available Confirmed by Santos Howard ([id number]), society editor NICO RODRIGEZ ([id number]) on 12/10/2024 7:58:37 AM Referred By: REGIS Confirmed By: Santos Howard
[2024-12-09 10:32] VITALS: BP 131/60; PULSE 102; RESP 16; TEMP 37.5; O2SAT 96
[2024-12-09] MEDS: DULoxetine Hcl 60 MG Capsule 120 MG PO (10:35)
[2024-12-09] MEDS: ARIPiprazole 10 MG Tablet PO (10:35)
[2024-12-09] MEDS: Enoxaparin 40 MG/0.4 ML Syringe SC (10:35)
[2024-12-09 12:24] LABS: Bedside Glucose 85 mg/dL (74-106)
--- NOTE | 2024-12-09 14:14 | PN_ITS ---
Subjective Subjective Patient seen and examined. She is still coughing, and says the cough is only occasionally productive. She admits to some fever but no chills. Review of systems is otherwise negative. She does have a low grade fever of 99.5F today. Review of systems is otherwise negative. Objective Data Objective Data Vital Signs: Vital Signs Temp Pulse Resp BP Pulse Ox O2 Del Method 99.5 F H 102 H 16 131/60 H 96 Room Air 12/09/24 10:32 12/09/24 10:32 12/09/24 10:32 12/09/24 10:32 12/09/24 10:32 12/09/24 10:32 Oxygen Delivery Method Room Air Weight: 162 lb 14.746 oz Body Mass Index (BMI) 24.7 Intake & Output: Intake and Output for Last 24 Hours 12/07/24 12/08/24 12/09/24 23:59 23:59 23:59 Intake Total 1305 / 1305 Balance 1305 / 1305 Lab / Micro Data 12/09/24 04:42 12/09/24 04:42 Labs: Laboratory Results - last 24 hr 12/08/24 15:40: WBC 15.2 H, RBC 4.70, Hgb 13.8, Hct 40.1, MCV 85.3, MCH 29.4, MCHC 34.4, RDW Std Deviation 39.4, RDW Coeff of Max 12.7, Plt Count 168, MPV 11.7, Immature Gran % (Auto) 1.500 H, Neut % (Auto) 88.9 H, Lymph % (Auto) 4.0 L , [place] % (Auto) 4.6, Eos % (Auto) 0.3, Baso % (Auto) 0.7, Absolute Neuts (auto) 13.5 H, Absolute Lymphs (auto) 0.61 L, Nucleated RBC % 0, Sodium 127 L, Potassium 3.8, Chloride 92 L, Carbon Dioxide 19.5 L, Anion Gap 16 H, BUN 16, Creatinine 0.87, Estim Creat Clear Calc 65.90, Est GFR (MDRD) Non-Af 74, BUN/Creatinine Ratio 18.2, Glucose 183 H, Hemoglobin A1c 9.9 H, Lactic Acid 1.3, Calcium 9.9, Urine Color Yellow, Urine Clarity Cloudy, Urine pH 6.0, Ur Specific [place] 1.025, Urine Protein 500 H, Urine Glucose (UA) 250 H, Urine Ketones 5 H, Urine Occult Blood 250 H, Urine Nitrite Negative, Urine Bilirubin Negative, Urine Urobilinogen Normal, Ur Leukocyte Esterase 25 H, Urine RBC 0-5 SEEN, Urine WBC 0-5 SEEN, Ur Squamous Epith Cells 0-5 SEEN, Urine Bacteria 0 SEEN, Hyaline Casts 0-5 SEEN, Urine Mucus 0 SEEN 12/08/24 17:11: Lactic Acid < 1.0 12/08/24 21:58: POC Glucose 139 H 12/09/24 04:42: WBC 12.3 H, RBC 4.19 L, Hgb 12.3, Hct 35.9 L, MCV 85.7, MCH 29.4, MCHC 34.3, RDW Std Deviation 39.9, RDW Coeff of Max 12.9, Plt Count 147 L, MPV 11.2, Sodium 129 L, Potassium 3.2 L, Chloride 96 L, Carbon Dioxide 19.8 L, Anion Gap 13, BUN 13, Creatinine 0.75, Estim Creat Clear Calc 76.44, Est GFR (MDRD) Non-Af 89, BUN/Creatinine Ratio 17.3, Glucose 93, Calcium 9.7 12/09/24 05:34: POC Glucose 80 12/09/24 11:43: POC Glucose 85 Micro: Microbiology 12/08/24 15:40 Mucosa - Nose SARS-CoV-2, Influenza & RSV (PCR) - Final Radiography Diagnostic Testing: Radiology Impression Chest X-Ray 12/08/24 15:28 IMPRESSION: Focal ovoid opacity in the peripheral left upper lobe, likely representing infection in the correct clinical setting. Recommend repeat radiographs in 6-8 weeks following completion of appropriate therapy. Reading Location: [facility] Chest CT 12/08/24 16:53 IMPRESSION: 1. Consolidation with air bronchograms at the lateral aspect of the left upper lobe, most consistent with pneumonia. Again recommend radiographs in 6-8 weeks to ensure resolution. 2. No pleural effusion. 3. Prominent subcentimeter thoracic lymph nodes, likely reactive. Reading Location: [facility] Physical Exam Const alert, oriented x3 and no apparent distress General Appearance: cooperative HEENT normocephalic, head/scalp atraumatic, moist oral mucous membranes, oropharynx normal and gingiva normal Eyes PERRL Neck no lymphadenopathy and supple Lymph Lymphatic: no lymphadenopathy noted Resp Resp Narrative: mildly diminished breath sounds bibasally, no wheezes or crackles. On room air. Cardio regular rhythm, S1 normal heart sound, S2 normal heart sound and no murmurs Cardio Narrative: tachycardic GI normal to inspection, nondistended, normoactive bowel sounds, soft to palpation and non-tender Extremity normal capillary refill, no clubbing, cyanosis or edema and no calf tenderness General Extremity: no tenderness to palpation of joints or extremities Skin General Skin Exam: no breakdown Neuro CN's II-XII intact bilaterally, no focal motor deficits and no sensory deficits noted Motor Exam: strength 5/5 throughout and general weakness Psych thought process normal and cooperative Appearance: appropriate Assessment & Plan Assessment/Plan (1) Fever: (2) Pneumonia: (3) Weakness: PLAN: Plan #Community acquired pneumonia * admitted with a complaint of fever, chills and cough. She still admits to fever and cough. * CXR showed a left lung consolidation concerning for pneumonia * CT chest showed a peripheral left upper lobe consolidation consistent with pneumonia * on IV ceftriaxone and azithromycin. continue with current antibiotics * urine for strep negative, but positive for legionella antigen * breathing treatment with bronchodilators * titrate oxygen to maintain sats >90% * #Hyponatremia: * Na is 129. Was 127 yesterday. * Does have chronic hyponatremia. Will monitor. * This may also be due to the Legionella pneumonia #Hypokalemia: K is 3.2. Will replace and trend. #Type 2 diabetes mellitus: * on glipizide and glyburide, but these are on hold. on lantus 10 units daily. ISS. * Accuchecks ACHS * also on pioglitazone, which is also on hold. * A1C is 9.9 * #Anxiety and depression: on aripiprazole and duloxetine DVT prophylaxis: lovenox Charges/Coding Visit Charges Inpatient E&M: 00202 Subs Hosp L2
[2024-12-09 16:23] VITALS: BP 140/74; PULSE 94; RESP 16; TEMP 38.3; O2SAT 94
[2024-12-09 17:45] LABS: Bedside Glucose 119 mg/dL (74-106)
[2024-12-09 18:00] VITALS: TEMP 37.6
[2024-12-09] MEDS: Ketorolac 15 MG/ML Vial IV (20:36)
[2024-12-09] MEDS: 0.9% Saline Lock 10 ML Syringe IV (20:36)
[2024-12-09] MEDS: Azithromycin 500 MG in 0.9% Normal Saline (250mL Bag) 250 ML 255 MG IV (20:38)
[2024-12-09 22:00] VITALS: BP 135/75; PULSE 97; RESP 16; RESP 18; TEMP 37.4; O2SAT 95
[2024-12-09] MEDS: Ceftriaxone 1 GM/50 ML BAG IV (22:27)
[2024-12-09] MEDS: Insulin Glargine-YFGN 100 UNIT/ML Pen 10 UNIT SC (23:14)
[2024-12-09] MEDS: Insulin Lispro 100 UNIT/ML INSULN.PEN SC (23:18)
[2024-12-09 23:33] LABS: Bedside Glucose 165 mg/dL (74-106)
[2024-12-10] VITALS (7 sets, daily range): BP systolic 109–148; BP diastolic 61–76; PULSE 76–96; RESP 14–20; TEMP 36.6–38.7; O2SAT 89–94
[2024-12-10] MEDS: Acetaminophen 325 MG Tablet 650 MG PO ×2 (04:23→19:50)
[2024-12-10] MEDS: Ketorolac 15 MG/ML Vial IV (04:24)
[2024-12-10 05:47] LABS: Absolute Lymphocyte Count 0.49 X10^3/uL (0.83-4.51); Absolute Neutrophil Count 7.8 X10^3/uL (2.0-7.7); Basophil# 0.05 X10^3/uL; Basophil% 0.5 % (0-1); Hematocrit 35.7 % (37-47); Hemoglobin 12.1 g/dL (12.0-15.0); Lymphocyte # 0.49 X10^3/ul (0.83-4.51); Lymphocyte % 5.3 % (19-41); Mean Corp Hgb Conc 33.9 g/dL (32-36); Mean Corpuscular Hgb 28.7 pg (27.0-32.0); Mean Corpuscular Volume 84.6 fL (81-99); Mean Platelet Vol. 11.4 fl (6.2-12.0); Monocyte# 0.71 X10^3/uL; Monocyte% 7.8 % (0-10); NRBC Flagged by Analyzer 0 % (0-5); Neutrophil # 7.76 X10^3/uL (2.7-7.7); Neutrophil % 84.8 % (47-70); POSITIVE DIFFERENTIAL YES; Platelet Count 135 K/mm3 (150-450); RBC Distribution Width SD 39.9 fl (35.1-43.9); Red Blood Count 4.22 M/mm3 (4.2-5.4); White Blood Count 9.2 K/mm3 (4.4-11.0)
[2024-12-10 06:26] LABS: Anion Gap 14 (5-15); BUN 17 mg/dL (4-19); BUN/Creat Ratio 23.4 RATIO (10-20); Calcium,Total 9.9 mg/dL (7.6-11.0); Carbon Dioxide 19.6 mmol/L (21.0-32.0); Chloride 95 mmol/L (98-108); Creatinine, Serum 0.75 mg/dL (0.70-1.20); EST Glomerular Filtration Rate 90 (>60); Estimated Creatinine Clearance 76.44 ml/min (50-250); Glucose 130 mg/dL (70-99); Potassium 3.4 mmol/L (3.3-5.1); Sodium Level 128 mmol/L (133-145)
[2024-12-10 06:39] LABS: Bedside Glucose 130 mg/dL (74-106)
[2024-12-10] MEDS: ARIPiprazole 10 MG Tablet PO (09:08)
[2024-12-10] MEDS: Enoxaparin 40 MG/0.4 ML Syringe SC (09:08)
[2024-12-10] MEDS: DULoxetine Hcl 60 MG Capsule 120 MG PO (09:08)
[2024-12-10] MEDS: Insulin Lispro 100 UNIT/ML INSULN.PEN SC ×2 (11:30→17:08)
[2024-12-10 11:51] LABS: Bedside Glucose 211 mg/dL (74-106)
--- NOTE | 2024-12-10 12:10 | CASEMGMT ---
RN CM Face to Face with patient for initial transition planning/care coordination assessment. RN CM introduced self and role at [facility]. Patient lying in bed, alert and oriented. Patient willing to participate in assessment and is able to answer all questions appropriately. Care providers, pharmacy, and demographics verified. Strata: 2 PCP: Nikolas Specialists: none Preferred Pharmacy: [facility] Insurance: [place] Prescription Benefit: yes Living Will/HPOA: none LNOK: Living Arrangements: Patient lives with in a mobile home with 5 steps and railing to enter the home. Patient states she is independent at home. Transportation: self, DME/HHC: Patient has raised toilet, shower chair, and walker at home. No previous HHC or SNF. Patient wishes to discharge home, denies need for home health at this time. Patient states she has no further needs or concerns at this time. CM to follow for discharge planning needs that may arise. Disposition Plan: Patient to discharge home with family support and follow-up plans in place. Dorinda BLACKWOOD, RN, CM
--- NOTE | 2024-12-10 12:14 | PN_ITS ---
Subjective Subjective Patient seen and examined. She said she felt better today and had no other complaints. She denied any cough or shortness of breath. She is on room air. Review of systems is otherwise negative. Objective Data Objective Data Vital Signs: Vital Signs Temp Pulse Resp BP Pulse Ox O2 Del Method 98.1 F 76 16 109/61 94 Room Air 12/10/24 08:59 12/10/24 08:59 12/10/24 08:59 12/10/24 08:59 12/10/24 08:59 12/10/24 08:59 Oxygen Delivery Method Room Air Weight: 162 lb 14.746 oz Body Mass Index (BMI) 24.7 Intake & Output: Intake and Output for Last 24 Hours 12/08/24 12/09/24 12/10/24 23:59 23:59 23:59 Intake Total 1305 / 1305 700 / 700 305 / 305 Balance 1305 / 1305 700 / 700 305 / 305 Lab / Micro Data 12/10/24 05:21 12/10/24 05:21 Labs: Laboratory Results - last 24 hr 12/09/24 11:43: POC Glucose 85 12/09/24 16:29: POC Glucose 119 H 12/09/24 23:09: POC Glucose 165 H 12/10/24 05:21: WBC 9.2, RBC 4.22, Hgb 12.1, Hct 35.7 L, MCV 84.6, MCH 28.7, MCHC 33.9, RDW Std Deviation 39.9, RDW Coeff of Max 13.0, Plt Count 135 L, MPV 11.4, Immature Gran % (Auto) 1.600 H, Neut % (Auto) 84.8 H, Lymph % (Auto) 5.3 L , [place] % (Auto) 7.8, Eos % (Auto) 0.0, Baso % (Auto) 0.5, Absolute Neuts (auto) 7.8 H, Absolute Lymphs (auto) 0.49 L, Nucleated RBC % 0, Sodium 128 L, Potassium 3.4, Chloride 95 L, Carbon Dioxide 19.6 L, Anion Gap 14, BUN 17, Creatinine 0.75, Estim Creat Clear Calc 76.44, Est GFR (MDRD) Non-Af 90, BUN/Creatinine Ratio 23.4 H, Glucose 130 H, Calcium 9.9 12/10/24 06:19: POC Glucose 130 H 12/10/24 11:28: POC Glucose 211 H Micro: Microbiology 12/09/24 21:15 Sputum, Expectorated/Coughed Gram Stain - Final 12/08/24 16:00 Urine, Clean Catch Legionella Antigen - Final 12/08/24 16:00 Urine, Clean Catch Streptococcus pneumoniae Antigen (M - Final 12/08/24 15:40 Mucosa - Nose SARS-CoV-2, Influenza & RSV (PCR) - Final Physical Exam Const alert, oriented x3, no apparent distress and average body habitus General Appearance: cooperative and comfortable HEENT normocephalic, head/scalp atraumatic, hearing grossly normal bilaterally, moist oral mucous membranes, oropharynx normal and gingiva normal Eyes EOMs intact bilaterally and conjunctivae normal Neck full ROM and supple Lymph Lymphatic: no lymphadenopathy noted Chest inspection of chest normal Resp Resp Narrative: mildly diminished breath sounds bibasally, no wheezes or crackles. On room air. Cardio regular rate, regular rhythm, S1 normal heart sound, S2 normal heart sound, no murmurs and peripheral pulses 2+ throughout GI normal to inspection, nondistended, normoactive bowel sounds, soft to palpation, non-tender and non-distended Back/Spine normal ROM Extremity normal to inspection, full ROM, normal capillary refill, no clubbing, cyanosis or edema, no calf tenderness and no pedal edema General Extremity: no tenderness to palpation of joints or extremities Skin no rashes or lesions noted General Skin Exam: no breakdown Neuro no focal motor deficits and no sensory deficits noted Motor Exam: strength 5/5 throughout and general weakness Psych mental status grossly normal, thought process normal and cooperative Appearance: appropriate Assessment & Plan Assessment/Plan (1) Fever: (2) Pneumonia: (3) Weakness: PLAN: Plan #Community acquired pneumonia due to Legionella pneumonia * admitted with a complaint of fever, chills and cough. She still admits to fever and cough. * CXR showed a left lung consolidation concerning for pneumonia * CT chest showed a peripheral left upper lobe consolidation consistent with pneumonia * on IV ceftriaxone and azithromycin. continue * urine for strep negative, but positive for legionella antigen * breathing treatment with bronchodilators * titrate oxygen to maintain sats >90% * #Hyponatremia: * Na is 128 today. Was 129 yesterday. * Does have chronic hyponatremia. Will monitor. * This may also be due to the Legionella pneumonia #Hypokalemia: K is 3.2. Will replace and trend. #Type 2 diabetes mellitus: * on glipizide and glyburide, but these are on hold. on lantus 10 units daily. ISS. * Accuchecks ACHS * also on pioglitazone, which is also on hold. * A1C is 9.9 * #Anxiety and depression: on aripiprazole and duloxetine DVT prophylaxis: lovenox Charges/Coding Visit Charges Inpatient E&M: 17471 Subs Hosp L2
[2024-12-10 17:26] LABS: Bedside Glucose 192 mg/dL (74-106)
[2024-12-10] MEDS: Ceftriaxone 1 GM/50 ML BAG IV (20:53)
[2024-12-10] MEDS: Azithromycin 500 MG in 0.9% Normal Saline (250mL Bag) 250 ML 250 MG IV (22:21)
[2024-12-10 23:17] LABS: Bedside Glucose 130 mg/dL (74-106)
[2024-12-11] VITALS (8 sets, daily range): BP systolic 113–157; BP diastolic 66–75; PULSE 77–92; RESP 16–18; TEMP 36.7–38.4; O2SAT 88–97
[2024-12-11] MEDS: Acetaminophen 325 MG Tablet 650 MG PO (03:53)
[2024-12-11 06:23] LABS: Absolute Lymphocyte Count 0.58 X10^3/uL (0.83-4.51); Absolute Neutrophil Count 6.5 X10^3/uL (2.0-7.7); Basophil# 0.05 X10^3/uL; Basophil% 0.6 % (0-1); Eosinophil# 0.01 X10^3/uL; Eosinophils% 0.1 % (0-5); Hematocrit 35.6 % (37-47); Hemoglobin 12.5 g/dL (12.0-15.0); Lymphocyte # 0.58 X10^3/ul (0.83-4.51); Lymphocyte % 7.1 % (19-41); Mean Corp Hgb Conc 35.1 g/dL (32-36); Mean Corpuscular Hgb 29.4 pg (27.0-32.0); Mean Corpuscular Volume 83.8 fL (81-99); Mean Platelet Vol. 11.3 fl (6.2-12.0); Monocyte# 0.91 X10^3/uL; Monocyte% 11.1 % (0-10); NRBC Flagged by Analyzer 0 % (0-5); Neutrophil # 6.45 X10^3/uL (2.7-7.7); Neutrophil % 78.9 % (47-70); POSITIVE DIFFERENTIAL YES; Platelet Count 152 K/mm3 (150-450); RBC Distribution Width SD 39.5 fl (35.1-43.9); Red Blood Count 4.25 M/mm3 (4.2-5.4); White Blood Count 8.2 K/mm3 (4.4-11.0)
[2024-12-11 06:48] LABS: Anion Gap 13 (5-15); BUN 14 mg/dL (4-19); BUN/Creat Ratio 20.2 RATIO (10-20); Calcium,Total 9.4 mg/dL (7.6-11.0); Carbon Dioxide 20.8 mmol/L (21.0-32.0); Chloride 96 mmol/L (98-108); Creatinine, Serum 0.68 mg/dL (0.70-1.20); EST Glomerular Filtration Rate 97 (>60); Estimated Creatinine Clearance 84.31 ml/min (50-250); Glucose 154 mg/dL (70-99); Potassium 3.1 mmol/L (3.3-5.1); Sodium Level 129 mmol/L (133-145)
[2024-12-11 07:03] LABS: Bedside Glucose 143 mg/dL (74-106)
[2024-12-11] MEDS: Potassium Chloride Oral Tablet 20 MEQ 40 MEQ PO (08:44)
[2024-12-11] MEDS: ARIPiprazole 10 MG Tablet PO (08:44)
[2024-12-11] MEDS: DULoxetine Hcl 60 MG Capsule 120 MG PO (08:44)
[2024-12-11] MEDS: Enoxaparin 40 MG/0.4 ML Syringe SC (08:45)
[2024-12-11] MEDS: levoFLOXacin IV 500 MG/100 ML BAG 100 MG IV (09:54)
[2024-12-11] MEDS: Insulin Lispro 100 UNIT/ML INSULN.PEN SC ×3 (10:29→21:55)
[2024-12-11 10:54] LABS: Bedside Glucose 259 mg/dL (74-106)
--- NOTE | 2024-12-11 13:46 | PN_ITS ---
Subjective Subjective Patient seen and examined today. She says she felt a little bit more short of breath today. She had been on room air yesterday but was now on 4 L of oxygen. She still running a low-grade fever. Review of systems otherwise negative. Objective Data Objective Data Vital Signs: Vital Signs Temp Pulse Resp BP Pulse Ox O2 Del Method O2 Flow Rate 99.2 F H 92 18 131/66 H 94 Nasal Cannula 4 12/11/24 13:36 12/11/24 13:36 12/11/24 13:36 12/11/24 13:36 12/11/24 13:36 12/11/24 13:36 12/11/24 13:36 Oxygen Flow Rate (L/min) 4 Oxygen Delivery Method Nasal Cannula Weight: 162 lb 14.746 oz Body Mass Index (BMI) 24.7 Intake & Output: Intake and Output for Last 24 Hours 12/09/24 12/10/24 12/11/24 23:59 23:59 23:59 Intake Total 700 / 700 1060 / 1410 1250 / 1250 Balance 700 / 700 1060 / 1410 1250 / 1250 Lab / Micro Data 12/11/24 06:08 12/11/24 06:08 Labs: Laboratory Results - last 24 hr 12/10/24 17:07: POC Glucose 192 H 12/10/24 21:00: POC Glucose 130 H 12/11/24 06:08: WBC 8.2, RBC 4.25, Hgb 12.5, Hct 35.6 L, MCV 83.8, MCH 29.4, MCHC 35.1, RDW Std Deviation 39.5, RDW Coeff of Max 13.0, Plt Count 152, MPV 11.3, Immature Gran % (Auto) 2.200 H, Neut % (Auto) 78.9 H, Lymph % (Auto) 7.1 L , [place] % (Auto) 11.1 H, Eos % (Auto) 0.1, Baso % (Auto) 0.6, Absolute Neuts (auto) 6.5, Absolute Lymphs (auto) 0.58 L, Nucleated RBC % 0, Sodium 129 L, P otassium 3.1 L, Chloride 96 L, Carbon Dioxide 20.8 L, Anion Gap 13, BUN 14, C reatinine 0.68 L, Estim Creat Clear Calc 84.31, Est GFR (MDRD) Non-Af 97, B UN/Creatinine Ratio 20.2 H, Glucose 154 H, Calcium 9.4 12/11/24 06:37: POC Glucose 143 H 12/11/24 10:28: POC Glucose 259 H Micro: Microbiology 12/08/24 17:22 Blood Culture (Wb) - Left Hand Blood Culture - Preliminary No growth in 48 hours. 12/08/24 17:11 Blood Culture (Wb) - Right Hand Blood Culture - Preliminary No growth in 48 hours. 12/08/24 16:00 Urine, Clean Catch Legionella Antigen - Final Legionella Antigen 12/08/24 16:00 Urine, Clean Catch Streptococcus pneumoniae Antigen (M - Final 12/09/24 21:15 Sputum, Expectorated/Coughed Gram Stain - Final 12/08/24 15:40 Mucosa - Nose SARS-CoV-2, Influenza & RSV (PCR) - Final Physical Exam Const alert, oriented x3, no apparent distress and average body habitus General Appearance: cooperative and comfortable HEENT normocephalic, head/scalp atraumatic, hearing grossly normal bilaterally, moist oral mucous membranes, oropharynx normal and gingiva normal Eyes EOMs intact bilaterally and conjunctivae normal Neck full ROM, no lymphadenopathy and supple Lymph Lymphatic: no lymphadenopathy noted Chest inspection of chest normal Resp normal respiratory effort and no use of accessory muscles Resp Narrative: mildly diminished breath sounds bibasally, no wheezes or crackles. On 4L of oxygen Cardio regular rate, regular rhythm, S1 normal heart sound, S2 normal heart sound, no murmurs and peripheral pulses 2+ throughout Cardio Narrative: tachycardic GI normal to inspection, nondistended, normoactive bowel sounds, soft to palpation, non-tender and non-distended Back/Spine normal ROM Extremity normal to inspection, full ROM, normal capillary refill, no clubbing, cyanosis or edema, no calf tenderness and no pedal edema General Extremity: no tenderness to palpation of joints or extremities Skin no rashes or lesions noted General Skin Exam: no breakdown Neuro CN's II-XII intact bilaterally, no focal motor deficits and no sensory deficits noted Motor Exam: strength 5/5 throughout and general weakness Psych mental status grossly normal, thought process normal and cooperative Appearance: appropriate Assessment & Plan Assessment/Plan (1) Fever: (2) Pneumonia: (3) Weakness: PLAN: Plan # Hypoxia due to community acquired pneumonia due to Legionella pneumonia * admitted with a complaint of fever, chills and cough. She still admits to fever and cough. * CXR showed a left lung consolidation concerning for pneumonia * CT chest showed a peripheral left upper lobe consolidation consistent with pneumonia * on IV ceftriaxone and azithromycin. Patient still running a fever now requiring 4 L of oxygen. Will switch antibiotics to IV levofloxacin. * urine for strep negative, but positive for legionella antigen * breathing treatment with bronchodilators * titrate oxygen to maintain sats >90% * Blood culture showed no growth after 48 hours sputum culture is pending. * #Hyponatremia: * Na is 129 today. * Does have chronic hyponatremia. Will monitor. * This may also be due to the Legionella pneumonia #Hypokalemia: K is 3.1. Will replace and trend. #Type 2 diabetes mellitus: * on glipizide and glyburide, but these are on hold. on lantus 10 units daily. ISS. * Accuchecks ACHS * also on pioglitazone, which is also on hold. * A1C is 9.9 * #Anxiety and depression: on aripiprazole and duloxetine DVT prophylaxis: lovenox Charges/Coding Visit Charges Inpatient E&M: 34970 Subs Hosp L2
[2024-12-11 18:31] LABS: Bedside Glucose 217 mg/dL (74-106)
[2024-12-11 22:14] LABS: Bedside Glucose 169 mg/dL (74-106)
[2024-12-12 04:25] VITALS: BP 122/55; PULSE 83; RESP 18; TEMP 37.2; O2SAT 93
[2024-12-12 05:45] LABS: Absolute Neutrophil Count 5.5 X10^3/uL (2.0-7.7); Basophil# 0.04 X10^3/uL; Basophil% 0.5 % (0-1); Eosinophil# 0.02 X10^3/uL; Eosinophils% 0.3 % (0-5); Hematocrit 34.9 % (37-47); Hemoglobin 11.9 g/dL (12.0-15.0); Lymphocyte % 13.8 % (19-41); Mean Corp Hgb Conc 34.1 g/dL (32-36); Mean Corpuscular Hgb 28.5 pg (27.0-32.0); Mean Corpuscular Volume 83.7 fL (81-99); Mean Platelet Vol. 11.7 fl (6.2-12.0); Monocyte# 1.17 X10^3/uL; Monocyte% 14.7 % (0-10); NRBC Flagged by Analyzer 0 % (0-5); Neutrophil # 5.46 X10^3/uL (2.7-7.7); Neutrophil % 68.3 % (47-70); Platelet Count 175 K/mm3 (150-450); RBC Distribution Width SD 39.8 fl (35.1-43.9); Red Blood Count 4.17 M/mm3 (4.2-5.4)
[2024-12-12 06:23] LABS: Anion Gap 13 (5-15); BUN 14 mg/dL (4-19); BUN/Creat Ratio 21.3 RATIO (10-20); Carbon Dioxide 21.5 mmol/L (21.0-32.0); Chloride 95 mmol/L (98-108); Creatinine, Serum 0.63 mg/dL (0.70-1.20); EST Glomerular Filtration Rate 99 (>60); Glucose 159 mg/dL (70-99); Potassium 3.1 mmol/L (3.3-5.1); Sodium Level 130 mmol/L (133-145)
[2024-12-12] MEDS: Insulin Lispro 100 UNIT/ML INSULN.PEN SC ×2 (06:54→12:39)
[2024-12-12 07:14] LABS: Bedside Glucose 192 mg/dL (74-106)
[2024-12-12] MEDS: DULoxetine Hcl 60 MG Capsule 120 MG PO (09:22)
[2024-12-12] MEDS: Enoxaparin 40 MG/0.4 ML Syringe SC (09:22)
[2024-12-12] MEDS: levoFLOXacin IV 500 MG/100 ML BAG 100 MG IV (09:30)
[2024-12-12] MEDS: 0.9% Saline Lock 10 ML Syringe IV (09:30)
[2024-12-12] MEDS: ARIPiprazole 10 MG Tablet PO (09:30)
[2024-12-12] MEDS: 0.9% Normal Saline (250mL Bag) 250 ML 15 ML IV ×2 (09:55)
[2024-12-12] MEDS: Potassium Chloride 10mEq/100mL 10 MEQ/100 ML IV.SOLN. 100 MEQ IV BOLUS ×4 (09:58→14:37)
[2024-12-12 10:00] VITALS: BP 122/63; PULSE 80; RESP 18; TEMP 35.9; O2SAT 94
[2024-12-12 12:58] LABS: Bedside Glucose 285 mg/dL (74-106)
[2024-12-12 15:36] VITALS: O2SAT 92; O2SAT 93
[2024-12-12 15:38] LABS: Anion Gap 12 (5-15); BUN 14 mg/dL (4-19); BUN/Creat Ratio 21.1 RATIO (10-20); Calcium,Total 9.2 mg/dL (7.6-11.0); Chloride 96 mmol/L (98-108); Creatinine, Serum 0.67 mg/dL (0.70-1.20); EST Glomerular Filtration Rate 98 (>60); Estimated Creatinine Clearance 85.57 ml/min (50-250); Glucose 169 mg/dL (70-99); Potassium 3.6 mmol/L (3.3-5.1); Sodium Level 129 mmol/L (133-145)
[2024-12-12 16:00] VITALS: BP 125/65; PULSE 85; RESP 18; TEMP 35.9; O2SAT 95
--- NOTE | 2024-12-12 16:36 | DCINST_ITS ---
Discharge Instructions Diet Discharge Diet: Low fat / Low cholesterol DC O2, CPAP, BIPAP needs Home O2 Discharge instructions: No Dressing / Incision Discharge Activity: Return to Normal Activity Weight Bearing Status: Weight bearing as tolerated Dressing / Incision Call your doctor if you observe: Fever of 101 or Higher, Shortness of breath, Dizziness, Swelling in the ankles and Chest pain Follow Up Care Test Results: Test results from this visit will be discussed in further detail at your follow- up appointment, if applicable. Discharge Plan Admission Admit Date/Time: 12/08/24 18:07 Primary Reason for Your Visit: Legionella pneumonia Attending Provider: Liz Garrett Primary Care Provider: Trina Connor Consulting Providers: Parish Noel Instructions Patient Instructions: Legionella, ED Pneumonia (Adult) Discharge Orders/Prescriptions Prescriptions: New levofloxacin 750 mg tablet 750 mg PO DAILY Qty: 5 0RF Continued glipizide 5 MG tablet 5 mg PO BIDAC Qty: 60 0RF glyburide 5 mg tablet 10 mg PO DAILY meloxicam 15 mg tablet 15 mg PO DAILY pioglitazone 30 mg tablet 30 mg PO DAILY aripiprazole 10 mg tablet 10 mg PO DAILY duloxetine 60 MG capsule 120 mg PO DAILY insulin glargine [Lantus Solostar U-100 Insulin] 100 unit/mL (3 mL) insulin pen 10 unit subcut DAILY (DME) pen needle, diabetic 31 gauge x 15/64 needle MISCELLANEOUS DAILY Referrals / Follow Up: Trina Connor MD [Primary Care Provider] - Within 1 Week Disposition Disposition (needs filled in before D/C Order can be placed): Home, Self Care
--- NOTE | 2024-12-12 16:36 | DS.PCM_ITS ---
Providers Date of Admission: 12/08/24 Date of Discharge: 12/12/24 Primary Care Physician: Trina Connor MD Reason For Visit: CAP W/ GENERALIZED WEAKNESS Diagnosis Discharge Diagnosis (1) Fever: Status: Acute Code(s): R50.9 - Fever, unspecified (2) Pneumonia: Status: Acute Code(s): J18.9 - Pneumonia, unspecified organism (3) Weakness: Status: Acute Code(s): R53.1 - Weakness Plan # Hypoxia due to community acquired pneumonia due to Legionella pneumonia * admitted with a complaint of fever, chills and cough. She still admits to fever and cough. * CXR showed a left lung consolidation concerning for pneumonia * CT chest showed a peripheral left upper lobe consolidation consistent with pneumonia * on IV ceftriaxone and azithromycin. Patient still running a fever now requiring 4 L of oxygen. Will switch antibiotics to IV levofloxacin. * urine for strep negative, but positive for legionella antigen * breathing treatment with bronchodilators * titrate oxygen to maintain sats >90% * Blood culture showed no growth after 48 hours sputum culture is pending. * #Hyponatremia: * Na is 129 today. * Does have chronic hyponatremia. Will monitor. * This may also be due to the Legionella pneumonia #Hypokalemia: K is 3.1. Will replace and trend. #Type 2 diabetes mellitus: * on glipizide and glyburide, but these are on hold. on lantus 10 units daily. ISS. * Accuchecks ACHS * also on pioglitazone, which is also on hold. * A1C is 9.9 * #Anxiety and depression: on aripiprazole and duloxetine DVT prophylaxis: lovenox Medications at Discharge Home Medications glipizide 5 mg tablet 5 mg PO BIDAC #60 tabs 10/30/19 aripiprazole 10 mg tablet 10 mg PO DAILY 12/08/24 duloxetine 60 mg capsule,delayed release 120 mg PO DAILY 12/08/24 glyburide 5 mg tablet 10 mg PO DAILY 12/08/24 insulin glargine 100 unit/mL (3 mL) subcutaneous pen (Lantus Solostar U-100 Insulin) 10 unit subcut DAILY 12/08/24 meloxicam 15 mg tablet 15 mg PO DAILY 12/08/24 pen needle, diabetic 31 gauge x 15/64 06/01/25 pioglitazone 30 mg tablet 30 mg PO DAILY 12/08/24 levofloxacin 750 mg tablet 750 mg PO DAILY #5 tabs 12/12/24 Hospital Course Operations None Procedures None Summary of Care Provided Minutes Spent on Discharge: 45 Hospital Course: Patient is a 64-year-old female with past medical history as outlined who was admitted via the ED on 12/08/2024 with complaint of cough with associated body aches and fatigue. She also had some episodes of nausea and vomiting so she came into the ED where chest x-ray showed a left lung consolidation concerning for pneumonia. CT chest showed a peripheral left upper lobe consolidation. She was admitted to the manage for community-acquired pneumonia. She was started on IV ceftriaxone and azithromycin. Urine for Legionella antigen was positive. Urine for strep antigen was negative. Hospital course was complicated by mild hyponatremia which was likely due to the Legionella pneumonia. She initially required oxygen required up to 4 L but was eventually weaned off of oxygen and felt much better. His shortness of breath improved and her cough also improved. She remained stable and was discharged home on 12/12/2024. She was discharged on p.o. levofloxacin for 5-day course. She is to follow-up with her primary care doctor within 1 to 2 weeks. Patient seen and examined prior to discharge. She had no active complaints. Review of systems otherwise negative. Labs and vitals reviewed. Home medication reviewed and reconciled. Physical Exam Const alert, oriented x3, no apparent distress and average body habitus General Appearance: cooperative and comfortable HEENT normocephalic, head/scalp atraumatic, hearing grossly normal bilaterally, nasal mucous membranes and turbinates normal, moist oral mucous membranes, oropharynx normal and gingiva normal Eyes PERRL, EOMs intact bilaterally and conjunctivae normal Neck full ROM, no lymphadenopathy and supple Lymph Lymphatic: no lymphadenopathy noted Chest inspection of chest normal Resp normal respiratory effort and no use of accessory muscles Resp Narrative: mildly diminished breath sounds bibasally. On room air. Cardio regular rate, regular rhythm, S1 normal heart sound, S2 normal heart sound, no murmurs and peripheral pulses 2+ throughout Cardio Narrative: tachycardic GI normal to inspection, nondistended, normoactive bowel sounds, soft to palpation, non-tender and non-distended Back/Spine normal ROM Extremity normal to inspection, full ROM, normal capillary refill, no clubbing, cyanosis or edema, no calf tenderness and no pedal edema General Extremity: no tenderness to palpation of joints or extremities Skin no rashes or lesions noted General Skin Exam: no breakdown Neuro oriented x3 and no focal motor deficits Sensorium / Orientation: awake and alert Motor Exam: strength 5/5 throughout Psych mental status grossly normal, thought process normal and cooperative Appearance: appropriate Weight / BMI Weight Weight: 162 lb 14.746 oz Body Mass Index (BMI) 24.7 ABG / Lab / Microbiology Data 12/12/24 04:30 12/12/24 14:53 Laboratory: Laboratory Results - last 24 hr 12/11/24 16:28: POC Glucose 217 H 12/11/24 21:53: POC Glucose 169 H 12/12/24 04:30: WBC 8.0, RBC 4.17 L, Hgb 11.9 L, Hct 34.9 L, MCV 83.7, MCH 28.5, MCHC 34.1, RDW Std Deviation 39.8, RDW Coeff of Max 13.0, Plt Count 175, MPV 11.7, Immature Gran % (Auto) 2.400 H, Neut % (Auto) 68.3, Lymph % (Auto) 13.8 L, [place] % (Auto) 14.7 H, Eos % (Auto) 0.3, Baso % (Auto) 0.5, Absolute Neuts (auto) 5.5, Absolute Lymphs (auto) 1.10, Nucleated RBC % 0, Sodium 130 L, Potassium 3.1 L, Chloride 95 L, Carbon Dioxide 21.5, Anion Gap 13, BUN 14, Creatinine 0.63 L, Estim Creat Clear Calc 91.00, Est GFR (MDRD) Non-Af 99, BUN/Creatinine Ratio 21.3 H, Glucose 159 H, Calcium 9.0 12/12/24 06:52: POC Glucose 192 H 12/12/24 12:38: POC Glucose 285 H 12/12/24 14:53: Sodium 129 L, Potassium 3.6, Chloride 96 L, Carbon Dioxide 21.0, Anion Gap 12, BUN 14, Creatinine 0.67 L, Estim Creat Clear Calc 85.57, Est GFR (MDRD) Non-Af 98, BUN/Creatinine Ratio 21.1 H, Glucose 169 H, Calcium 9.2 Microbiology: Microbiology 12/09/24 21:15 Sputum, Expectorated/Coughed Gram Stain - Final 12/09/24 21:15 Sputum, Expectorated/Coughed Respiratory Culture - Final 12/08/24 17:22 Blood Culture (Wb) - Left Hand Blood Culture - Preliminary No growth in 48 hours. 12/08/24 17:11 Blood Culture (Wb) - Right Hand Blood Culture - Preliminary No growth in 48 hours. 12/08/24 16:00 Urine, Clean Catch Legionella Antigen - Final Legionella Antigen 12/08/24 16:00 Urine, Clean Catch Streptococcus pneumoniae Antigen (M - Final 12/08/24 15:40 Mucosa - Nose SARS-CoV-2, Influenza & RSV (PCR) - Final D/C Instructions Discharge Diet: Low fat / Low cholesterol Discharge Activity: Return to Normal Activity Weight Bearing Status: Weight bearing as tolerated Call your doctor if you observe: Fever of 101 or Higher, Shortness of breath, Dizziness, Swelling in the ankles and Chest pain DC O2, CPAP, BIPAP Needs Home O2 Discharge instructions: No DC home with Oxygen: No Meaningful Use Info Meaningful Use Meaningful Use Diagnoses (Choose all that apply): None applicable Ischemic Stroke Statin Dosing Therapy Reference: STATIN DOSE THERAPY REFERENCE: * Patients > 75 years receive moderate or high dose statin therapy. * Patients 75 years or YOUNGER should receive HIGH intensity statin dose unless contraindicated. You will be required to document reason for non-treatment if statin daily dose does not meet guidelines. HIGH DOSE STATIN THERAPY DAILY Atorvastatin > than or = to 40 mg Rosuvastatin > than or = to 20 mg Amlodipine + Atorvastatin > than or = to 2.5/40 mg Ezetimibe + Simvastatin 10/80 mg Simvastatin 80mg Discharge Plan Admission Admit Date/Time: 12/08/24 18:07 Primary Reason for Your Visit: Legionella pneumonia Attending Provider: Liz Garrett Primary Care Provider: Trina Connor Consulting Providers: Parish Noel Instructions Patient Instructions: Legionella, ED Pneumonia (Adult) Discharge Orders/Prescriptions Prescriptions: New levofloxacin 750 mg tablet 750 mg PO DAILY Qty: 5 0RF Continued glipizide 5 MG tablet 5 mg PO BIDAC Qty: 60 0RF glyburide 5 mg tablet 10 mg PO DAILY meloxicam 15 mg tablet 15 mg PO DAILY pioglitazone 30 mg tablet 30 mg PO DAILY aripiprazole 10 mg tablet 10 mg PO DAILY duloxetine 60 MG capsule 120 mg PO DAILY insulin glargine [Lantus Solostar U-100 Insulin] 100 unit/mL (3 mL) insulin pen 10 unit subcut DAILY (DME) pen needle, diabetic 31 gauge x 15/64 needle MISCELLANEOUS DAILY Referrals / Follow Up: Trina Connor MD [Primary Care Provider] - Within 1 Week Disposition Disposition (needs filled in before D/C Order can be placed): Home, Self Care Charges/Coding Visit Charges Inpatient E&M: 59073 Disch Hosp >30min
[2024-12-12 17:29] LABS: Bedside Glucose 144 mg/dL (74-106)
== END 2024-12-12 17:55 | disposition home or self-care (01) | DRG 178 ==
LOC: ED 18:02 → PCU 18:23
PROVIDERS: Admitting Provider Hospitalist; Emergency Provider Emergency Medicine; PCP Family Medicine; Visit Provider Student in an Organized Health Care Education/Training Program
DX: A48.1 Legionnaires' disease (principal); E87.1 Hypo-osmolality and hyponatremia; E11.9 Type 2 diabetes mellitus without complications; F32.A Depression, unspecified; Z79.4 Long term (current) use of insulin; E87.6 Hypokalemia; F17.210 Nicotine dependence, cigarettes, uncomplicated; F41.9 Anxiety disorder, unspecified; Z79.84 Long term (current) use of oral hypoglycemic drugs; Z79.899 Other long term (current) drug therapy
CPT/HCPCS: 36415; 71046; 71260; 80048; 81001; 82962; 83036; 83605; 85025; 85027; 87040; 87070; 87205; 87449; 87631; 93005; 97116; 97162; 97166; 97530; 97535; 99285; P9612; Q9967; A4216

== ENCOUNTER → 2025-04-09 | Outpatient (CLI) | payer BC, SELFPAY ==
[2025-04-09 16:27] LABS: Hematocrit 45.6 % (37-47); Hemoglobin 14.8 g/dL (12.0-15.0); Mean Corp Hgb Conc 32.5 g/dL (32-36); Mean Corpuscular Volume 89.1 fL (81-99); Mean Platelet Vol. 11.5 fl (6.2-12.0); Platelet Count 271 K/mm3 (150-450); RBC Distribution Width CV 13.2 % (11.6-14.6); RBC Distribution Width SD 43.4 fl (35.1-43.9); Red Blood Count 5.12 M/mm3 (4.2-5.4); White Blood Count 10.8 K/mm3 (4.4-11.0)
[2025-04-09 16:28] LABS: AST(SGOT) 18 U/L (<=31); Alanine Aminotransfer ALT/SGPT 16 U/L (<=34); Albumin, Serum 4.5 g/dL (3.4-4.8); Alkaline Phosphatase 99 U/L (35-104); Anion Gap 12 (5-15); BUN 22 mg/dL (4-19); BUN/Creat Ratio 27.8 RATIO (10-20); Calcium,Total 9.8 mg/dL (7.6-11.0); Carbon Dioxide 23.4 mmol/L (21.0-32.0); Chloride 102 mmol/L (98-108); Ferritin 108 ng/mL (22-378); Globulin 3.5 g/dL (2.2-4.2); Glucose 191 mg/dL (70-99); Potassium 4.3 mmol/L (3.3-5.1); Vitamin B12 397 pg/mL (180-914)
[2025-04-09 17:05] LABS: Iron 80 ug/dL (50-170); Magnesium 2.3 mg/dL (1.5-2.2)
[2025-04-14 12:08] LABS: Vitamin D 1,25-Dihydroxy 55.6 pg/mL (24.8-81.5)
[2025-04-17 01:07] LABS: Folate, Hemolysate Test 376.0 ng/mL (Not Estab.); Folate, RBC (Hct) Test 45.9 % (34.0-46.6); Folates, RBC Test 819 ng/mL (>498); VITAMIN B6 5.0 ug/L (3.4-65.2); Vitamin B1, Thiamine 136.6 nmol/L (66.5-200.0)
== END | disposition home or self-care (01) ==
PROVIDERS: PCP Family Medicine; Referring Provider Psychiatry & Neurology Neurology; Visit Provider Psychiatry & Neurology Neurology
DX: M25.511 Pain in right shoulder (principal); M25.512 Pain in left shoulder; G62.9 Polyneuropathy, unspecified; G24.9 Dystonia, unspecified
CPT/HCPCS: 36415; 73030; 80053; 82607; 82652; 82728; 82747; 83540; 83735; 83883; 84207; 84425; 84443; 85014; 85027

== ENCOUNTER → 2025-04-23 | Outpatient (CLI) | payer BC, SELFPAY ==
--- NOTE | 2025-04-23 07:00 | MRI_ITS ---
PROCEDURE: BRAIN W/WO CONTRAST 04/23/2025 REASON FOR EXAM: PARKINSONISM; TARDIVE DYSKINESIA TECHNIQUE: Procedure Code: [id number] Modality: MR Procedure: BRAIN W/WO CONTRAST Multiplanar and multisequence images were obtained. CONTRAST: Clariscan VOLUME: 17 mL COMPARISON: None FINDINGS: There is no abnormal intracranial contrast enhancement. There is a normal sulcal pattern and gyral configuration. There is no evidence of acute intracranial hemorrhage or infarction. The delaney-white differentiation is well preserved. There is no evidence of restricted diffusion. The ventricles and basilar cisterns are normal. There are normal flow voids demonstrated in the recognized intracranial vessels. The cerebellum and brainstem are unremarkable. The cerebellar pontine angles are normal. The craniovertebral junction is normal. The sella and suprasellar regions are normal. The orbits and retro-orbital regions are unremarkable. There is nasal septal deviation to the left. There is a left-sided nasal spur extending into the middle meatus. There is thickening of the nasal mucosa of the middle and inferior turbinates. There is hypoplasia of the left maxillary sinus. There is paradoxical coiling of the middle nasal christina on the right. There is mucoperiosteal thickening of the ethmoidal air cells and left maxillary sinus.. The mastoid air cells are clear. There is normal bone marrow signal in the skull base and calvarium. MRI/Brain W/WO Contrast IMPRESSION: 1. Normal MR imaging of the brain with and without contrast. 2. Multiple anomalies of the sinonasal system. Reading Location: [place] [id number]
== END | disposition home or self-care (01) ==
LOC: OPMRI 06:59
PROVIDERS: PCP Family Medicine; Referring Provider Psychiatry & Neurology Neurology; Visit Provider Psychiatry & Neurology Neurology
DX: G20.C Parkinsonism, unspecified (principal); G24.01 Drug induced subacute dyskinesia
CPT/HCPCS: 70553; A9575

== ENCOUNTER → 2025-05-08 | Outpatient (CLI) | payer BC, SELFPAY ==
[2025-05-08 11:00] LABS: AST(SGOT) 16 U/L (<=31); Alanine Aminotransfer ALT/SGPT 14 U/L (<=34); Albumin, Serum 4.2 g/dL (3.4-4.8); Alkaline Phosphatase 86 U/L (35-104); Anion Gap 12 (5-15); BUN 20 mg/dL (4-19); BUN/Creat Ratio 24.4 RATIO (10-20); Calcium,Total 9.7 mg/dL (7.6-11.0); Carbon Dioxide 21.6 mmol/L (21.0-32.0); Chloride 102 mmol/L (98-108); Globulin 3.3 g/dL (2.2-4.2); Glucose 250 mg/dL (70-99); Potassium 4.4 mmol/L (3.3-5.1)
[2025-05-12 14:09] LABS: Albumin 3.8 g/dL (2.9-4.4); Gamma Globulin 1.1 g/dL (0.4-1.8); IMMUNOFIXATION RESULT,S Comment: (.); Immunoglobulin A 197 mg/dL (87-352); Immunoglobulin G 1092 mg/dL (586-1602); Immunoglobulin M 140 mg/dL (26-217); PROEL- TOTAL PROTEIN 7.1 g/dL (6.0-8.5)
== END | disposition home or self-care (01) ==
LOC: MTLAB 08:28
PROVIDERS: PCP Family Medicine; Referring Provider Psychiatry & Neurology Neurology; Visit Provider Psychiatry & Neurology Neurology
DX: E11.65 Type 2 diabetes mellitus with hyperglycemia (principal); E87.1 Hypo-osmolality and hyponatremia
CPT/HCPCS: 36415; 80053; 82784; 83036; 84165; 86334; 86335